=== PATIENT | female | born 1955 | race Caucasian/White ===

== ENCOUNTER 2016-04-30 10:53 | Day surgery (SDC) | payer OTHER ==
--- NOTE | 2016-04-20 18:08 | HISTORY & PHYSICAL EXAMINATION ---
DATE OF ADMISSION: 04/30/2016 CHIEF COMPLAINT: Right knee pain. HISTORY OF PRESENT ILLNESS: The patient is a 60-year-old female who complains of right knee pain. She presents with pain on the right side. They were acute traumatic on 02/26/2016. This occurred at work. 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 It is described as aching, sharp and throbbing. The patient then obtained an MRI which showed a medial meniscal tear. PAST MEDICAL HISTORY: Significant for hypertension, hypercholesterolemia, [id number] diabetes. PAST SURGICAL HISTORY: Three C-sections. SOCIAL HISTORY: She denies alcohol use. She denies tobacco use. She denies IV drug use. She lives in a 2-story house. FAMILY HISTORY: Noncontributory. MEDICATIONS: Glipizide 5 mg once a day, metformin 1000 mg 2 times a day, amlodipine 10 mg once a day, atenolol 25 mg once a day, oxybutynin ER 15 mg once a day, fish oil 3 times a day, aspirin 81 mg once a day. ALLERGIES: She has no known drug allergies. REVIEW OF SYSTEMS: She denies fevers, chills, headaches, weight loss, double vision or hearing loss, tremors, dizziness, numbness or tingling, tired, thirsty, hot and cold intolerance, abdominal pain, nausea, vomiting, diarrhea, chest pain, swelling into her legs or feet. Frequency going to the bathroom, pain or burning with urination, incontinence, wheezing, cough, shortness of breath, depression, thoughts of harming herself or harm others, nervousness or anxiousness. She is positive for joint pain, stiffness and swelling of the right knee. OBJECTIVE: GENERAL APPEARANCE: The patient is a 60-year-old female sitting in no acute distress, well dressed, well nourished. She is awake, alert and oriented x3. VITAL SIGNS: She is 5 foot 3 inches, 323 pounds. HEENT: Extraocular movements are intact. PERRLA. Mucosa was moist. No septal deviation. NECK: Supple with no lymphadenopathy, no JVD, no thyromegaly. HEART: Regular rate and rhythm with no murmurs or gallops. LUNGS: Clear to auscultation. No wheezes or rhonchi. ABDOMEN: Soft, nontender, nondistended. Normal bowel sounds. No hepatosplenomegaly. EXTREMITIES: Paying particular attention to the right knee. She is tender along the medial joint line. She is able to extend to 0 degrees, flex to 90 degrees actively. She has a positive Tamia's on the medial joint line. Negative Oracio, negative anterior drawer, posterior drawer. Negative valgus and varus stress tests. NEUROLOGIC: Cranial nerves II through XII are intact. Pulses were compared bilaterally and was equal. IMAGING: MRI of the right knee shows mild chondromalacia patella, mild contusion in the medial femoral condyle, slight truncation of the posterior horn of the medial as well as lateral meniscus and a moderate joint effusion. IMPRESSION: Right knee medial meniscal tear. PLAN: The patient is scheduled to have a partial medial meniscectomy of the right knee. We discussed various treatments and she wishes to proceed with an arthroscopy with partial medial meniscectomy. Risks and benefits to surgery would include but not limited to infection, DVT, pain, stiffness, need for revision surgeries, failure to relieve all symptoms, damage to blood vessels, nerves and anesthesia risks were all discussed with the patient. She wishes to proceed. All questions were answered to her satisfaction. JAYDEN
[2016-04-27 08:39] VITALS: BMI 57.0
--- NOTE | 2016-04-27 09:06 | PAT Medication Instructions ---
Service Date Apr 27, 2016. Current Home Medication List Amlodipine (Norvasc), 10 MG PO QAM Aspirin Enteric Coated (Ecotrin Or Generic *), 81 MG PO QAM Atenolol (Tenormin), 25 MG PO QAM Fish Oil (Dos Rios-3), 1 CAP PO TID Glipizide (Glipizide Er), 1 TAB PO QAM Ibuprofen (Advil), 400 MG PO PRN Metformin HCL (Glucophage *), 1,000 MG PO BID Oxybutynin Chloride (Ditropan Unknown Dose), 15 MG PO QAM Medication Instructions For Your Scheduled Surgery - Hold the following medications 48 hours prior to surgery: Metformin HCL (Glucophage *), 1,000 MG PO BID Fish Oil (Dos Rios-3), 1 CAP PO TID - Hold the following medications the morning of surgery: Glipizide (Glipizide Er), 1 TAB PO QAM Oxybutynin Chloride (Ditropan Unknown Dose), 15 MG PO QAM - Take the following medications the morning of surgery with a sip of water OTHERWISE NOTHING TO EAT OR DRINK AFTER MIDNIGHT: Amlodipine (Norvasc), 10 MG PO QAM Atenolol (Tenormin), 25 MG PO QAM Aspirin Enteric Coated (Ecotrin Or Generic *), 81 MG PO QAM If you have any questions please call us at [phone] or [phone] or [phone]
[2016-04-27 09:42] LABS: BASO % 0.5 %; BASO ABS # 0.03 K/uL (0-0.2); COMPLETE YES; EOS % 6.8 %; IG% 0.2 %; LYMPH % 32.7 %; LYMPH ABS # 2.12 K/uL (1.2-3.4); MEAN CELL VOLUME 96.6 fL (80-100); MEAN CORPUSCULAR HEMOGLOBIN 31.9 pg (25-34); MEAN PLATELET VOLUME 10.3 fL (7.4-10.4); MONO % 6.3 %; NEUT % 53.5 %; PLATELET COUNT 246 K/uL (130-400); RED BLOOD COUNT 3.83 M/uL (4.2-5.4); WHITE BLOOD COUNT 6.49 K/uL (4.8-10.8)
[2016-04-27 10:04] LABS: CALCIUM 8.6 mg/dl (8.5-10.1); CREATININE 0.89 mg/dl (0.60-1.20); POTASSIUM 4.6 mmol/L (3.5-5.1)
[2016-04-27 15:35] LABS: URINE APPEARANCE CLEAR (CLEAR); URINE BILIRUBIN NEG (NEG); URINE COLOR YELLOW; URINE NITRITE NEG (NEG); URINE PH 5.5 (4.5-7.5); URINE SPECIFIC GRAVITY 1.025 (1.000-1.030); UROBILINOGEN NEG (NEG)
[2016-04-27 15:39] LABS: MANUAL MICROSCOPIC REQUIRED? NO; REVIEW REQ? NO
[~2016-04-30] VITALS: Ht 162.6 cm; Wt 149.9 kg
[~2016-04-30 10:53] MED LIST: AMLO-114 PO; ASPEC81 PO; ATEN-173 PO; FENTANYL CITRATE INJ 50 MCG/1 ML 2 ML VIAL ONE; GLC500 PO; GLIP-197 PO; IBUP-1050 PO; LACTATED RINGER'S 1000ML 1,000 ML IV SCH; LIDOCAINE HCL 2% 2 ML VIAL (20MG/ML) ONE; MIDAZOLAM HCL 1 MG/ML 2ML VIAL ONE; OMEG10007 PO; PROPOFOL IV EMULSION 10 MG/ML 20 ML VIAL IV ONE; SUCCINYLCHOLINE CHLORIDE 20 MG/ML 10 ML VIAL IV ONE; [UNRECOGNIZED DRUG - OTHER] PO
[2016-04-30 11:20] VITALS: BP 128/85; PULSE 65; TEMP 36.8; O2SAT 94; Ht 162.6 cm; Wt 149.9 kg
[2016-04-30] MEDS ORDERED: CEFAZOLIN IV 3,000 MG/65 ML D5W IV ONE (11:43)
[2016-04-30] MEDS ORDERED: LIDOCAINE/EPINEPHRINE 1% 20 ML VIAL ONE (12:16)
[2016-04-30] MEDS ORDERED: BUPIVACAINE 0.5 % 5 MG/1 ML MPF 30ML VIAL ONE (12:16)
[2016-04-30] MEDS ORDERED: ROCURONIUM BROMIDE 10 MG/ML 5 ML VIAL ONE (12:54)
--- NOTE | 2016-04-30 16:19 | History & Physical Bridge Note ---
H&P Re-Evaluation Bridge Note: I have examined the patient, reviewed the History & Physical and in the interval since the performance of the History & Physical I have noted the following changes of clinical significance: No changes noted
[2016-04-30] MEDS ORDERED: HYDR-5688 PO (16:20)
--- NOTE | 2016-04-30 16:25 | Discharge Instructions ---
Discharge Instructions Visit Reason for Visit: Right Knee Medial Meniscus Tear Discharge Discharge Diagnosis / Problem: Right knee partial medial meniscetomy Discharge Goals Goal(s): Decrease discomfort, Improve function Activity Recommendations Activity Limitations: per Instructions/Follow-up section Anesthesia . Post Anesthesia Instructions: If you have had General Anesthesia or IV Sedation: * Do not drive today. * Resume driving when surgeon permits. * Do not make important decisions or sign legal documents today. * Call surgeon for: 1. Temperature elevations greater than 101 degrees F. 2. Uncontrollable pain. 3. Excessive bleeding. 4. Persistent nausea and vomiting. 5. Medication intolerance (nausea, vomiting or rash). * For nausea and vomiting use only clear liquids such as: tea, soda, bouillon until nausea subsides, then gradually increase diet as tolerated. * If you have any concerns or questions, call your surgeon's office. If physician is unavailable and it is an emergency, call 911 or go to the nearest emergency room. . Instructions / Follow-Up Instructions / Follow-Up ACTIVITY RECOMMENDATIONS: * You may walk on the leg with or without crutches as comfort permits. * Bending of the knee should start at once. * Do not shower for 48 hours following surgery. SPECIAL CARE INSTRUCTIONS: * You may cleanse the skin adjacent to the small wounds with soap and water at the time of the first dressing change. * The application of an ice bag to the front and sides of the knee will decrease swelling and discomfort for the first 48 hours. * The small incisions may be sore and develop bruising. This bruising does not require any special care. SPECIAL PRECAUTIONS: * If you experience unusual pain unrelieved by prescriptions, temperature elevation (100 degrees F. or above) or progressive swelling or bleeding, you should contact our office at for further evaluation. * You may have been prescribed pain medication. If you experience nausea and/or fine skin rash, discontinue this medication and contact our office at for an alternate medication. DRESSING: * Dressing should be comfortable and absorb any leakage of fluid and/or blood. * The dressing may become moist or bloodstained. * Dressing may be removed 48 hours after surgery and bandaids placed over the small surgical incisions. If can be removed sooner if it becomes very soiled or loose. * Bandaids may be used over next several days as needed and can be discontinued when there is not further drainage from the wounds. FOLLOW UP VISIT: If appointment is not already scheduled: Please call [facility] to make a follow-up appointment for your surgery at 12-14 days after surgery Diet Recommendations Recommended Home Diet: resume previous diet Procedures Procedures Performed: Right Knee Arthroscopy with Partial Medial Menisectomy Pending Studies Studies pending at discharge: no Medical Emergencies . Who to Call and When: Medical Emergencies: If at any time you feel your situation is an emergency, please call 911 immediately. . Non-Emergent Contact Non-Emergency issues call your: Surgeon Call Non-Emergent contact if: temperature is above 101, your pain is not controlled, wound has increased drainage, wound has increased redness, wound has increased pain . . "Provider Documentation" section prepared by Sonny Mccarthy.
[2016-04-30] MEDS ORDERED: ONDANSETRON INJ 2 MG/ML 2 ML VIAL IV PRN ×2 (16:30→17:30)
[2016-04-30] MEDS ORDERED: IBUPROFEN 600 MG TAB PO PRN (16:30)
[2016-04-30] MEDS ORDERED: HYDROCODONE/ACETAMOPHEN 5/325MG TAB PO PRN (16:30)
[2016-04-30] MEDS ORDERED: ONDANSETRON INJ 2 MG/ML 2 ML VIAL ONE (16:43)
[2016-04-30] MEDS ORDERED: LARYING-O-JET KIT (LTA) EXT ONE ×2 (17:10)
[2016-04-30] MEDS ORDERED: LACTATED RINGER'S 1000ML 1,000 ML IV PRN (17:17)
--- NOTE | 2016-04-30 17:21 | [facility] Post Operative Brief Note ---
Immediate Operative Summary Operative Date Apr 30, 2016. Pre-Operative Diagnosis Right medial meniscal tear Post-Operative Diagnosis Same as preoperative diagnosis + LMT, chondromalcia patella Procedure(s) Performed Right Knee Arthroscopy with Partial Medial Menisectomy Surgeon Dr iLu Rolloff Driver Surgeon(s) 0 Estimated Blood Loss min Findings above Specimens 0 Drains 0 Anesthesia geta Complication(s) None Disposition Recovery Room / PACU
[2016-04-30] MEDS ORDERED: NEOSTIGMINE METHYLSULFATE 5 MG/5 ML SYR ONE (17:27)
[2016-04-30] MEDS ORDERED: GLYCOPYRROLATE INJ 0.2 MG/ML VIAL ONE (17:27)
[2016-04-30] MEDS ORDERED: PROPOFOL IV EMULSION 10 MG/ML 20 ML VIAL IV ONE (17:27)
[2016-04-30] MEDS ORDERED: KETOROLAC TROMETHAMINE 30 MG/ML VIAL IV. PRN (17:30)
[2016-04-30] MEDS ORDERED: FENTANYL CITRATE INJ 50 MCG/1 ML 2 ML VIAL IV PRN (17:30)
[2016-04-30] MEDS ORDERED: FENTANYL CITRATE INJ 50 MCG/1 ML 2 ML VIAL ONE (17:36)
--- NOTE | 2016-04-30 17:54 | Anesthesiology Progress Note ---
Anesthesia Post Op Note Date & Time Apr 30, 2016 at 17:53 Vital Signs Pain Intensity: 4 Vital Signs Past 12 Hours Date Time Temp Pulse Resp B/P Pulse Ox O2 Delivery O2 Flow Rate FiO2 04/30/16 17:35 46 12 158/60 99 Mask 10 04/30/16 17:27 36.7 51 16 116/61 100 Mask 10 04/30/16 11:20 36.8 65 16 128/85 94 Room Air Notes Mental Status: alert / awake / arousable, participated in evaluation Pt Amnestic to Procedure: Yes Nausea / Vomiting: adequately controlled Pain: adequately controlled Airway Patency, RR, SpO2: stable & adequate BP & HR: stable & adequate Hydration State: stable & adequate Anesthetic Complications: no major complications apparent Pt doing well.
[2016-04-30 18:10] VITALS: BP 154/61; PULSE 52; TEMP 36.4; O2SAT 98
[2016-04-30 18:45] VITALS: BP 159/83; PULSE 57; TEMP 36.4; O2SAT 95
--- NOTE | 2016-05-01 01:03 | OPERATIVE REPORT ---
DATE OF OPERATION: 04/30/2016 PREOPERATIVE DIAGNOSIS: Right knee medial meniscal tear. POSTOPERATIVE DIAGNOSIS: Same plus lateral meniscal tear, chondromalacia patella. PROCEDURES: Right partial medial meniscectomy, partial lateral meniscectomy, chondroplasty of patella. SURGEON: Dr. Liu. SECURITY REPRESENTATIVE: None. ANESTHESIA: General endotracheal anesthesia. SPECIMENS: None. COMPLICATIONS: None. ESTIMATED BLOOD LOSS: Minimal. INDICATIONS: The patient is a 60-year-old female with progressive pain in the right knee. MRI demonstrated a tear of the medial meniscus. We discussed various treatment measures, she wished to proceed with arthroscopy. Risks, benefits, and alternatives of surgery including but not limited to infection, DVT, pain, stiffness, need for urgent surgery, failure to relieve all symptoms, damage to blood vessels, damage to nerves, risks of anesthesia discussed with patient and she wished to proceed. DESCRIPTION OF PROCEDURE: The patient was identified, laterality was confirmed and marked. She received a preoperative antibiotic. She was transferred to the operating room, placed in supine position and induced in general endotracheal anesthesia per the anesthesia staff. A well-padded tourniquet was placed on the leg. Limb was then prepped and draped with ChloraPrep. Limb was exsanguinated and tourniquet was inflated. Portal sites were anesthetized with 1% lidocaine with epinephrine. I made a standard anterolateral viewing portal, made a stab incision, bluntly entered the suprapatellar pouch and then under spinal needle localization, established an anteromedial portal. She had grade 2 undersurface change of the patella. Unstable chondral flaps were debrided back to a stable base utilizing a shaver. She had grade 3 changes diffusely over the cartilage of the medial femoral condyle. This was debrided utilizing a shaver. She had a tear of the posterior horn of the medial meniscus near the meniscal root. This was debrided back to a stable base utilizing combination of shaver as well as meniscal biter. ACL and PCL were intact. She had a small degenerative tearing of the body and anterior horn of the lateral meniscus. This was debrided back to a stable base utilizing a shaver. All instrumentation was removed the knee. Portal sites were closed with nylon. Sterile dressing was applied and tourniquet was released. All needle and sponge counts were correct at the end of the procedure. The patient was transferred to the PACU in stable condition without apparent complication. I attest to the content of the Intraoperative Record and any orders documented therein. Any exceptio ns are noted below.
== END 2016-04-30 19:01 | disposition home or self-care (01) ==
LOC: C.ACU 10:53
PROVIDERS: ATTEND Orthopaedic Surgery
DX: M23.221 Derangement of posterior horn of medial meniscus due to old tear or injury, right knee (principal); M23.241 Derangement of anterior horn of lateral meniscus due to old tear or injury, right knee; M22.41 Chondromalacia patellae, right knee; I10 Essential (primary) hypertension; E78.00 Pure hypercholesterolemia, unspecified; E11.9 Type 2 diabetes mellitus without complications; Z79.82 Long term (current) use of aspirin

== ENCOUNTER → 2016-10-13 | Outpatient (CLI) | payer OTHER ==
[~2016-10-13] MED LIST changes: -FENTANYL CITRATE INJ 50 MCG/1 ML 2 ML VIAL ONE; +HYDR-5688 PO; -LACTATED RINGER'S 1000ML 1,000 ML IV SCH; -LIDOCAINE HCL 2% 2 ML VIAL (20MG/ML) ONE; -MIDAZOLAM HCL 1 MG/ML 2ML VIAL ONE; -PROPOFOL IV EMULSION 10 MG/ML 20 ML VIAL IV ONE; -SUCCINYLCHOLINE CHLORIDE 20 MG/ML 10 ML VIAL IV ONE
[2016-10-13 15:59] LABS: URINE APPEARANCE CLOUDY (CLEAR); URINE BILIRUBIN NEG (NEG); URINE COLOR DK YELLOW; URINE EPITHELIAL CELL AUTO >30 /lpf (0-5); URINE NITRITE NEG (NEG); URINE SPECIFIC GRAVITY 1.034 (1.000-1.030); UROBILINOGEN NEG (NEG)
[2016-10-13 16:03] LABS: MANUAL MICROSCOPIC REQUIRED? NO; REVIEW REQ? YES
== END | disposition home or self-care (01) ==
LOC: C.LAB1850 14:34
PROVIDERS: ATTEND Nurse Practitioner Family
DX: R39.9 Unspecified symptoms and signs involving the genitourinary system (principal)

== ENCOUNTER → 2016-11-15 | Outpatient (CLI) | payer OTHER ==
[~2016-11-15] MED LIST changes: -HYDR-5688 PO
[2016-11-15 12:38] LABS: ALT/SGPT 26 U/L (12-78); AST/SGOT 15 U/L (15-37); BLOOD UREA NITROGEN 19 mg/dl (7-18); BUN/CREATININE RATIO 21.4 (10-20); CALCIUM 9.1 mg/dl (8.5-10.1); CARBON DIOXIDE 27 mmol/L (21-32); CHLORIDE 106 mmol/L (98-107); CHOLESTEROL 192 mg/dl (0-200); CREATININE 0.88 mg/dl (0.60-1.20); GLUCOSE 104 mg/dl (70-99); POTASSIUM 4.2 mmol/L (3.5-5.1); SODIUM 141 mmol/L (136-145)
[2016-11-15 12:40] LABS: ALKALINE PHOSPHATASE 86 U/L (45-117); CHOLESTEROL/HDL RATIO 4.7; ESTIMATED AVERAGE GLUCOSE 126 mg/dl; HA1C FLAG Normal (Normal); HDL CHOLESTEROL 41 mg/dl; LDL CHOLESTEROL CALCULATED 90 mg/dl; TRIGLYCERIDES 307 mg/dl (0-150); VERY LOW DENSITY LIPOPROT CALC 61 mg/dl
== END | disposition home or self-care (01) ==
LOC: C.LAB1850 09:56
PROVIDERS: ATTEND Nurse Practitioner Family
DX: E78.5 Hyperlipidemia, unspecified (principal); E88.81 Metabolic syndrome and other insulin resistance; E11.9 Type 2 diabetes mellitus without complications

== ENCOUNTER → 2017-03-23 | Outpatient (CLI) | payer OTHER ==
[~2017-03-23] MED LIST changes: -AMLO-114 PO; +AMLO10TA3 PO
[2017-03-23 15:19] LABS: INFLUENZA A PCR Neg for Influ A (NEG); INFLUENZA B PCR Neg for Influ B (NEG)
== END | disposition home or self-care (01) ==
LOC: C.LAB1850 13:37
PROVIDERS: ATTEND Internal Medicine
DX: J04.0 Acute laryngitis (principal)

== ENCOUNTER → 2017-11-09 | Outpatient (CLI) | payer OTHER ==
[2017-11-09 10:02] LABS: ALBUMIN 3.6 gm/dl (3.4-5.0); ALKALINE PHOSPHATASE 73 U/L (45-117); ALT/SGPT 29 U/L (12-78); AST/SGOT 17 U/L (15-37); BLOOD UREA NITROGEN 21 mg/dl (7-18); CALCIUM 9.3 mg/dl (8.5-10.1); CARBON DIOXIDE 27 mmol/L (21-32); CHOLESTEROL 154 mg/dl (0-200); CREATININE 1.01 mg/dl (0.60-1.20); GLUCOSE 109 mg/dl (70-99); LDL CHOLESTEROL CALCULATED 51 mg/dl; POTASSIUM 4.1 mmol/L (3.5-5.1); SODIUM 141 mmol/L (136-145); TOTAL PROTEIN 7.2 gm/dl (6.4-8.2)
[2017-11-09 10:08] LABS: HEMOGLOBIN A1C 6.2 % (4.5-5.6)
== END | disposition home or self-care (01) ==
LOC: C.LAB1850 07:52
PROVIDERS: ATTEND Internal Medicine
DX: E88.81 Metabolic syndrome and other insulin resistance (principal)

== ENCOUNTER 2022-01-29 11:59 | Inpatient (IN) ==
[2022-01-29 12:33] LABS: Basophils # (auto) 0.06 K/uL (0-0.2); Basophils % (auto) 0.9 %; Eosinophils # (auto) 0.42 K/uL (0-0.50); Eosinophils % (auto) 6.3 %; Hematocrit (blood only) 38.8 % (34.1-44.9); Hemoglobin 12.8 g/dl (12.0-16.0); Immature Granulocytes # (auto) 0.01 K/uL (0.00-0.02); Immature Granulocytes % (auto) 0.1 %; Lymphocytes # (auto) 2.11 K/uL (1.2-3.4); Lymphocytes % (auto) 31.6 %; Mean Corpuscular Hemoglobin 31.8 pg (25.0-34.0); Mean Corpuscular Volume 96.5 fL (80.0-100.0); Mean Platelet Volume 10.5 fL (9.4-12.3); Monocytes # (auto) 0.49 K/uL (0.24-0.82); Monocytes % (auto) 7.3 %; Neutrophils # (auto) 3.58 K/uL (1.4-6.5); Neutrophils % (auto) 53.8 %; Platelet Count 213 K/uL (130-400); RDW Coefficient of Variation 13.6 % (11.5-14.5); RDW Standard Deviation 48.7 fL (36.4-46.3); Red Blood Count 4.02 M/uL (3.93-5.22); White Blood Count 6.67 K/ul (4.8-10.8)
[2022-01-29 12:47] LABS: Partial Thromboplastin Time 26.8 Seconds (21.0-31.0); Prothrombin Time 10.8 Seconds (9.0-12.0)
--- NOTE | 2022-01-29 12:51 | XRay Report ---
TWO VIEW CHEST CLINICAL HISTORY: Dyspnea. FINDINGS: PA and lateral chest radiographs are compared to study dated 06/15/2017. The heart is marked ly enlarged. There is pulmonary vascular congestion. Bibasilar airspace opacities likely represent sc arring/atelectasis. There is no large pleural effusion or pneumothorax. The skeletal structures are o steopenic. The bony thorax appears intact. Degenerative change is noted throughout the thoracic spine . IMPRESSION: 1. Cardiomegaly with evidence of congestive failure. 2. Bibasilar opacities likely represent scarring/atelectasis. Correlate clinically for evidence of a superimposed infectious/inflammatory pneumonitis ACT 112: Negative or not required by law. Electronically signed by: Reuben Pappas M.D. 01/29/2022 12:49 PM
[2022-01-29 13:11] LABS: Albumin Globulin Ratio 1.5 (0.9-2); Albumin Level 4.1 gm/dl (3.4-5.0); BUN Creatinine Ratio 20.5 (10-20); Bilirubin,Total 0.7 mg/dl (0.2-1.0); Est GFR (African American) 86.4 ml/min; Est GFR (Non-African American) 74.5 ml/min; Globulin 2.8 gm/dl (2.5-4.0); Magnesium 1.8 mg/dl (1.7-2.4); Potassium 4.3 mmol/L (3.5-5.1); Total Protein 6.9 gm/dl (6.0-8.3)
--- NOTE | 2022-01-29 14:35 | Emergency Department Note ---
Impression & Plan Hypoxia, Hypertension, Lower lobe pneumonia, COVID-19, Elevated troponin I level ED Provider Note Provider: Abdiel Beard MD DATE OF SERVICE: 01/29/2022 CHIEF COMPLAINT: Shortness of breath HISTORY OF PRESENT ILLNESS: Patient is a 66-year-old female history of diabetes, hypertension, and obesity presenting here today reporting that over the past about 6 months she has noticed she has been a bit more short of breath particular with exertion. Denies any pain complaint previously or today in her chest or otherwise. Denies fainting or lightheadedness. Patient states she isolated heavily for COVID and just came out this spring from that and would get short of breath with walking. States she gets short of breath going up the stairs some too. Did have COVID which was minimal with only some cold symptoms for a couple of days at the beginning of last month. She was vaccinated for COVID. Denies significant recent cough or fevers. No significant abdominal complaints reported or significant leg swelling. Patient states that her breathing last year to see maybe little bit worse and they got a home pulse ox. This read in the 80s. She states she did this after resting for at least several minutes. She does state that particular when going up the stairs she has to stop and sit at the top for little while to recover. She states she called her doctor's office with the low oxygen reading at 83 earlier which she does report did improve over just a bit of time into the mid 90s at home and she was referred here. REVIEW OF SYSTEMS: A total of 10 review of systems was obtained and negative except as stated above in the HPI. PAST MEDICAL HISTORY: As noted above MEDICATIONS: Reviewed home medications including 1 mg aspirin SOCIAL HISTORY: Non-smoker, lives at home with and dog PHYSICAL EXAM: GENERAL: alert and oriented in no acute distress on stretcher Head: normocephalic and atraumatic EYES: No injection, discharge or icterus. NECK: Trachea midline. Supple. ENT: Mucous membranes pink and moist. Pharynx without erythema or exudate. LUNGS: Airway patent. No retractions. Breath sounds clear with Diminished bases HEART: Regular rate and rhythm. No chest wall tenderness ABDOMEN: Soft and non-tender, without guarding or rebound. SKIN: Acyanotic, warm, dry, without rashes EXTREMITIES: Without swelling, tenderness or deformity NEUROLOGICAL: No focal deficits. No aphasia. No facial droop or slurred speech. Ambulatory. EK bpm normal sinus rhythm. No PVC or PAC. Some inferior lateral T wave inversions noted. QTc 452. Compared to previous EKG from April 2016 inferior lateral T wave inversions appear new. Although nonspecific T wave inversions noted previously. CONTINUOUS CARDIAC MONITORING: was ordered and showed a heart rate of 80s-90s bpm in NSR Patient's laboratory studies and imaging reviewed. Differential includes Reactive airway disease, pneumonia, pneumothorax, COPD, CHF, infections, cardiac ischemia, pulmonary embolism, musculoskeletal, gastrointestinal, as well as other pathologies. IMPRESSION/MEDICAL DECISION MAKING: Patient with some chronicity of shortness of breath along the past 6 months. Worse last several days. COVID a month ago but no significant effect and symptom without states COVID was pretty minimal for her and she was vaccinated. Patient denies other sick contacts or significant leg swelling. Denies any chest neck or arm pain. Patient's symptoms mainly there with exertion. Maybe some component of deconditioning and some relation to obesity. Chest x-ray question some atelectasis but does not clearly seem consistent with pneumonia. EKG and troponin completed blood lower suspicion for ACS as she is not having significant chest discomfort. Given recent COVID and her shortness of breath with oxygen levels in the low 90s at rest did complete a CTA to exclude PE. Patient ambulates in the room and is able to talk during this and sats drop very transiently into the high 80s with them very quickly rebounded after this. Some cardiomegaly on the chest x-ray indicates again this may be more of a chronic issue. Have a lower suspicion for severe acute CHF. Blood pressure seems significant elevated discussed with her following this. CT without evidence of PE per report. The question some mild pulm edema & small bilateral pleural effusions. Question bilateral lower lobe pneumonia. Patient's oxygen requirement while here after CT increased fair amount now to 10-15 L on nonrebreather. Troponin mildly elevated likely more demand from some hypoxia. Given that she require admission. We will give some ceftriaxone at this time for antibiotic coverage and give a small dose of Lasix for any fluid overload. Continues to test COVID-positive but again had this just over a month ago and may continue to be positive from that. Hospitalist contacted and patient updated. DIAGNOSIS: hypoxia, lower lobe pneumonia, elevated troponin, hypertension, pleural effusions DISPOSITION: Hospitalist will evaluate Patient was agreeable with this plan. Critical Care I have personally spent 33 minutes of critical care time in the direct management of this patient. This includes bedside care, interpretation of diagnostic studies, and testing, discussion with consultants, patient, and family members, and other required patient management activities. These 33 minutes is in excess of all separately billable procedures. Past Med/Surg History Medical History (Updated 01/29/22 @ 17:28 by Omaira Morley PA-C) Diabetes mellitus, type 2 NIDDM GERD (gastroesophageal reflux disease) OCCASIONALLY Hyperlipidemia Hypertension Overactive bladder Surgical History History of arthroscopy RIGHT KNEE History of section X3 History of colonoscopy History of tonsillectomy S/P nasal surgery Family History Daughter Asthma Sister Breast cancer Father Heart disease Mother Hypertension Hypercholesteremia Brother Hypertension Other No pertinent family history Denies family history of Ovarian cancer Prostate cancer Myocardial infarction Colorectal cancer Social History (Updated 11/13/21 @ 09:51 by SHAWN Sloan) Smoking Status: Never smoker Second Hand Exposure: No ( A CHILD); Hx Alcohol Use: No Hx Substance Use: No Preferred Language: Icelandic Communication Ability: Effective Visual Impairment: No Limitations Hearing Ability: Normal Consulting Senior Practice Director Required: No Beliefs That Will Affect Care: None marital status: Current Living Situation: Spouse current occupational status: employed Feels Safe at Home: Yes Childhood Exposure to Second-Hand Smoke: Yes (parent smoked) caffeine: Yes Seatbelt Use: always Assistive Devices: Glasses Allergies Allergies Allergy/AdvReac Type Severity Reaction Status Date / Time MICHELLE Inhibitors Allergy Intermediate EYE Verified 01/29/22 16:40 SWELLING atorvastatin AdvReac Intermediate MUSCLE Verified 01/29/22 16:40 ACHES Home Meds Home Medications Medication Instructions Recorded Confirmed aspirin 81 mg tablet,delayed 81 mg PO QAM 02/15/18 01/29/22 release (Mirta Low Dose Aspirin) omega-3 fatty acids-fish oil 360 2 cap PO TID 11/21/18 01/29/22 mg-1,200 mg capsule (Fish Oil) blood-glucose meter 11/12/21 11/13/21 cholecalciferol (vitamin D3) 125 125 mcg PO DAILY 01/29/22 01/29/22 mcg (5,000 unit) tablet (Vitamin D3) ibuprofen 200 mg tablet 200 mg PO DIRECTED PRN Pain 01/29/22 01/29/22 mirabegron 50 mg tablet,extended 50 mg PO DAILY 01/29/22 01/29/22 release 24 hr (Myrbetriq) tolterodine 4 mg capsule,extended 4 mg PO DAILY 01/29/22 01/29/22 release 24 hr Previous Rx's Medication Instructions Recorded mecobalamin (vitamin B12) 1,000 1,000 mcg sublingual DAILY #90 tabs 07/30/19 mcg disintegrating tablet,sublingual losartan 25 mg tablet 25 mg PO QAM #90 tabs 06/29/21 liraglutide 0.6 mg/0.1 mL (18 mg/3 1.8 mg (0.3 mL) subcut DAILY #3 08/03/21 mL) subcutaneous pen injector Boxes ([employer] 3-Christiano) simvastatin 20 mg tablet 20 mg PO HS #90 tabs 08/03/21 amlodipine 10 mg tablet 10 mg PO QAM #90 tabs 09/14/21 pen needle, diabetic 32 gauge x #100 ea 11/12/21 532" (BD Ultra-Fine Nuris Pen Needle) metformin 1,000 mg tablet 1,000 mg PO BID #180 tabs 11/13/21 Results & Data (ED) Vital Signs Vital Signs - 24 hr 01/29/22 12:02 01/29/22 13:15 01/29/22 13:15 Temperature 36.1 C L Temperature Source Temporal Artery Scan Pulse Rate 96 H Pulse Rate [Right Finger] 86 Respiratory Rate 20 22 Respiratory Depth Normal Blood Pressure 163/100 H Blood Pressure [Right Arm] 172/107 H Blood Pressure Mean 121 Blood Pressure Mean [Right Arm] 128 Blood Pressure Position Sitting Pulse Oximetry 92 92 Oxygen Delivery Method Room Air Room Air Room Air Sepsis Recent Fever Within 48 Hours No Sepsis New/Unexplained Change in Mental Status No Sepsis Action Taken by Nursing No Action Required Pulse Oximetry Post Tiitration 92 01/29/22 13:15 01/29/22 16:33 Temperature Temperature Source Pulse Rate Pulse Rate [Right Finger] 81 Respiratory Rate Respiratory Depth Blood Pressure Blood Pressure [Right Arm] Blood Pressure Mean Blood Pressure Mean [Right Arm] Blood Pressure Position Pulse Oximetry 92 95 Oxygen Delivery Method Room Air Non-rebreather Sepsis Recent Fever Within 48 Hours Sepsis New/Unexplained Change in Mental Status Sepsis Action Taken by Nursing Pulse Oximetry Post Tiitration Laboratory Data Result diagrams: 01/29/22 12:13 01/29/22 12:13 Lab Results 01/29/22 01/29/22 01/29/22 Range/Units 12:13 12:13 12:13 WBC 6.67 (4.8-10.8) K/ul RBC 4.02 (3.93-5.22) M/uL Hgb 12.8 (12.0-16.0) g/dl Hct 38.8 (34.1-44.9) % MCV 96.5 (80.0-100.0) fL MCH 31.8 (25.0-34.0) pg MCHC 33.0 (32.0-36.0) g/dL RDW Std Deviation 48.7 H (36.4-46.3) fL RDW Coeff of Adams 13.6 (11.5-14.5) % Plt Count 213 (130-400) K/uL MPV 10.5 (9.4-12.3) fL Immature Gran % (Auto) 0.1 % Neut % (Auto) 53.8 % Lymph % (Auto) 31.6 % Morgan % (Auto) 7.3 % Eos % (Auto) 6.3 % Baso % (Auto) 0.9 % Neut # (Auto) 3.58 (1.4-6.5) K/uL Lymph # (Auto) 2.11 (1.2-3.4) K/uL Morgan # (Auto) 0.49 (0.24-0.82) K/uL Eos # (Auto) 0.42 (0-0.50) K/uL Baso # (Auto) 0.06 (0-0.2) K/uL Immature Gran # (Auto) 0.01 (0.00-0.02) K/uL PT 10.8 (9.0-12.0) Seconds INR 1.0 (0.9-1.1) APTT 26.8 (21.0-31.0) Seconds PTT Ratio 1.0 Sodium 144 (136-145) mmol/L Potassium 4.3 (3.5-5.1) mmol/L Chloride 110 H (98-107) mmol/L Carbon Dioxide 27 (21-32) mmol/L Anion Gap 7 (3-11) BUN 17 (6-23) mg/dl Creatinine 0.83 (0.6-1.2) mg/dl Est Cr Clr Drug Dosing 95.0 ml/min Est GFR ( Amer) 86.4 ml/min Est GFR (Non-Af Amer) 74.5 ml/min BUN/Creatinine Ratio 20.5 H (10-20) Glucose 111 H (70-99(Fasting)) mg/dl Calcium 9.0 (8.5-10.1) mg/dl Magnesium 1.8 (1.7-2.4) mg/dl Total Bilirubin 0.7 (0.2-1.0) mg/dl AST 25 (13-39) U/L ALT 34 (7-52) U/L Alkaline Phosphatase 61 (34-104) U/L Troponin I High Sens (0-14) pg/ml Total Protein 6.9 (6.0-8.3) gm/dl Albumin 4.1 (3.4-5.0) gm/dl Globulin 2.8 (2.5-4.0) gm/dl Albumin/Globulin Ratio 1.5 (0.9-2) Procalcitonin (0-0.5) ng/ml SARS-CoV-2 (PCR) (Negative) Influenza Type A (PCR) (Neg) Influenza Type B (PCR) (Neg) RSV (RT-PCR) (Neg) 01/29/22 01/29/22 01/29/22 Range/Units 12:13 12:13 14:07 WBC (4.8-10.8) K/ul RBC (3.93-5.22) M/uL Hgb (12.0-16.0) g/dl Hct (34.1-44.9) % MCV (80.0-100.0) fL MCH (25.0-34.0) pg MCHC (32.0-36.0) g/dL RDW Std Deviation (36.4-46.3) fL RDW Coeff of Adams (11.5-14.5) % Plt Count (130-400) K/uL MPV (9.4-12.3) fL Immature Gran % (Auto) % Neut % (Auto) % Lymph % (Auto) % Morgan % (Auto) % Eos % (Auto) % Baso % (Auto) % Neut # (Auto) (1.4-6.5) K/uL Lymph # (Auto) (1.2-3.4) K/uL Morgan # (Auto) (0.24-0.82) K/uL Eos # (Auto) (0-0.50) K/uL Baso # (Auto) (0-0.2) K/uL Immature Gran # (Auto) (0.00-0.02) K/uL PT (9.0-12.0) Seconds INR (0.9-1.1) APTT (21.0-31.0) Seconds PTT Ratio Sodium (136-145) mmol/L Potassium (3.5-5.1) mmol/L Chloride (98-107) mmol/L Carbon Dioxide (21-32) mmol/L Anion Gap (3-11) BUN (6-23) mg/dl Creatinine (0.6-1.2) mg/dl Est Cr Clr Drug Dosing ml/min Est GFR ( Amer) ml/min Est GFR (Non-Af Amer) ml/min BUN/Creatinine Ratio (10-20) Glucose (70-99(Fasting)) mg/dl Calcium (8.5-10.1) mg/dl Magnesium (1.7-2.4) mg/dl Total Bilirubin (0.2-1.0) mg/dl AST (13-39) U/L ALT (7-52) U/L Alkaline Phosphatase (34-104) U/L Troponin I High Sens 91.7 H* (0-14) pg/ml Total Protein (6.0-8.3) gm/dl Albumin (3.4-5.0) gm/dl Globulin (2.5-4.0) gm/dl Albumin/Globulin Ratio (0.9-2) Procalcitonin < 0.05 (0-0.5) ng/ml SARS-CoV-2 (PCR) POSITIVE A* (Negative) Influenza Type A (PCR) Negative (Neg) Influenza Type B (PCR) Negative (Neg) RSV (RT-PCR) Negative (Neg) Administered Medications Discontinued Medications Furosemide (Furosemide Inj 20 Mg/2 Ml Vial) 20 mg IV ONE ONE Stop: 01/29/22 16:32 Last Admin: 01/29/22 16:40 Dose: 20 mg Documented By: IVAN Ceftriaxone Sodium (Rocephin) 2,000 mg in 70 mls @ 140 mls/hr IV NOW STA Stop: 01/29/22 17:01 Last Infusion: 01/29/22 17:16 Dose: 0 mls/hr Documented By: Admin: 01/29/22 16:41 Dose: 140 mls/hr Documented By: IVAN Ioversol (Optiray 320 500ml) 110 ml IV ONCE ONE Stop: 01/29/22 16:09 Last Admin: 01/29/22 16:11 Dose: 110 ml Documented By: DELBERT Imaging Data Radiologist's Impression: Chest X-Ray 01/29/22 12:07 TWO VIEW CHEST CLINICAL HISTORY: Dyspnea. FINDINGS: PA and lateral chest radiographs are compared to study dated 8. The heart is markedly enlarged. There is pulmonary vascular congestion. Bibasilar airspace opacities likely represent scarring/atelectasis. There is no large pleural effusion or pneumothorax. The skeletal structures are osteopenic. The bony thorax appears intact. Degenerative change is noted throughout the thoracic spine. IMPRESSION: 1. Cardiomegaly with evidence of congestive failure. 2. Bibasilar opacities likely represent scarring/atelectasis. Correlate clinically for evidence of a superimposed infectious/inflammatory pneumonitis ACT 112: Negative or not required by law. Electronically signed by: Reuben Pappas M.D. 01/29/2022 12:49 PM Chest CTA 01/29/22 14:27 CHEST CTA for PULMONARY ARTERIES CT DOSE: 1056.94 mGy.cm HISTORY: PE, shortness of breath, recent covid TECHNIQUE: Multiaxial CT images of the chest were performed following the intravenous administration of contrast to evaluate the pulmonary arteries. Maximal intensity projection images were also obtained. A dose lowering technique was utilized adhering to the principles of ALARA. COMPARISON STUDY: Chest 01/29/2022. FINDINGS: Retrograde opacification of contrast into the hepatic veins. Otherwise, the visualized liver and spleen are unremarkable. Normal thyroid gland. Normal caliber esophagus. The heart is moderately enlarged. No peric ardial effusion. There are small bilateral pleural effusions. Normal caliber thoracic aorta. The thoracic aorta is not well opacified. However, there is no definite evidence for an aortic dissection. There is an aberrant right subclavian artery. There are few mildly enlarged mediastinal lymph nodes measuring up to 12 mm in short axis diameter. No significant hilar lymphadenopathy. No suspicious lytic or blastic osseous lesions. Nondiagnostic evaluation of the bilateral lower lobe subsegmental pulmonary arteries due to the motion artifact. Otherwise, the remaining pulmonary arteries show no filling defects to suggest a pulmonary embolus. No pneumothorax. The central airways are patent. Mild respiratory motion artifact is noted. There is near diffuse interlobular septal thickening consistent with mild pulmonary edema. There are also patchy airspace opacities within the bilateral lower lobes posteriorly. This is greater than expected for atelectasis and therefore favors a pneumonia. IMPRESSION: 1. No evidence for pulmonary embolus with limitations as described above. 2. Cardiomegaly with mild pulmonary edema and small bilateral pleural effusions. 3. Patchy airspace opacities within the bilateral lower lobes posteriorly. This favors a pneumonia. 4. A few borderline-enlarged mediastinal lymph nodes which may be reactive. ACT 112: Negative or not required by law. Electronically signed by: Panfilo Anderson M.D. 01/29/2022 4:29 PM Discharge Plan Visit Data Chief Complaint: Shortness of Breath/Dyspnea Stated Complaint: SHORTNESS OF BREATH ED Provider: Abdiel Beard Discharge Problem: Hypoxia, Hypertension, Lower lobe pneumonia, COVID-19, Elevated troponin I level Patient Disposition: Admitted As Inpatient Discharge Instructions Interventions: ED Discharge Assessment Last Done: 01/29/22 19:54 : Hypertension Qualifiers: Hypertension type: unspecified Qualified Code(s): I10 - Essential (primary) hypertension Lower lobe pneumonia Qualifiers: Pneumonia type: due to unspecified organism Laterality: bilateral Qualified C ode(s): J18.9 - Pneumonia, unspecified organism
[2022-01-29 15:27] LABS: Influenza A virus by PCR Negative (Neg); Influenza B virus by PCR Negative (Neg); RSV by PCR Negative (Neg)
--- NOTE | 2022-01-29 15:37 | Electrocardiogram Report ---
Test Reason : Blood Pressure : / mmHG Vent. Rate : 094 BPM Atrial Rate : 094 BPM P-R Int : 154 ms QRS Dur : 104 ms QT Int : 362 ms P-R-T Axes : 059 011 159 degrees QTc Int : 452 ms Normal sinus rhythm Possible Left atrial enlargement T wave abnormality, consider inferolateral ischemia Abnormal ECG When compared with ECG of 27-APR-2016 09:16, QRS duration has increased T wave inversion now evident in Lateral leads Confirmed by Hugo Sepulveda ([id number]) on 01/29/2022 3:37:20 PM Referred By: Valdez Silveira Confirmed By:Hugo Sepulveda
[2022-01-29] MEDS ORDERED: OPTIRAY 320 500ml IV ONE (16:08)
[2022-01-29 16:24] LABS: SARS CoV2 RNA(COVID-19)Cepheid POSITIVE (Negative)
--- NOTE | 2022-01-29 16:30 | CT Scan Report ---
CHEST CTA for PULMONARY ARTERIES CT DOSE: 1056.94 mGy.cm HISTORY: PE, shortness of breath, recent covid TECHNIQUE: Multiaxial CT images of the chest were performed following the intravenous administration of contrast to evaluate the pulmonary arteries. Maximal intensity projection images were also obtaine d. A dose lowering technique was utilized adhering to the principles of ALARA. COMPARISON STUDY: Chest 01/29/2022. FINDINGS: Retrograde opacification of contrast into the hepatic veins. Otherwise, the visualized live r and spleen are unremarkable. Normal thyroid gland. Normal caliber esophagus. The heart is moderatel y enlarged. No pericardial effusion. There are small bilateral pleural effusions. Normal caliber thor acic aorta. The thoracic aorta is not well opacified. However, there is no definite evidence for an a ortic dissection. There is an aberrant right subclavian artery. There are few mildly enlarged mediast inal lymph nodes measuring up to 12 mm in short axis diameter. No significant hilar lymphadenopathy. No suspicious lytic or blastic osseous lesions. Nondiagnostic evaluation of the bilateral lower lobe subsegmental pulmonary arteries due to the motion artifact. Otherwise, the remaining pulmonary arteri es show no filling defects to suggest a pulmonary embolus. No pneumothorax. The central airways are p atent. Mild respiratory motion artifact is noted. There is near diffuse interlobular septal thickenin g consistent with mild pulmonary edema. There are also patchy airspace opacities within the bilateral lower lobes posteriorly. This is greater than expected for atelectasis and therefore favors a pneumo nely. IMPRESSION: 1. No evidence for pulmonary embolus with limitations as described above. 2. Cardiomegaly with mild pulmonary edema and small bilateral pleural effusions. 3. Patchy airspace opacities within the bilateral lower lobes posteriorly. This favors a pneumonia. 4. A few borderline-enlarged mediastinal lymph nodes which may be reactive. ACT 112: Negative or not required by law. Electronically signed by: Panfilo Anderson M.D. 01/29/2022 4:29 PM
[2022-01-29] MEDS ORDERED: FUROSEMIDE INJ 20 MG/2 ML VIAL IV ONE (16:31)
[2022-01-29] MEDS ORDERED: cefTRIAXone SODIUM 2,000 MG/70 ML BAG IV STA (16:32)
--- NOTE | 2022-01-29 17:07 | History & Physical Report ---
Date of Service January 29, 2022 Assessment & Plan (1) Shortness of breath: Plan: - Sounds like it is an acute worsening of chronic shortness of breath over the past several months, likely multifactorial given recent COVID-19 infection, volume overload with suspected underlying CHF, obesity hypoventilation syndrome. - Management as above. Patient currently resting comfortably. - COVID + in ED however patient was postive one month ago. does not require isolation precautions. (2) Elevated troponin I level: Plan: - Elevated at 90, no prior history of CAD, EKG with T wave inversion lateral leads, left atrial enlargement. - Patient denies any chest pain, palpitations, heaviness. - Suspect this is elevated due to hypoxia, demand mismatch. - We will trend overnight, obtain echo. - New EKG, troponin with any complaints of chest pain. (3) Lower lobe pneumonia: Plan: - As reported by chest CT, however patient without WBC, left shift, elevated Pro-Ernesto. - Given her complaints of shortness of breath, we will treat with Rocephin for now, (4) CHF (congestive heart failure): Plan: - Worsening shortness of breath over the past several days with evidence of congestive heart failure, pulmonary edema, bilateral pleural effusion seen on CXR and CTA chest. - Patient is diuretic branden, therefore will start on 20 mg IV twice daily. First dose given in ED. - Echo ordered as above. (5) Diabetes mellitus: Plan: - On liraglutide and metformin at home, hold these while inpatient. - Sliding scale insulin with basal/bolus. - A1c in AM. (6) Hypertension: Plan: - Continue losartan, amlodipine. (7) Hyperlipidemia: Plan: - Continue simvastatin. (8) Obesity: Plan: - Weight likely contributing to respiratory status. (9) Mixed stress and urge urinary incontinence: Plan: - Continue Detrol, Mybetriq. Plan - Admit to med telemetry. - SCDs, Lovenox for VTE PPx. - Full Code. History of Present Illness Chief Complaint: shortness of breath Primary Care Provider: Valdez Rankin MD Brenda Carballo is a 66 y/o female with a past medical history of DM2, hypertension, hyperlipidemia, GERD presenting today for shortness of breath. Patient is actually been feeling short of breath for the past 6 months, however the past several days noticed and been worse than usual with minimal activity. She had COVID-19 infection 1 month ago and recovered well from that without hospitalization. Is noticing that walking up stairs is causing her to feel quite winded and lying flat is difficult due to worsening short of breath. She has developed a dry cough over the past week, but no fever chills, chest pain/pressure, palpitations, abdominal pain, swelling, nausea, vomiting, diarrh ea, constipation. Upon presentation she is mildly hypertensive, satting 92% on room air, however desatted down to 87% upon ambulation, and further required a 10 L nonrebreather mask. She is without leukocytosis or left shift, however chest CT with evidence of patchy airspace opacities within the bilateral lower lobes posteriorly favoring pneumonia, as well as mild pulmonary edema and small bilateral lateral pleural effusions. He is also tested COVID-positive however this is likely not new as she was positive last month for COVID-19 infection. Labs also significant for troponin of 91.7, Allergies Allergy/AdvReac Type Severity Reaction Status Date / Time MICHELLE Inhibitors Allergy Intermediate EYE Verified 01/29/22 16:40 SWELLING atorvastatin AdvReac Intermediate MUSCLE Verified 01/29/22 16:40 ACHES Home Medications Medication Instructions Recorded Confirmed Type aspirin 81 mg tablet,delayed 81 mg PO QAM 02/15/18 01/29/22 History release (Mirta Low Dose Aspirin) omega-3 fatty acids-fish oil 360 2 cap PO TID 11/21/18 01/29/22 History mg-1,200 mg capsule (Fish Oil) mecobalamin (vitamin B12) 1,000 1,000 mcg sublingual DAILY #90 tabs 07/30/19 01/29/22 Rx mcg disintegrating tablet,sublingual losartan 25 mg tablet 25 mg PO QAM #90 tabs 06/29/21 01/29/22 Rx liraglutide 0.6 mg/0.1 mL (18 mg/3 1.8 mg (0.3 mL) subcut DAILY #3 08/03/21 01/29/22 Rx mL) subcutaneous pen injector Boxes (Victoza 3-Christiano) simvastatin 20 mg tablet 20 mg PO HS #90 tabs 08/03/21 01/29/22 Rx amlodipine 10 mg tablet 10 mg PO QAM #90 tabs 09/14/21 01/29/22 Rx blood-glucose meter 11/12/21 11/13/21 History pen needle, diabetic 32 gauge x #100 ea 11/12/21 11/13/21 Rx 32" (BD Ultra-Fine Nuris Pen Needle) metformin 1,000 mg tablet 1,000 mg PO BID #180 tabs 11/13/21 01/29/22 Rx cholecalciferol (vitamin D3) 125 125 mcg PO DAILY 01/29/22 01/29/22 History mcg (5,000 unit) tablet (Vitamin D3) ibuprofen 200 mg tablet 200 mg PO DIRECTED PRN Pain 01/29/22 01/29/22 History mirabegron 50 mg tablet,extended 50 mg PO DAILY 01/29/22 01/29/22 History release 24 hr (Myrbetriq) tolterodine 4 mg capsule,extended 4 mg PO DAILY 01/29/22 01/29/22 History release 24 hr Past Med/Surg History Medical History (Updated 01/29/22 @ 17:28 by Omaira Morley PA-C) Diabetes mellitus, type 2 NIDDM GERD (gastroesophageal reflux disease) OCCASIONALLY Hyperlipidemia Hypertension Overactive bladder Surgical History History of arthroscopy RIGHT KNEE History of section X3 History of colonoscopy History of tonsillectomy S/P nasal surgery Family History Daughter Asthma Sister Breast cancer Father Heart disease Mother Hypertension Hypercholesteremia Brother Hypertension Other No pertinent family history Denies family history of Ovarian cancer Prostate cancer Myocardial infarction Colorectal cancer Social History (Updated 11/13/21 @ 09:51 by SHAWN Sloan) Smoking Status: Never smoker Second Hand Exposure: No ( A CHILD); Hx Alcohol Use: No Hx Substance Use: No Preferred Language: Armenian Communication Ability: Effective Visual Impairment: No Limitations Hearing Ability: Normal Special Agent Required: No Beliefs That Will Affect Care: None marital status: Current Living Situation: Spouse current occupational status: employed Feels Safe at Home: Yes Childhood Exposure to Second-Hand Smoke: Yes (parent smoked) caffeine: Yes Seatbelt Use: always Assistive Devices: Glasses Review of Systems Review of Systems: Constitutional: No fever/chills, weakness, fatigue, myalgias, anorexia, night sweats Eyes: No diplopia, no worsening or blurred vision ENT: normal hearing, no trouble swallowing Respiratory: MONTANO, orthopnea, dry cough x1 week Cardiovascular: No chest pain, tightness or palpitations Abdomen: No pain, nausea, vomiting, diarrhea or constipation : Denies dysuria, hematuria, increased urgency/frequency, urinary retention Musculoskeletal: No joint pain, calf pain, swelling Neurologic: No weakness, numbness/tingling, or balance problems Psychiatric: No anxiety or depression Skin: No rash or itch Physical Exam Physical Exam: General: awake, alert, no apparent distress Head: Normocephalic, atraumatic ENT: PERRL, EOMI, no pharyngeal exudate, mucous membranes moist Chest: Rales at bilateral lung bases, otherwise CTA BT Cardiac: Regular rate and rhythm, no murmur, no JVD, normal peripheral pulses, good capillary refill Abdominal: NABS x 4 quadrants, soft, nontender to palpation, no rebound, guarding or tenderness Extremities: Normal inspection, no peripheral edema or erythema, calfs nontender to palpation Psych: Normal mood and affect Neuro: AAO x 3, strength intact bilaterally and rated 5/5, no motor deficits, speech is clear, no peripheral sensory deficits Skin: no rash or erythema Results & Data Results & Data ([facility]) Vital Signs (Past 12 Hours) Vital Signs Temp Pulse Pulse Resp BP BP Pulse Ox 01/29/22 16:33 81 95 01/29/22 13:15 92 01/29/22 13:15 86 22 172/107 H 92 01/29/22 13:15 01/29/22 12:02 36.1 C L 96 H 20 163/100 H 92 O2 Del Method 01/29/22 16:33 Non-rebreather 01/29/22 13:15 Room Air 01/29/22 13:15 Room Air 01/29/22 13:15 Room Air 01/29/22 12:02 Room Air Laboratory Results Abnormal lab results 01/29/22 01/29/22 01/29/22 Range/Units 12:13 12:13 12:13 RDW Std Deviation 48.7 H (36.4-46.3) fL Chloride 110 H (98-107) mmol/L BUN/Creatinine Ratio 20.5 H (10-20) Glucose 111 H (70-99(Fasting)) mg/dl Troponin I High Sens 91.7 H* (0-14) pg/ml SARS-CoV-2 (PCR) (Negative) 01/29/22 Range/Units 14:07 RDW Std Deviation (36.4-46.3) fL Chloride (98-107) mmol/L BUN/Creatinine Ratio (10-20) Glucose (70-99(Fasting)) mg/dl Troponin I High Sens (0-14) pg/ml SARS-CoV-2 (PCR) POSITIVE A* (Negative) Diagnostic Findings Chest X-Ray 01/29/22 12:07 TWO VIEW CHEST CLINICAL HISTORY: Dyspnea. FINDINGS: PA and lateral chest radiographs are compared to study dated 05/20. The heart is markedly enlarged. There is pulmonary vascular congestion. Bibasilar airspace opacities likely represent scarring/atelectasis. There is no large pleural effusion or pneumothorax. The skeletal structures are osteopenic. The bony thorax appears intact. Degenerative change is noted throughout the thoracic spine. IMPRESSION: 1. Cardiomegaly with evidence of congestive failure. 2. Bibasilar opacities likely represent scarring/atelectasis. Correlate clinically for evidence of a superimposed infectious/inflammatory pneumonitis ACT 112: Negative or not required by law. Electronically signed by: Reuben Pappas M.D. 01/29/2022 12:49 PM Chest CTA 01/29/22 14:27 CHEST CTA for PULMONARY ARTERIES CT DOSE: 1056.94 mGy.cm HISTORY: PE, shortness of breath, recent covid TECHNIQUE: Multiaxial CT images of the chest were performed following the intravenous administration of contrast to evaluate the pulmonary arteries. Maximal intensity projection images were also obtained. A dose lowering technique was utilized adhering to the principles of ALARA. COMPARISON STUDY: Chest 01/29/2022. FINDINGS: Retrograde opacification of contrast into the hepatic veins. Otherwise, the visualized liver and spleen are unremarkable. Normal thyroid gland. Normal caliber esophagus. The heart is moderately enlarged. No pericardial effusion. There are small bilateral pleural effusions. Normal caliber thoracic aorta. The thoracic aorta is not well opacified. However, there is no definite evidence for an aortic dissection. There is an aberrant right subclavian artery. There are few mildly enlarged mediastinal lymph nodes measuring up to 12 mm in short axis diameter. No significant hilar lymphadenopathy. No suspicious lytic or blastic osseous lesions. Nondiagnostic evaluation of the bilateral lower lobe subsegmental pulmonary arteries due to the motion artifact. Otherwise, the remaining pulmonary arteries show no filling defects to suggest a pulmonary embolus. No pneumothorax. The central airways are patent. Mild respiratory motion artifact is noted. There is near diffuse interlobular septal thickening consistent with mild pulmonary edema. There are also patchy airspace opacities within the bilateral lower lobes posteriorly. This is greater than expected for atelectasis and therefore favors a pneumonia. IMPRESSION: 1. No evidence for pulmonary embolus with limitations as described above. 2. Cardiomegaly with mild pulmonary edema and small bilateral pleural effusions. 3. Patchy airspace opacities within the bilateral lower lobes posteriorly. This favors a pneumonia. 4. A few borderline-enlarged mediastinal lymph nodes which may be reactive. ACT 112: Negative or not required by law. Electronically signed by: Panfilo Anderson M.D. 01/29/2022 4:29 PM Code Status & VTE Plan Code Status Full Code. Supervising Physician Co-Signing Physician Notes Patient seen and examined, chart reviewed, case discussed with Omaira Morley PA-C and I agree with the assessment and plan as above except as otherwise noted Labs and images reviewed 6 months of shortness of breath which feels acutely worse in the last few days. Patient recently diagnosed with COVID. Satting greater than 90% on room air, did desat with ambulation initially. Patient with pulmonary edema and bilateral pneumonia on exam troponin elevated on admission without ST segment changes, suspected for demand ischemia. She is seen at bedside with her . She reports for several weeks she has had progressively worsening breathing and orthopnea. Significantly worsened in the last week and with a cough. She notes that she did recently have deli meats and red lobster and some high salt load "I could definitely taste the salt in the food". Denies fever/chills/sweats. S uspect patient is with an element of new heart failure, echo pending to qualify EF. CT does show potential superimposed pneumonia. We will continue Rocephin for, treat with Lasix twice daily. She has had no chest pain at any point, will trend troponins suspect elevated due to demand and echo as noted. Pleasant, cooperative, no acute distress at bedside. Lungs are with slight rales in the bases. Heart rate is regular. PG Care Time/CCT Total # of Minutes Spent Total Time Spent with Patient: Total time spent is greater than 50% in coordination of care (as documented) at patient's floor/unit and/or counseling patient: Coding Level of Care Code 11520 Initial Inpt Care Lvl 3 Diagnoses Shortness of breath R06.02 Elevated troponin I level R77.8 Lower lobe pneumonia J18.9 Laterality: bilateral Pneumonia type: due to unspecified organism CHF (congestive heart failure) I50.9 Diabetes mellitus E11.9 Diabetes mellitus complication status: without complication Diabetes mellitus mcfp insulin use: without mcfp use Diabetes mellitus type: type 2 Hypertension I10 Hypertension type: unspecified Hyperlipidemia E78.5 Obesity E66.01; Z68.43 Body mass index: BMI 50.0-59.9 Obesity classification: adult class 3 (BMI >= 40) Obesity type: due to excess calories Serious obesity comorbidity presence: with serious comorbidity Mixed stress and urge urinary incontinence N39.46 (1) Diabetes mellitus Diabetes mellitus complication status: without complication Diabetes mellitus lobsterman insulin use: without lobsterman use Diabetes mellitus type: type 2 Qualified Code(s): E11.9 - Type 2 diabetes mellitus without complications (2) Lower lobe pneumonia Laterality: bilateral Pneumonia type: due to unspecified organism Qualified Code(s): J18.9 - Pneumonia, unspecified organism (3) Hypertension Hypertension type: unspecified Qualified Code(s): I10 - Essential (primary) hypertension (4) Obesity Body mass index: BMI 50.0-59.9 Obesity classification: adult class 3 (BMI >= 40) Obesity type: due to excess calories Serious obesity comorbidity presence: with serious comorbidity Qualified Code(s): E66.01 - Morbid (severe) obesity due to excess calories; Z68.43 - Body mass index [BMI] 50.0-59.9, adult
[2022-01-29] MEDS ORDERED: ACETAMINOPHEN 325 MG TAB PO PRN (20:03)
[2022-01-29] MEDS ORDERED: ONDANSETRON INJ 2 MG/ML 2 ML VIAL IV PRN (20:03)
[2022-01-29] MEDS ORDERED: ALUMINUM/MAGNESIUM SUSP 30 ML UDC PO PRN (20:03)
[2022-01-29] MEDS ORDERED: CARBOHYDRATES FOR HYPOGLYCEMIA PO PRN (20:03)
[2022-01-29] MEDS ORDERED: DEXTROSE 50% 50 ML SYRINGE IV PRN (20:03)
[2022-01-29] MEDS ORDERED: IBUPROFEN 200 MG TAB PO PRN (20:03)
[2022-01-29] MEDS ORDERED: POLYETHYLENE (MIRALAX) 17 GM PACK PO PRN (20:03)
[2022-01-29] MEDS ORDERED: GLUCAGON FOR INJ 1 MG VIAL SQ PRN (20:03)
[2022-01-29] MEDS ORDERED: GLUCOSE 40% GEL 15 GM TUBE PO PRN (20:03)
[2022-01-29] MEDS ORDERED: GLUCOSE 10 TAB/TUBE PO PRN (20:03)
[2022-01-29] MEDS: ALBUT/IPRATROP 3MG/0.5MG NEB 3 ML VIAL NEB SCH ×2 (21:55→21:59)
[2022-01-30] MEDS: LANTUS PER UNIT CHARGE SQ SCH ×3 (01:23→21:33)
[2022-01-30] MEDS: ENOXAPARIN INJ 40 MG/0.4 ML SYR SQ SCH ×2 (01:23→21:37)
[2022-01-30] MEDS: INSULIN ASPART PER UNIT SC SCH ×5 (01:24→21:33)
[2022-01-30] MEDS: SIMVASTATIN 20 MG TAB PO SCH ×2 (01:25→21:34)
[2022-01-30 02:33] LABS: Basophils # (auto) 0.03 K/uL (0-0.2); Basophils % (auto) 0.4 %; Eosinophils # (auto) 0.37 K/uL (0-0.50); Eosinophils % (auto) 5.4 %; Hemoglobin 12.2 g/dl (12.0-16.0); Immature Granulocytes # (auto) 0.01 K/uL (0.00-0.02); Immature Granulocytes % (auto) 0.1 %; Lymphocytes # (auto) 1.94 K/uL (1.2-3.4); Lymphocytes % (auto) 28.2 %; Mean Corpuscular Volume 97.1 fL (80.0-100.0); Mean Platelet Volume 10.4 fL (9.4-12.3); Monocytes # (auto) 0.49 K/uL (0.24-0.82); Monocytes % (auto) 7.1 %; Neutrophils # (auto) 4.05 K/uL (1.4-6.5); Neutrophils % (auto) 58.8 %; Platelet Count 190 K/uL (130-400); RDW Coefficient of Variation 13.6 % (11.5-14.5); RDW Standard Deviation 48.5 fL (36.4-46.3); Red Blood Count 3.81 M/uL (3.93-5.22); White Blood Count 6.89 K/ul (4.8-10.8)
[2022-01-30 02:50] LABS: BUN Creatinine Ratio 17.4 (10-20); Calcium 8.3 mg/dl (8.5-10.1); Creatinine Clr Calc Pharmacy 85.7 ml/min; Est GFR (African American) 76.3 ml/min; Est GFR (Non-African American) 65.8 ml/min; Magnesium 1.7 mg/dl (1.7-2.4); Potassium 3.6 mmol/L (3.5-5.1)
[2022-01-30] MEDS: ALBUT/IPRATROP 3MG/0.5MG NEB 3 ML VIAL NEB SCH ×3 (04:01→11:34)
[2022-01-30] MEDS ORDERED: FLUARIX QUADRIVALENT 0.5 ML SYR IM ONE (05:59)
[2022-01-30 07:27] LABS: Estimated Average Glucose 126 mg/dl
[2022-01-30] MEDS ORDERED: AZITHROMYCIN 250 MG TAB PO ONE (07:32)
[2022-01-30] MEDS: TOLTERODINE TARTRATE LA 4 MG CAPCR PO SCH (08:46)
[2022-01-30] MEDS: CYANOCOBALAMIN (B-12) 500 MCG TABLET PO SCH (08:46)
[2022-01-30] MEDS: MIRABEGRON ER 25 MG TAB PO SCH (08:47)
[2022-01-30] MEDS: CHOLECALCIFEROL 5,000 UNITS 125 MCG TAB PO SCH (08:47)
[2022-01-30] MEDS: FUROSEMIDE INJ 20 MG/2 ML VIAL IV SCH ×2 (08:47→17:12)
[2022-01-30] MEDS: ASPIRIN 81 MG ECTAB PO SCH (08:47)
[2022-01-30] MEDS ORDERED: LOSARTAN POTASSIUM 25 MG TAB PO SCH (09:00)
[2022-01-30] MEDS ORDERED: amLODIPine BESYLATE 5 MG TAB PO SCH (09:00)
--- NOTE | 2022-01-30 10:21 | XCELERA ---
[id number]
--- NOTE | 2022-01-30 11:22 | Cardiology Consultation ---
Date of Consultation January 30, 2022 Assessment & Plan (1) New onset of congestive heart failure: (2) HFrEF (heart failure with reduced ejection fraction): (3) Cardiomyopathy: (4) Elevated troponin I level: (5) Diabetes mellitus: (6) Hypertension: (7) Morbid obesity: Plan 66-year-old woman with no prior cardiac history presents with subacute CHF symptoms and is found to have a severe cardiomyopathy on echocardiogram (EF 15 to 20% with dilated left ventricle and global hypokinesis) as well as severe mitral regurgitation. The fact that she is fairly well compensated and the degree of left ventricular dilatation suggests the pathology has been present for some time before her current admission. Doubt COVID plays a significant role, as her symptoms began before and did not markedly increased at the time of her mild to moderately symptomatic COVID infection which did not require hospitalization. She does have diabetes mellitus, but only for the past 3 to 4 years and with only a minimally elevated hemoglobin A1c (6.0%), so the likelihood of underlying obstructive coronary artery disease as an etiology is not particularly high, but should be excluded with cardiac catheterization (which will be arranged for Tuesday). Mild/flat troponin curve elevation is nonspecific, likely due to supply/demand rather than any acute process. Recommend guideline based therapy for heart failure with reduced ejection fraction, including the followin. Continue furosemide 20 mg IV twice daily, she is having a good diuretic response to this. On discharge, she should be placed on a weight-based regimen. 2. Patient instructed in the importance of a low-salt/low-sodium diet. 3. Initiate low-dose Entresto with upward titration as outpatient. 4. Agree with discontinuation of amlodipine. 5. Initiate carvedilol 3.125 mg twice daily, can begin titration as inpatient and continue as outpatient. 6. Would add spironolactone 25 mg daily for potassium sparing and neuroendocrine benefits. 7. Will consider SGLT2 inhibitor (Jardiance) after she has achieved volume equilibrium. 8. Follow-up in heart failure clinic as well as with me upon discharge. Will check on patient tomorrow as well and offer further recommendations based upon her clinical course and exam findings. History of Present Illness Reason for Consultation: New onset heart failure Requesting Physician: Jayce Arnold MD Attending Physician: Jayce Arnold MD History of Present Illness 66-year-old woman with no known cardiac history admitted 01/29/2022 with progressive dyspnea on exertion and found on echocardiogram today to have severely reduced left ventricular systolic function (EF 15-20%) with severely dilated left ventricle and global hypokinesis. She stopped working at [employer] about 2 years ago with the onset of the pandemic and has been fairly isolated and sedentary since then. This past summer she noted that she became dyspneic walking the dog, but she blamed it on deconditioning. 1 month ago she attended a family gathering and contracted COVID, her symptoms were fairly minor and she did not require hospitalization. She did not note a marked increase in her dyspnea on exertion at that time. The week prior to admission she developed a nonproductive cough and some degree of orthopnea as well as dyspnea on minimal exertion. She notes intermittent leg edema, worse after high sodium meals (such as pizza) but has not had more than minor leg edema. She has not noted chest pain or anginal type symptoms or any infectious symptoms. On admission she was noted to have oxygen desaturation with ambulation, chest x- ray and CT showing marked cardiomegaly and pulmonary edema with possible superimposed pneumonia. Her COVID test remains positive and her troponin was elevated at 91.7. She was given furosemide 20 mg IV and has been diuresing well. At the time of my evaluation, she was comfortable at rest and noted no dyspnea, lightheadedness, or chest discomfort. She had no significant leg edema. Allergies Allergy/AdvReac Type Severity Reaction Status Date / Time MICHELLE Inhibitors Allergy Intermediate EYE Verified 01/29/22 16:40 SWELLING atorvastatin AdvReac Intermediate MUSCLE Verified 01/29/22 16:40 ACHES Home Medications Medication Instructions Recorded Confirmed Type aspirin 81 mg tablet,delayed 81 mg PO QAM 02/15/18 01/29/22 History release (Mirta Low Dose Aspirin) omega-3 fatty acids-fish oil 360 2 cap PO TID 11/21/18 01/29/22 History mg-1,200 mg capsule (Fish Oil) mecobalamin (vitamin B12) 1,000 1,000 mcg sublingual DAILY #90 tabs 07/30/19 01/29/22 Rx mcg disintegrating tablet,sublingual losartan 25 mg tablet 25 mg PO QAM #90 tabs 06/29/21 01/29/22 Rx liraglutide 0.6 mg/0.1 mL (18 mg/3 1.8 mg (0.3 mL) subcut DAILY #3 08/03/21 01/29/22 Rx mL) subcutaneous pen injector Boxes (Victoza 3-Christiano) simvastatin 20 mg tablet 20 mg PO HS #90 tabs 08/03/21 01/29/22 Rx amlodipine 10 mg tablet 10 mg PO QAM #90 tabs 09/14/21 01/29/22 Rx blood-glucose meter 11/12/21 11/13/21 History pen needle, diabetic 32 gauge x #100 ea 11/12/21 11/13/21 Rx 5/32" (BD Ultra-Fine Nuris Pen Needle) metformin 1,000 mg tablet 1,000 mg PO BID #180 tabs 11/13/21 01/29/22 Rx cholecalciferol (vitamin D3) 125 125 mcg PO DAILY 01/29/22 01/29/22 History mcg (5,000 unit) tablet (Vitamin D3) ibuprofen 200 mg tablet 200 mg PO DIRECTED PRN Pain 01/29/22 01/29/22 History mirabegron 50 mg tablet,extended 50 mg PO DAILY 01/29/22 01/29/22 History release 24 hr (Myrbetriq) tolterodine 4 mg capsule,extended 4 mg PO DAILY 01/29/22 01/29/22 History release 24 hr Patient History Medical History (Updated 01/30/22 @ 11:36 by Capo Hollins MD) Diabetes mellitus, type 2 NIDDM GERD (gastroesophageal reflux disease) OCCASIONALLY Hyperlipidemia Hypertension Overactive bladder Surgical History History of arthroscopy RIGHT KNEE History of section X3 History of colonoscopy History of tonsillectomy S/P nasal surgery Family History Daughter Asthma Sister Breast cancer Father Heart disease Mother Hypertension Hypercholesteremia Brother Hypertension Other No pertinent family history Denies family history of Ovarian cancer Prostate cancer Myocardial infarction Colorectal cancer Social History Smoking Status: Never smoker Second Hand Exposure: No ( A CHILD); Hx Alcohol Use: No Hx Substance Use: No Preferred Language: Yakut Communication Ability: Effective Visual Impairment: No Limitations Hearing Ability: Normal 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 BP normotensive at 116/73 mmHg. Pulse 76 bpm and regular. Respirations 20 but unlabored. Skin: no ecchymoses or generalized lesions. HEENT: unremarkable. Neck: Difficult neck exam due to habitus, however jugular venous pulse elevated at least one third of the way to the angle of the jaw, no carotid bruits. Lungs: Mildly decreased breath sounds with few basilar crackles (right greater than left), no wheezing or rhonchi. No accessory muscle use. Cardiac: regular rhythm, faint heart tones secondary to body habitus, grossly normal S1 and S2, questionable soft systolic murmur in the axilla but no obvious pathologic murmurs. Abdomen: benign. Extremities: Trace pretibial edema, pulses intact, good capillary refill. Neurologic: normal affect and conversation, nonfocal. Results & Data ([facility]) Vital Signs (Past 12 Hours) Vital Signs Temp Pulse Pulse Resp BP Pulse Ox O2 Del Method 01/30/22 07:30 Nasal Cannula 01/30/22 07:44 77 01/30/22 07:26 97.9 F 83 20 116/73 92 High Flow Nasal Cannula 01/30/22 03:00 98.6 F 80 20 136/64 94 Nasal Cannula O2 Flow Rate 01/30/22 07:30 6 01/30/22 07:44 01/30/22 07:26 5 01/30/22 03:00 6 Laboratory Results Normal CBC. Normal electrolytes, BUN 16, creatinine 0.9. Troponin series 91, 99, 114, 99 (elevated but flat pattern) Hemoglobin A1c 6.0% COVID test positive (initially + 1-month ago). Diagnostic Findings ECG showed sinus rhythm with left atrial enlargement and anterolateral T wave inversions. Compared with 04/27/2016, T wave inversion is new. Echocardiogram obtained today showed severely dilated left ventricle (greater than 7 cm) with EF 15 to 20%, severe global hypokinesis with grade 2 diastolic dysfunction, normal RV size and systolic function, severe mitral regurgitation with moderate pulmonary hypertension. Chest x-ray showed cardiomegaly with evidence of CHF and possible pneumonia. CT similar with no evidence of pulmonary embolism. 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
[2022-01-30] MEDS: carvediloL 3.125 MG TAB PO SCH ×2 (11:58→21:34)
[2022-01-30] MEDS: SPIRONOLACTONE 12.5 MG TAB PO SCH (11:58)
--- NOTE | 2022-01-30 12:05 | Hospitalist Progress Note ---
Date of Service January 30, 2022 Assessment & Plan (1) HFrEF (heart failure with reduced ejection fraction): Plan: Continue Lasix 20 mg IV twice daily -aim for 1 to 1.5 L net negative balance per day. Current output not being recorded therefore not accurate for today. Start spironolactone 25 mg p.o. daily Strict I&Os, daily weights (2) Cardiomyopathy: Plan: Switch losartan for Entresto starting tomorrow. Start carvedilol 3.125 mg p.o. twice daily Appears to be new onset although you may have been going on for some time without realizing. Given her diabetes and severe cardiomyopathy agree with cardiology and recommend cardiac catheterization this admission -planning on Tuesday. No current diagnosed coronary artery disease therefore continue on her usual simvastatin. Prior LDL 71. If coronary artery disease is confirmed on cardiac cath consider increasing this to high-intensity statin. Continue aspirin 81 mg p.o. daily for possible coronary artery disease. (3) New onset of congestive heart failure: Plan: As above (4) Hypoxia: Plan: Suspect secondary to pulmonary edema due to heart failure. Aim O2 sats greater than 94%. (5) Elevated troponin I level: Plan: - Suspect demand ischemia in the setting of severe cardiomyopathy and heart failure. Planning on cardiac catheterization on Tuesday (6) Lower lobe pneumonia: Plan: Possible diagnosis. Suspect more likely atelectasis. (7) Diabetes mellitus: Plan: - On liraglutide and metformin at home, hold these while inpatient. - Given current glucose levels will reduce Lantus to 5 units twice daily. Novolog: --Goal BSG Range: Low 110 mg/dL, High 140 mg/dL --Correction Factor: 45 mg/dL/unit --Carbohydrate ratio = 15 g/unit --BSGs ACHS if eating, q6h if npo HbA1c 6.0. Given heart failure consider SGLT2 inhibitor as an outpatient. (8) Hypertension: Plan: Discontinue losartan and amlodipine in favor of more specific cardiomyopathy medications of Entresto and carvedilol as above. Diuretics with Lasix and spironolactone as above. (9) Hyperlipidemia: Plan: - Continue simvastatin. (10) Mixed stress and urge urinary incontinence: Plan: - Continue Detrol, Mybetriq. (11) Morbid obesity: Plan: Possibly some degree of obesity hypoventilation. Consider obstructive sleep apnea sleep study as an outpatient. Plan VTE Prophylaxis - SCDs, Lovenox for VTE PPx. Diet -type 2 diabetes, heart healthy, low-sodium, fluid restrict to 1500 mL Disposition -continued admission to [facility] telemetry Admission and Anticipated Discharge Date Admission Date: January 29, 2022 Subjective Mild improvement in shortness of breath since admission. No significant change with duo nebs. Leg swelling at baseline. No episode of chest pain within the last couple of months. She does report this summer also having some shortness of breath on exertion but was made much worse with COVID 1 month ago. Review of Systems Review of Systems: All systems reviewed & are unremarkable except as noted in Subjective Physical Exam Constitutional: WD/WN, vitals as above Respiratory: normal respiratory effort Auscultation: + crackles (Bibasal); breath sounds present, no diminished lung sounds, no rales, no rhonchi and no wheezes Cardiovascular: Rate/Rhythm: regular rate and regular rhythm Heart Sounds: no murmur Extremities: + pedal edema (Trace pretibial) Gastrointestinal (Abdomen): normal bowel sounds, soft, nontender, no hepatosplenomegaly Psychiatric: A+Ox3, euthymic affect Results & Data Results & Data ([facility]) Vital Signs (Past 12 Hours) Vital Signs Temp Pulse Pulse Resp BP Pulse Ox O2 Del Method 01/30/22 11:28 36.9 C 80 20 125/85 93 High Flow Nasal Cannula 01/30/22 07:30 Nasal Cannula 01/30/22 07:44 77 01/30/22 07:26 36.6 C 83 20 116/73 92 High Flow Nasal Cannula 01/30/22 03:00 37 C 80 20 136/64 94 Nasal Cannula O2 Flow Rate 01/30/22 11:28 5 01/30/22 07:30 6 01/30/22 07:44 01/30/22 07:26 5 01/30/22 03:00 6 PG Care Time/CCT Total # of Minutes Spent Total Time Spent with Patient: Total time spent is greater than 50% in coordination of care (as documented) at patient's floor/unit and/or counseling patient: Coding Level of Care Code 39073 Subseq Hosp Care Lvl 3 Diagnoses HFrEF (heart failure with reduced ejection fraction) I50.20 Cardiomyopathy I42.9 New onset of congestive heart failure I50.9 Hypoxia R09.02 Elevated troponin I level R77.8 Lower lobe pneumonia J18.9 Laterality: bilateral Pneumonia type: due to unspecified organism Diabetes mellitus E11.9 Diabetes mellitus complication status: without complication Diabetes mellitus medical terminologist insulin use: without senior living use Diabetes mellitus type: type 2 Hypertension I10 Hypertension type: unspecified Hyperlipidemia E78.5 Mixed stress and urge urinary incontinence N39.46 Morbid obesity E66.01 (1) Diabetes mellitus Diabetes mellitus complication status: without complication Diabetes mellitus senior living insulin use: without senior living use Diabetes mellitus type: type 2 Qualified Code(s): E11.9 - Type 2 diabetes mellitus without complications (2) Lower lobe pneumonia Laterality: bilateral Pneumonia type: due to unspecified organism Qualified Code(s): J18.9 - Pneumonia, unspecified organism (3) Hypertension Hypertension type: unspecified Qualified Code(s): I10 - Essential (primary) hypertension
[2022-01-30] MEDS: cefTRIAXone SODIUM 2,000 MG in DEXTROSE 5% 50 ML IV SCH (17:14)
[2022-01-31 08:10] LABS: BUN Creatinine Ratio 19.4 (10-20); Creatinine Clr Calc Pharmacy 83.3 ml/min; Est GFR (African American) 75.3 ml/min; Est GFR (Non-African American) 64.9 ml/min; Potassium 4.2 mmol/L (3.5-5.1)
[2022-01-31] MEDS: INSULIN ASPART PER UNIT SC SCH ×4 (08:12→20:37)
[2022-01-31] MEDS: AZITHROMYCIN 250 MG TAB PO SCH (08:13)
[2022-01-31] MEDS: SPIRONOLACTONE 12.5 MG TAB PO SCH (08:13)
[2022-01-31] MEDS: FUROSEMIDE INJ 20 MG/2 ML VIAL IV SCH ×2 (08:13→17:25)
[2022-01-31] MEDS: TOLTERODINE TARTRATE LA 4 MG CAPCR PO SCH (08:13)
[2022-01-31] MEDS: MIRABEGRON ER 25 MG TAB PO SCH (08:13)
[2022-01-31] MEDS: VALSARTAN/SACUBITRIL 26/24MG TAB PO SCH ×2 (08:13→20:50)
[2022-01-31] MEDS: carvediloL 3.125 MG TAB PO SCH ×2 (08:13→20:50)
[2022-01-31] MEDS: CYANOCOBALAMIN (B-12) 500 MCG TABLET PO SCH (08:14)
[2022-01-31] MEDS: CHOLECALCIFEROL 5,000 UNITS 125 MCG TAB PO SCH (08:14)
[2022-01-31] MEDS: ASPIRIN 81 MG ECTAB PO SCH (08:14)
[2022-01-31] MEDS: LANTUS PER UNIT CHARGE SQ SCH ×2 (08:16→20:38)
--- NOTE | 2022-01-31 09:13 | Cardiology Progress Note ---
Date of Service January 31, 2022 Assessment & Plan (1) New onset of congestive heart failure: (2) HFrEF (heart failure with reduced ejection fraction): (3) Cardiomyopathy: (4) Elevated troponin I level: (5) Diabetes mellitus: (6) Hypertension: (7) Morbid obesity: Plan She is doing well clinically with apparently good diuresis (poorly documented) and no symptoms at rest. She still appears mildly hypervolemic, continue IV diuretic, if more careful I/O's do not document significant diuresis could increase furosemide to 40 mg IV twice daily given her stable/favorable renal function and a desire for more aggressive diuresis while she is inpatient. Would discharge on a weight-based diuretic regimen. She is tolerating addition of various vasoactive medications (Entresto, carvedilol, spironolactone) with a favorable hemodynamic response and no side effects. No further medication changes necessary today as she has favorable hemodynamics Recommend proceeding to right and left heart cardiac catheterization tomorrow to assess central hemodynamics and exclude obstructive coronary artery disease given her risk factors (hypertension, diabetes). I will be out tomorrow, will ask the [facility] supervisor evaporator performing the catheterization to offer any further recommendations tomorrow. If she has no obstructive coronary disease requiring intervention and is doing well clinically, she could potentially be discharged home later tomorrow with follow-up in heart failure clinic in 1 to 2 weeks, with further optimization of her vasoactive regimen and possible addition of SGLT2 inhibitor (Jardiance) at that time. Admission and Anticipated Discharge Date Admission Date: January 29, 2022 Subjective Patient is currently comfortable. No dyspnea at rest. No chest pain at any time. No lightheadedness. She notes significant urine output, but degree of diuresis is uncertain given documentation (weight down 8 pounds but I/O + 1880). Hemodynamics are favorable. Physical Exam Physical Exam: Appears comfortable. BP low normal. Pulse 78 bpm and regular. Respirations 20 but unlabored. Skin: no ecchymoses or generalized lesions. HEENT: unremarkable. Neck: Difficult neck exam due to habitus, however jugular venous pulse elevated at least one third of the way to the angle of the jaw, no carotid bruits. Lungs: Mildly decreased breath sounds with rare basilar crackles, no wheezing or rhonchi. No accessory muscle use. Cardiac: regular rhythm, faint heart tones secondary to body habitus, grossly normal S1 and S2, questionable soft systolic murmur in the axilla but no obvious pathologic murmurs. Abdomen: benign. Extremities: No pretibial edema. Neurologic: normal affect and conversation, nonfocal. Results & Data ([facility]) Vital Signs (Past 12 Hours) Vital Signs Temp Pulse Pulse Resp BP Pulse Ox O2 Del Method 01/31/22 07:27 97.9 F 78 20 101/69 96 Nasal Cannula 01/31/22 03:15 98.1 F 75 18 103/65 98 Nasal Cannula 01/31/22 01:01 75 01/30/22 22:05 98.1 F 70 20 108/61 95 Nasal Cannula 01/30/22 23:10 Nasal Cannula O2 Flow Rate 01/31/22 07:27 5 01/31/22 03:15 5 01/31/22 01:01 01/30/22 22:05 5 01/30/22 23:10 5 Laboratory Results Normal electrolytes, BUN 18, creatinine 0.93. 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
--- NOTE | 2022-01-31 11:45 | Hospitalist Progress Note ---
Date of Service January 31, 2022 Assessment & Plan (1) HFrEF (heart failure with reduced ejection fraction): Plan: Continue Lasix 20 mg IV twice daily - aim for 1 to 1.5 L net negative balance per day. Start spironolactone 25 mg p.o. daily Strict I&Os, daily weights Fluid restrict 1500ml (2) Cardiomyopathy: Plan: Tolerating Entresto and carvedilol Continue Entresto 26/24 mg p.o. twice daily Continue carvedilol 3.125 mg p.o. twice daily Planning on cardiac catheterization tomorrow Continue simvastatin LDL 71. If coronary artery disease is confirmed on cardiac cath consider increasing this to high-intensity statin. Continue aspirin 81 mg p.o. daily for possible coronary artery disease. (3) New onset of congestive heart failure: Plan: As above (4) Hypoxia: Plan: Suspect secondary to pulmonary edema due to heart failure. Aim O2 sats greater than 94%. (5) Elevated troponin I level: Plan: - Suspect demand ischemia in the setting of severe cardiomyopathy and heart failure. Planning on cardiac catheterization on Tuesday (6) Lower lobe pneumonia: Plan: Possible diagnosis. Suspect more likely atelectasis. Continue ceftriaxone and azithromycin (7) Diabetes mellitus: Plan: - On liraglutide and metformin at home, hold these while inpatient. - Given current glucose levels will reduce Lantus to 5 units twice daily. Novolog: --Goal BSG Range: Low 110 mg/dL, High 140 mg/dL --Correction Factor: 45 mg/dL/unit --Carbohydrate ratio = 15 g/unit --BSGs ACHS if eating, q6h if npo HbA1c 6.0. Given heart failure consider SGLT2 inhibitor as an outpatient. (8) Hypertension: Plan: Discontinue losartan and amlodipine in favor of more specific cardiomyopathy medications of Entresto and carvedilol as above. Diuretics with Lasix and spironolactone as above. (9) Hyperlipidemia: Plan: - Continue simvastatin. (10) Mixed stress and urge urinary incontinence: Plan: - Continue Detrol, Mybetriq. (11) Morbid obesity: Plan: Possibly some degree of obesity hypoventilation. Consider obstructive sleep apnea sleep study as an outpatient. Plan VTE Prophylaxis - SCDs, Lovenox for VTE PPx. Diet -type 2 diabetes, heart healthy, low-sodium, fluid restrict to 1500 mL Disposition -continued admission to [facility] telemetry Admission and Anticipated Discharge Date Admission Date: January 29, 2022 Subjective No chest pain. Shortness of breath improving. I&Os not accurate as were not being measured yesterday morning. Intake > 1500ml despite fluid restriction. Review of Systems Review of Systems: All systems reviewed & are unremarkable except as noted in Subjective Physical Exam Constitutional: WD/WN, vitals as above Respiratory: normal respiratory effort Auscultation: + crackles (Bibasal); breath sounds present, no diminished lung sounds, no rales, no rhonchi and no wheezes Cardiovascular: Rate/Rhythm: regular rate and regular rhythm Heart Sounds: no murmur Extremities: + pedal edema (Trace pretibial) Gastrointestinal (Abdomen): normal bowel sounds, soft, nontender, no hepatosplenomegaly Psychiatric: A+Ox3, euthymic affect Results & Data Results & Data ([facility]) Vital Signs (Past 12 Hours) Vital Signs Temp Pulse Pulse Resp BP Pulse Ox O2 Del Method 01/31/22 10:53 36.6 C 68 18 103/53 L 97 Nasal Cannula 01/31/22 08:15 Nasal Cannula 01/31/22 07:27 36.6 C 78 20 101/69 96 Nasal Cannula 01/31/22 03:15 36.7 C 75 18 103/65 98 Nasal Cannula 01/31/22 01:01 75 O2 Flow Rate 01/31/22 10:53 5 01/31/22 08:15 4 01/31/22 07:27 5 01/31/22 03:15 5 01/31/22 01:01 PG Care Time/CCT Total # of Minutes Spent Total Time Spent with Patient: Total time spent is greater than 50% in coordination of care (as documented) at patient's floor/unit and/or counseling patient: Coding Level of Care Code 41211 Subseq Hosp Care Lvl 2 Diagnoses HFrEF (heart failure with reduced ejection fraction) I50.20 Cardiomyopathy I42.9 New onset of congestive heart failure I50.9 Hypoxia R09.02 Elevated troponin I level R77.8 Lower lobe pneumonia J18.9 Laterality: bilateral Pneumonia type: due to unspecified organism Diabetes mellitus E11.9 Diabetes mellitus complication status: without complication Diabetes mellitus alf insulin use: without intermediate accountant use Diabetes mellitus type: type 2 Hypertension I10 Hypertension type: unspecified Hyperlipidemia E78.5 Mixed stress and urge urinary incontinence N39.46 Morbid obesity E66.01 (1) Diabetes mellitus Diabetes mellitus complication status: without complication Diabetes mellitus alf insulin use: without intermediate accountant use Diabetes mellitus type: type 2 Qualified Code(s): E11.9 - Type 2 diabetes mellitus without complications (2) Lower lobe pneumonia Laterality: bilateral Pneumonia type: due to unspecified organism Qualified Code(s): J18.9 - Pneumonia, unspecified organism (3) Hypertension Hypertension type: unspecified Qualified Code(s): I10 - Essential (primary) hypertension
[2022-01-31] MEDS: cefTRIAXone SODIUM 2,000 MG in DEXTROSE 5% 50 ML IV SCH (17:25)
[2022-01-31] MEDS: SIMVASTATIN 20 MG TAB PO SCH (20:50)
[2022-01-31] MEDS: ENOXAPARIN INJ 40 MG/0.4 ML SYR SQ SCH (20:50)
[2022-02-01] MEDS: VALSARTAN/SACUBITRIL 26/24MG TAB PO SCH ×2 (07:34→20:15)
[2022-02-01] MEDS: TOLTERODINE TARTRATE LA 4 MG CAPCR PO SCH (07:35)
[2022-02-01] MEDS: ASPIRIN 81 MG ECTAB PO SCH (07:35)
[2022-02-01] MEDS: MIRABEGRON ER 25 MG TAB PO SCH (07:35)
[2022-02-01] MEDS: carvediloL 3.125 MG TAB PO SCH (07:35)
[2022-02-01] MEDS: CYANOCOBALAMIN (B-12) 500 MCG TABLET PO SCH (07:35)
[2022-02-01] MEDS: CHOLECALCIFEROL 5,000 UNITS 125 MCG TAB PO SCH (07:35)
[2022-02-01] MEDS: SPIRONOLACTONE 12.5 MG TAB PO SCH (07:35)
[2022-02-01] MEDS: AZITHROMYCIN 250 MG TAB PO SCH (07:35)
[2022-02-01] MEDS: FUROSEMIDE INJ 20 MG/2 ML VIAL IV SCH ×2 (07:36→17:00)
[2022-02-01] MEDS: INSULIN ASPART PER UNIT SC SCH ×4 (08:13→20:30)
--- NOTE | 2022-02-01 08:24 | Pre Anesthesia Assessment ---
Date of Service February 01, 2022 Pre Sedation Assessment Vital Signs Temp Pulse Pulse Resp BP BP Pulse Ox 02/01/22 07:44 96 02/01/22 07:27 36.5 C 60 18 105/61 95 02/01/22 02:15 36.5 C 72 16 117/65 97 01/31/22 22:00 36.6 C 72 18 114/67 95 01/31/22 22:06 74 01/31/22 21:00 01/31/22 19:15 36.6 C 73 18 105/76 97 01/31/22 16:00 75 01/31/22 15:01 36.9 C 67 18 105/59 L 96 01/31/22 10:53 36.6 C 68 18 103/53 L 97 O2 Del Method O2 Flow Rate 02/01/22 07:44 Room Air 02/01/22 07:27 Nasal Cannula 5 02/01/22 02:15 Nasal Cannula 5 01/31/22 22:00 Room Air 01/31/22 22:06 01/31/22 21:00 Nasal Cannula 01/31/22 19:15 Nasal Cannula 5 01/31/22 16:00 01/31/22 15:01 Nasal Cannula 5 01/31/22 10:53 Nasal Cannula 5 Cardiovascular RRR, no murmur, no edema + JVD Respiratory normal respiratory effort, lungs clear to auscultation Pre-Sedation Airway Assessment Smoking Status: Never smoker Mallampati 3 ASA 3 Notes The planned sedation has been discussed with the patient. Informed Consent was obtained. I have identified the patient, determined the appropriateness of sedation and have assessed the patient immediately prior to the procedure. All medicine(s) and interventions are by my order.
[2022-02-01] MEDS: LANTUS PER UNIT CHARGE SQ SCH ×2 (08:32→20:20)
[2022-02-01] MEDS ORDERED: MIDAZOLAM HCL 1 MG/ML 2ML VIAL ONE (08:33)
[2022-02-01] MEDS ORDERED: fentaNYL citrate 100 MCG/2 ML VIAL ONE (08:33)
[2022-02-01] MEDS ORDERED: niCARdipine HCL INJ 2.5 MG/ML 10 ML AMP ONE (08:33)
[2022-02-01] MEDS ORDERED: HEPARIN (PORCINE) 1000 UNIT/ML 10 ML (CATH LAB USE ONLY) ONE (08:33)
[2022-02-01] MEDS ORDERED: NITROGLYCERIN/D5W 100MCG/ML 20ML SYR ONE (08:34)
[2022-02-01] MEDS ORDERED: LIDOCAINE 1% LOCAL 20 ML VIAL ONE (08:38)
[2022-02-01 09:02] LABS: Anion Gap 6 (3-11); Blood Urea Nitrogen 20 mg/dl (6-23); Calcium 9.4 mg/dl (8.5-10.1); Carbon Dioxide 32 mmol/L (21-32); Chloride 102 mmol/L (98-107); Creatinine Clr Calc Pharmacy 76.8 ml/min; Est GFR (Non-African American) 59.5 ml/min; Glucose 107 mg/dl (70-99(Fasting)); Sodium 140 mmol/L (136-145)
[2022-02-01 10:11] LABS: iSTAT Arterial Blood Gas HCO3 30 meg/L (19-24); iSTAT Arterial Blood Gas pCO2 50 mmHg (35-46); iSTAT Arterial Blood Gas pH 7.38 (7.35-7.45); iSTAT Arterial Blood Gas pO2 < 32 mmHg (80-95); iSTAT Carbon Dioxide 31 mmol/L (24-31)
[2022-02-01 10:11] LABS: iSTAT Arterial Blood Gas HCO3 28 meg/L (19-24); iSTAT Arterial Blood Gas pCO2 45 mmHg (35-46); iSTAT Arterial Blood Gas pH 7.41 (7.35-7.45); iSTAT Arterial Blood Gas pO2 59 mmHg (80-95); iSTAT Carbon Dioxide 29 mmol/L (24-31)
--- NOTE | 2022-02-01 10:31 | Post Anesthesia Assessment ---
Date of Service February 01, 2022 Post Sedation Assessment Vital Signs Temp Pulse Pulse Resp BP BP Pulse Ox 02/01/22 10:25 69 16 128/78 97 02/01/22 10:15 65 14 124/89 94 02/01/22 10:09 67 16 124/82 98 02/01/22 09:47 02/01/22 08:00 67 02/01/22 07:44 96 02/01/22 07:27 36.5 C 60 18 105/61 95 02/01/22 02:15 36.5 C 72 16 117/65 97 01/31/22 22:00 36.6 C 72 18 114/67 95 01/31/22 22:06 74 01/31/22 21:00 01/31/22 19:15 36.6 C 73 18 105/76 97 01/31/22 16:00 75 01/31/22 15:01 36.9 C 67 18 105/59 L 96 01/31/22 10:53 36.6 C 68 18 103/53 L 97 O2 Del Method O2 Flow Rate 02/01/22 10:25 Room Air 02/01/22 10:15 Room Air 02/01/22 10:09 Room Air 02/01/22 09:47 Room Air 02/01/22 08:00 02/01/22 07:44 Room Air 02/01/22 07:27 Nasal Cannula 5 02/01/22 02:15 Nasal Cannula 5 01/31/22 22:00 Room Air 01/31/22 22:06 01/31/22 21:00 Nasal Cannula 01/31/22 19:15 Nasal Cannula 5 01/31/22 16:00 01/31/22 15:01 Nasal Cannula 5 01/31/22 10:53 Nasal Cannula 5 Recovery Score Activity: Moves 4 extremities Respiration: Deep Breath/Cough Circulation: +/-20% PreAnes Value Consciousness: Fully Awake Oxygen Saturation: > 92% On Room Air Post Anesthesia Score: 10 Discharge Sedation Level of Care: Phase I Post Sedation Plan On clinical assessment, the patient appears to have tolerated the sedation without complications. Patient is recovering as anticipated. Patient will continue to be monitored by nursing and may be discharged when sedation discharge criteria are met per below protocol. Upon Completions of procedure up to 15 minutes continue every 5 minute vital signs and the P.A.R. score; then discharge to a Phase I or Fast Track to Phase II per the following guidelines: * Discharge Patient to appropriate Phase II area if PAR is 8 or greater or return to pre- procedure baseline. The post - procedure orders will be as directed. * If PAR score is less than 8 or not return to pre-procedure baseline then patient will follow Phase I monitoring till PAR is reached for Phase II. The Phase I may be done in procedure room or may call to secure a Phase I area. * If naloxone or flumazenil are used for reversal, hold in Phase I for continued monitoring from when last reversal dose was given for a minimum of 60 minutes or longer pending the nurse and/or physician discretion of patient condition before discharge to Phase II. Please call the Sedation Physician to re-evaluate and complete post-note for discharge to Phase II area. Do NOT discharge from procedure sedation or Phase 1 until post- sedation evaluation note is complete by procedure /sedation MD Sedation Discharge Instructions to be given to the patient at discharge to home. [facility] Procedure Codes (Charges) Indication for Procedure Indication for procedure: CHF, NSTEMI Sedation/Anesthesia Procedure 1: Sedation/Anesthesia: 87200 Mod Sedation by the same physician;Init15 Min Child Age 5 & Up Total Sedation Time (minutes): 15 Procedure 2: Sedation/Anesthesia: 72605 Mod Sedation by the same physician; Ea [id number] Minutes (38 additional minutes) Total Sedation Time (minutes): 53
--- NOTE | 2022-02-01 10:55 | Cardiac Catheterization ---
[facility] Data: Financial Reporting Advisor Cardiac Status Clinical evaluation leading to the procedure CAD Presenation: Non STEMI Anginal Classification: No Symptoms Heart Failure: NYHA Class: CCS IV Cardiogenic Shock within 24 Hours: No Cardiac Arrest within 24 Hours: No Imaging Studies Past 6 Months: Yes Coronary Anatomy Dominant: Right Left Main (% Stenosis): Normal LAD (% Stenosis): Mid (Mild) and Distal (30%) D1 (% Stenosis): Normal D2 (% Stenosis): Normal Circumflex (% Stenosis): Normal OM1 (% Stenosis): Normal OM2 (% Stenosis): Normal RCA (% Stenosis): Normal R PDA (% Stenosis): Normal Diagnostic Physicians Name: Bobby Ward MD, PhD Closure Device Percutaneous Entry Location: Radial and femoral Closure Device: Angio-Seal and Radial Band Recommendations: Medical Therapy and/or Counseling Cardiac Cath Procedure Full Procedure Date February 01, 2022 Pre-Procedure Diagnosis Pre-Procedure Diagnosis: Non STEMI, CHF and Cardiomyopathy AUC Score AUC Score: 07 Post-Procedure Diagnosis Post-Procedure Diagnosis: Normal Coronary Arteries Procedure(s) Performed Procedure(s) Performed: Coronary Angiography, Left Heart Cath, Right Heart Cath and Ultrasound Guided Vascular Access [employer] Bobby Ward MD, PhD Estimated Blood Loss Estimated Blood Loss: 10 ml Medication(s) Medication(s): Fentanyl, Lidocaine 1%, Nicardipine, Nitroglycerin and Versed Summary of Findings Brief description: Patient was brought to the cardiac catheterization suite where she was shaved and prepped in a sterile fashion. Sedated using IV Versed and fentanyl. She had an indwelling large bore IV in the right antecubital fossa vein. Soft tissues of the right wrist were anesthetized using 2 mL of 1% Xylocaine. The right radial artery was accessed using a modified Seldinger technique and a 6 Malagasy radial artery glide sheath was placed. Patient was provided antispasmodics including nicardipine and nitroglycerin. Soft tissues of the right antecubital fossa were also anesthetized using 1 mL of 1% Xylocaine. The large bore IV was exchanged over a 0.014 wire and a 6 Malagasy glide sheath was placed. Attempts to aspirate through the sheath were unsuccessful. Even with repositioning and reinsertion we were unable to maintain access in the lumen. Therefore, this site was abandoned as an access point for the right heart cath. This sheath remained in place until the end of the procedure. We attempted to perform coronary angiography via the right radial artery access. However, we could not deliver the catheter to the ascending aorta despite use of additional wires, etc. 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 Therefore, we decided to abandon attempts from the radial artery access. We turned our attention to femoral access. Soft tissues of the right groin were anesthetized using 10 mL of 1% Xylocaine. Using the ultrasound for guidance (image saved), the right femoral vein was accessed and a 6 Malagasy venous sheath was placed. Still using the ultrasound for guidance, the right femoral artery was accessed and a 5 Malagasy femoral artery sheath was placed. Left coronary angiography was performed in orthogonal views with a 5 Malagasy JL 4 diagnostic catheter. Right coronary angiography was performed in orthogonal views with a 5 Malagasy JR4 diagnostic catheter. Left heart cath was performed using a 5 Malagasy angled pigtail catheter. Diagnostic catheters were removed. Right heart cath was performed using a 6 Malagasy Briscoe-Fortino catheter advanced under fluoroscopic guidance and with a Briscoe wire in place. Systemic arterial oxygen saturation was measured via the femoral artery sheath. Pulmonary capillary wedge pressure was measured with the balloon on the Briscoe-Fortino catheter inflated. The balloon was then deflated and pulmonary arterial pressure and oxygen saturation were obtained. The Briscoe-Fortino catheter was then pulled back into the right ventricle where right ventricular hemodynamics were measured. Finally, the catheter was pulled back into the right atrium where right atrial pressure and oxygen saturation were measured. The cardiac output was determined by the method of Beatrice. Briscoe-Fortino catheter was removed from the patient. Limited femoral artery angiography was performed to evaluate for closure. Findings were favorable, therefore, the femoral artery sheath was exchanged for a 6 Malagasy Angio-Seal closure device. This was deployed in the recommended fashion. We obtained immediate hemostasis and the patient remained hemodynamically stable. The femoral venous sheath was then removed and hemostasis was obtained using manual compression. The radial artery sheath was then removed and hemostasis was obtained using the TR band. The venous sheath in the right antecubital fossa was removed and hemostasis was obtained using manual compression. Patient remained hemodynamically stable and was returned to the recovery area. This ended the case. Findings: Right heart cath: PCWP: 21 mmHg PAP: 29/21 mmHg, mean 23 mmHg RV: 28 over 11 mmHg, RVEDP 12 mmHg RA: 13 mmHg Systemic arterial oxygen saturation: 90% Pulmonary arterial oxygen saturation: 51% Right atrial oxygen saturation: 45% Cardiac output (Beatrice): 5.28 L/min Cardiac index (Beatrice): 2.3 L/min/m Coronary angiography: LMT: Large caliber vessel bifurcating into LAD and left circumflex. No more than mild luminal irregularities. LAD: Large caliber and transapical. Gives several septals and 2 diagonals. The first diagonal is medium to large in caliber. The second diagonal is large and branching. Proximal LAD without significant disease. Mid vessel has mild luminal irregularities in the early distal vessel has focal less than 30% stenosis. The remainder of the LAD and its branches have no angiographically evident disease. LCx: Large caliber vessel traveling in the AV groove. It has 2 large obtuse marginal branches and terminates distally in the AV groove. There is no more than mild luminal irregularities in the circumflex and its branches. RCA: Large caliber and dominant vessel. Becomes a large caliber PDA distally. No more than mild luminal irregularities in the RCA and its branches. Summary: Right heart cath consistent with persistent mild volume overload Essentially normal coronary arteries Continue optimized medical therapy to achieve euvolemia. Guideline directed medical therapy for nonischemic cardiomyopathy. Hemodynamics Rest Ao:: 91/70 mmHg, mean 79 mmHg Final Ao: 97/76 mmHg, mean 86 mmHg LV: 99/17 mmHg, LVEDP 17 mmHg Recommendations Recommendations: Medical Therapy and/or Counseling Radiation Exposure (mGy) 1901 mGy, 8.2 minutes fluoroscopy time Contrast (mls) 60 mL Anesthesia 1 mg IV Versed, 25 mcg IV fentanyl Procedural Complication(s) None Disposition Recovery Room\PACU I attest to the content of the Intraoperative Record and any orders documented therein. Any exceptions are noted below. [facility] Card Cath Procedure Codes Cardiac Catheterization Procedure 1: Cardiovascular Cath Procedures: 11242 Coronaries & LHC (+/-LV) & RHC Therapeutic Services & Ancillary Procedure 1: Cardiovascular Tx and Anc Procedures: 87624 Ultrasonic Guidance Vascular Access Moderate Sedation Procedure 1: Sedation/Anesthesia: 63546 Mod Sedation by the same physician;Init15 Min Child Age 5 & Up (15 minutes (total 53 minutes for case)) Procedure 2: Sedation/Anesthesia: 82630 Mod Sedation by the same physician; Ea [id number] Minutes (38 minutes (total 53 minutes for case)) PG Care Time/CCT Total # of Minutes Spent Total Time Spent with Patient: Total time spent is greater than 50% in coordination of care (as documented) at patient's floor/unit and/or counseling patient:
--- NOTE | 2022-02-01 11:06 | Cardiology Progress Note ---
Date of Service February 01, 2022 Assessment & Plan (1) Cardiomyopathy: Plan: Cardiac catheterization demonstrates minimal coronary disease. Therefore, her cardiomyopathy is nonischemic. Unclear etiology with potential triggers including COVID-19, obesity, thyroid dysfunction, valvular heart disease, or additional viral etiologies. Outpatient work-up to exclude other etiologies is recommended. Present on Admission?: Yes (2) HFrEF (heart failure with reduced ejection fraction): Plan: Patient is approaching euvolemia. Would continue diuresis with Lasix 20 mg IV twice daily at least until tomorrow. Then, changed to oral regimen. Continue to closely follow her weight and ins and outs. I would limit IV medications involving significant volume if possible. Currently tolerating chronic regimen including carvedilol 3.125 mg p.o. twice daily, Entresto 26/24 mg p.o. twice daily, and Aldactone 12.5 mg p.o. daily. We should also consider an SGLT2 inhibitor prior to discharge. Finally, she has frequent PVCs and severely reduced EF. She should be considered for LifeVest as a prophylactic measure for sudden cardiac to be continued for 3 months. Reassess EF in 3 months after maximum medical therapy. Present on Admission?: Yes (3) Non-ST elevation HI (NSTEMI): Plan: This is a type II non-ST elevation HI. Coronary angiography demonstrates no evidence of significant coronary disease or ACS. (4) Mitral valve insufficiency, acquired: Plan: Severe and not ischemia related. Once we have been able to adequately diurese/unload her heart and place her on optimized medical therapy then reassessment of mitral valve regurgitation severity should be undertaken. If she remains severely regurgitant despite these measures she may be appropriate for mitral valve repair. This also significantly contributes to residual pulmonary edema and pleural effusions. (5) Pulmonary hypertension: Plan: Most likely a secondary phenomenon. Probable obstructive sleep apnea, cardiomyopathy, valvular heart disease, with associated pulmonary hypertension. Mild to moderate based upon echo findings. However, right heart cath does not suggest systolic elevation. Admission and Anticipated Discharge Date Admission Date: January 29, 2022 Subjective Patient states that she is feeling much better. No longer short of breath and able to laying nearly flat. She denies any chest pain. She underwent cardiac catheterization including coronary angiography, left heart cath, and right heart cath. She has a TR band in place at the right radial access site. Unfortunately, she also required femoral artery and femoral venous access to complete the study. Angio-Seal closure of the femoral artery access site with manual compression on the venous access. She will be on 2 hours bedrest for the groin access. TR band per protocol. She has no other complaints at this time. Catheterization showed essentially normal coronaries. Some evidence of persistent (mild) volume overload predominantly on the right. Reviewing her ins and outs for the past 24 hours she is -1.44 L negative net. However, for the admission she is actually positive. However her weight is down 12 pounds. Review of Systems Review of Systems: Negative except as per HPI Physical Exam Constitutional: WD/WN, vitals as above (Morbidly obese (BMI greater than 50)) Eyes: PERRL, conjunctivae normal, anicteric sclerae ENMT: external ear and nose normal, oropharynx normal Neck: JVD 7 cm water Respiratory: normal respiratory effort, lungs clear to auscultation (Bibasilar crackles plus or minus dullness. Good air movement.) Cardiovascular: Regular rate and rhythm. S4 gallop. Grade 2 out of 6 systolic murmur. 1+ lower extremity edema Neurologic: Cognition is intact. Speech is fluent. No focal deficits. Psychiatric: A+Ox3, euthymic affect Results & Data ([facility]) Vital Signs (Past 12 Hours) Vital Signs Temp Pulse Pulse Resp BP BP Pulse Ox 02/01/22 10:40 36.4 C L 66 16 107/70 96 02/01/22 10:25 69 16 128/78 97 02/01/22 10:15 65 14 124/89 94 02/01/22 10:09 67 16 124/82 98 02/01/22 09:47 02/01/22 08:00 67 02/01/22 07:44 96 02/01/22 07:27 36.5 C 60 18 105/61 95 02/01/22 02:15 36.5 C 72 16 117/65 97 O2 Del Method O2 Flow Rate 02/01/22 10:40 Room Air 02/01/22 10:25 Room Air 02/01/22 10:15 Room Air 02/01/22 10:09 Room Air 02/01/22 09:47 Room Air 02/01/22 08:00 02/01/22 07:44 Room Air 02/01/22 07:27 Nasal Cannula 5 02/01/22 02:15 Nasal Cannula 5 PG Care Time/CCT Total # of Minutes Spent Total Time Spent with Patient: Total time spent is greater than 50% in coordination of care (as documented) at patient's floor/unit and/or counseling patient: Coding Level of Care Code 35651 Subseq Hosp Care Lvl 3 Diagnoses Cardiomyopathy I42.9 HFrEF (heart failure with reduced ejection fraction) I50.20 Non-ST elevation HI (NSTEMI) I21.4 Mitral valve insufficiency, acquired I34.0 Pulmonary hypertension I27.20
[2022-02-01 15:45] LABS: iSTAT Arterial Blood Gas HCO3 25 meg/L (19-24); iSTAT Arterial Blood Gas pCO2 44 mmHg (35-46); iSTAT Arterial Blood Gas pH 7.36 (7.35-7.45); iSTAT Arterial Blood Gas pO2 < 32 mmHg (80-95); iSTAT Carbon Dioxide 26 mmol/L (24-31)
[2022-02-01] MEDS: cefTRIAXone SODIUM 2,000 MG in DEXTROSE 5% 50 ML IV SCH (17:00)
--- NOTE | 2022-02-01 19:22 | Hospitalist Progress Note ---
Date of Service February 01, 2022 Assessment & Plan (1) HFrEF (heart failure with reduced ejection fraction): Plan: Continue Lasix 20 mg IV twice daily Continue spironolactone 25 mg p.o. daily Aim for 1 to 1.5 L net negative balance per day. -ve 1440ml in last 24 hours. Strict I&Os, daily weights Fluid restrict 1500ml (2) Cardiomyopathy: Plan: Confirmed non-ischemic on cardiac cath Tolerating Entresto and carvedilol Continue Entresto 26/24 mg p.o. twice daily Continue carvedilol 3.125 mg p.o. twice daily -> up titrate to 6.25mg PO (3) New onset of congestive heart failure: Plan: As above (4) Hypoxia: Plan: Suspect secondary to pulmonary edema due to heart failure. Aim O2 sats greater than 94%. (5) Elevated troponin I level: Plan: Type 2 NSTEMI - demand ischemia (6) Lower lobe pneumonia: Plan: Possible diagnosis. Suspect more likely atelectasis. Continue ceftriaxone and azithromycin (7) Diabetes mellitus: Plan: - On liraglutide and metformin at home, hold these while inpatient. - Given current glucose levels will reduce Lantus to 5 units twice daily. Novolog: --Goal BSG Range: Low 110 mg/dL, High 140 mg/dL --Correction Factor: 45 mg/dL/unit --Carbohydrate ratio = 15 g/unit --BSGs ACHS if eating, q6h if npo HbA1c 6.0. Given heart failure consider SGLT2 inhibitor as an outpatient. (8) Hypertension: Plan: Discontinue losartan and amlodipine in favor of more specific cardiomyopathy medications of Entresto and carvedilol as above. Diuretics with Lasix and spironolactone as above. (9) Hyperlipidemia: Plan: - Continue simvastatin (10) Mixed stress and urge urinary incontinence: Plan: - Continue Detrol, Mybetriq (11) Morbid obesity: Plan: Possibly some degree of obesity hypoventilation. Consider obstructive sleep apnea sleep study as an outpatient. Plan VTE Prophylaxis - SCDs, Lovenox for VTE PPx (will hold following cardiac cath) Diet - type 2 diabetes, heart healthy, low-sodium, fluid restrict to 1500 mL Disposition - continued admission on PCU Admission and Anticipated Discharge Date Admission Date: January 29, 2022 Anticipated date of discharge: 02/02/22 Subjective No significant coronary artery stenosis on cardiac cath. Patient reports significant improvement in her shortness of breath. No chest pain. Better than baseline. Review of Systems Review of Systems: All systems reviewed & are unremarkable except as noted in Subjective Physical Exam Constitutional: WD/WN, vitals as above Respiratory: normal respiratory effort Cardiovascular: Rate/Rhythm: regular rate and regular rhythm Vessels: + JVD Extremities: + pedal edema (1+ b/l pre-tibial pitting) Skin: no rashes, warm and dry Psychiatric: A+Ox3, euthymic affect Results & Data Results & Data ([facility]) Vital Signs (Past 12 Hours) Vital Signs Temp Pulse Pulse Resp BP Pulse Ox O2 Del Method 02/01/22 16:55 36.6 C 73 18 143/74 H 95 Room Air 02/01/22 15:40 36.9 C 02/01/22 14:40 80 16 121/66 97 Room Air 02/01/22 13:40 37.1 C 68 120/71 02/01/22 12:40 75 16 130/71 02/01/22 11:40 65 18 128/70 96 Room Air 02/01/22 11:10 36.8 C 65 16 137/72 97 Room Air 02/01/22 10:40 36.4 C L 66 16 107/70 96 Room Air 02/01/22 10:25 69 16 128/78 97 Room Air 02/01/22 10:15 65 14 124/89 94 Room Air 02/01/22 10:09 67 16 124/82 98 Room Air 02/01/22 09:47 Room Air 02/01/22 08:00 67 02/01/22 07:44 96 Room Air 02/01/22 07:27 36.5 C 60 18 105/61 95 Nasal Cannula O2 Flow Rate 02/01/22 16:55 02/01/22 15:40 02/01/22 14:40 02/01/22 13:40 02/01/22 12:40 02/01/22 11:40 02/01/22 11:10 02/01/22 10:40 02/01/22 10:25 02/01/22 10:15 02/01/22 10:09 02/01/22 09:47 02/01/22 08:00 02/01/22 07:44 02/01/22 07:27 5 PG Care Time/CCT Total # of Minutes Spent Total Time Spent with Patient: Total time spent is greater than 50% in coordination of care (as documented) at patient's floor/unit and/or counseling patient: Coding Level of Care Code 74684 Subseq Hosp Care Lvl 2 Diagnoses HFrEF (heart failure with reduced ejection fraction) I50.20 Cardiomyopathy I42.9 New onset of congestive heart failure I50.9 Hypoxia R09.02 Elevated troponin I level R77.8 Lower lobe pneumonia J18.9 Laterality: bilateral Pneumonia type: due to unspecified organism Diabetes mellitus E11.9 Diabetes mellitus type: type 2 Diabetes mellitus skilled nursing insulin use: without 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 Diabetes mellitus complication status: without complication Hypertension I10 Hypertension type: unspecified Hyperlipidemia E78.5 Mixed stress and urge urinary incontinence N39.46 Morbid obesity E66.01 (1) Lower lobe pneumonia Laterality: bilateral Pneumonia type: due to unspecified organism Qualified Code(s): J18.9 - Pneumonia, unspecified organism (2) Diabetes mellitus Diabetes mellitus type: type 2 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
[2022-02-01] MEDS: SIMVASTATIN 20 MG TAB PO SCH (20:14)
[2022-02-01] MEDS: carvediloL 6.25 MG TAB PO SCH (20:29)
[2022-02-02 07:27] LABS: BUN Creatinine Ratio 22.2 (10-20); Calcium 9.1 mg/dl (8.5-10.1); Creatinine Clr Calc Pharmacy 71.4 ml/min; Est GFR (African American) 62.8 ml/min; Est GFR (Non-African American) 54.2 ml/min; Magnesium 2.2 mg/dl (1.7-2.4)
[2022-02-02] MEDS: INSULIN ASPART PER UNIT SC SCH ×4 (08:14→19:55)
[2022-02-02] MEDS: LANTUS PER UNIT CHARGE SQ SCH ×2 (08:15→20:01)
[2022-02-02] MEDS: carvediloL 6.25 MG TAB PO SCH ×2 (08:22→20:14)
[2022-02-02] MEDS: SPIRONOLACTONE 12.5 MG TAB PO SCH (08:24)
[2022-02-02] MEDS: MIRABEGRON ER 25 MG TAB PO SCH (08:24)
[2022-02-02] MEDS: ASPIRIN 81 MG ECTAB PO SCH (08:24)
[2022-02-02] MEDS: CYANOCOBALAMIN (B-12) 500 MCG TABLET PO SCH (08:24)
[2022-02-02] MEDS: CHOLECALCIFEROL 5,000 UNITS 125 MCG TAB PO SCH (08:24)
[2022-02-02] MEDS: FUROSEMIDE INJ 20 MG/2 ML VIAL IV SCH ×2 (08:24→17:11)
[2022-02-02] MEDS: TOLTERODINE TARTRATE LA 4 MG CAPCR PO SCH (08:24)
[2022-02-02] MEDS: AZITHROMYCIN 250 MG TAB PO SCH (08:24)
[2022-02-02] MEDS: VALSARTAN/SACUBITRIL 26/24MG TAB PO SCH ×2 (08:24→20:14)
--- NOTE | 2022-02-02 09:46 | Discharge Summary ---
Date of Service February 02, 2022 Admission HPI Per Admitting Provider Brenda Carballo is a 66 y/o female with a past medical history of DM2, hypertension, hyperlipidemia, GERD presenting today for shortness of breath. Patient is actually been feeling short of breath for the past 6 months, however the past several days noticed and been worse than usual with minimal activity. She had COVID-19 infection 1 month ago and recovered well from that without hospitalization. Is noticing that walking up stairs is causing her to feel quite winded and lying flat is difficult due to worsening short of breath. She has developed a dry cough over the past week, but no fever chills, chest pain/pressure, palpitations, abdominal pain, swelling, nausea, vomiting, diarrhea, constipation. Upon presentation she is mildly hypertensive, satting 92% on room air, however desatted down to 87% upon ambulation, and further required a 10 L nonrebreather mask. She is without leukocytosis or left shift, however chest CT with evidence of patchy airspace opacities within the bilateral lower lobes posteriorly favoring pneumonia, as well as mild pulmonary edema and small bilateral lateral pleural effusions. He is also tested COVID-positive however this is likely not new as she was positive last month for COVID-19 infection. Labs also significant for troponin of 91.7, Principal Diagnosis Acute congestive heart failure Non-ischemic cardiomyopathy Possible bacterial pneumonia SARS-COV-2 PCR positive - suspected due to prior infection Discharge Data Allergies Allergy/AdvReac Type Severity Reaction Status Date / Time MICHELLE Inhibitors Allergy Intermediate EYE Verified 01/29/22 16:40 SWELLING atorvastatin AdvReac Intermediate MUSCLE Verified 01/29/22 16:40 ACHES Consultations 01/29/22 16:38 ED Decision to Admit Stat 01/30/22 10:46 Consult Cardiology Routine Procedures Performed Operation Date: 02/01/22 09:30 Actual Procedures p Cineradiography w/Routine Exam - Bobby Ward MD, PhD s Cath, Right and Left Heart - Bobby Ward MD, PhD s Placement Art Occlusive Device - Bobby Ward MD, PhD s Ultrasound Vascular Access - Bobby Ward MD, PhD Ordered Studies 01/29/22 14:27 CT angio chest PE protocol Stat 02/01/22 07:00 CL Cath Imgs for PACS use only Routine Hospital Course (1) HFrEF (heart failure with reduced ejection fraction): You were admitted to [facility] from January 29 to 2021 due to shortness of breath. You were diagnosed with acute congestive heart failure. You were treated with diuretics (Lasix and spironolactone) and you are no longer requiring oxygen on discharge. Please continue Lasix and spironolactone as prescribed until follow-up with the heart failure clinic. Please call the heart failure clinic (Leanne Perez, number above) if you are getting more short of breath before your appointment. Please discuss starting an SGLT 2 inhibitor for your diabetes with your primary care provider as this medications can help reduce the risk of hospitalization from heart failure. See below for heart failure clinic discharge instructions. You are in heart failure due to your heart not pumping efficiently. Left ventricular ejection fraction on echocardiogram was 15-20%. You were started on carvedilol and Entresto for this. Cardiac catheterization ruled out coronary artery disease as a cause of this. Thyroid function was normal. Please follow up with cardiology (Dr Hollins) above for ongoing investigations and management of this. You were also diagnosed with possible pneumonia. Please finish a full course of antibiotics for this as prescribed with Augmentin for 3 days and azithromycin for 1 further day on discharge. (2) Cardiomyopathy: (3) New onset of congestive heart failure: (4) Hypoxia: (5) Elevated troponin I level: (6) Lower lobe pneumonia: (7) Diabetes mellitus: (8) Hypertension: (9) Hyperlipidemia: (10) Mixed stress and urge urinary incontinence: (11) Morbid obesity: Discharge Plan Discharge Items Patient Disposition: Home - Self-Care Reason For Visit: ACUTE/CHRONIC RESPIRATORY FAILURE WITH PULM EDEMA Discharge Diagnosis: Acute congestive heart failure Non-ischemic cardiomyopathy Possible bacterial pneumonia SARS-COV-2 PCR positive - suspected due to prior infection Activity: Per Instructions section Non-emergency contact: Engraver Wood Call non-emergency contact if: you have any medication questions and your symptoms worsen Follow-up/Referrals: Capo Hollins MD [Physician] - (2-4 week follow up non-ischemic cardiomyopathy) Valdez Rankin MD [Primary Care Provider] - Gloria Perez PAJayleenC [Physician Sleep Lab Technologist] - 02/09/22 10:30 am (Congestive Heart Failure Program Appointment Information Early follow up is essential to managing your heart failure. An appointment has been scheduled for you with the [facility] Heart Failure Program within 7 days of discharge. Anticipate this visit to be 30-60 minutes long. Please expect a records coordinator phone call from one of our nurses approximately 48 hours from discharge. They will also be placing an order for lab work to be completed 1-2 days prior to your heart failure follow up appointment. Please be sure to have this done so we can go over the results when you come in. Office Location The cardiology office building is located in front of the hospital at [address] Bring the following with you to your follow-up doctor appointments: Please bring your daily weight log any discharge paperwork all of your medication bottles with you to this visit. ) Diet: Heart Healthy and Low Sodium (2gm) Addtl Attending Provider Instructions: You were admitted to [facility] from January 29 to 2021 due to shortness of breath. You were diagnosed with acute congestive heart failure. You were treated with diuretics (Lasix and spironolactone) and you are no longer requiring oxygen on discharge. Please continue Lasix and spironolactone as prescribed until follow-up with the heart failure clinic. Pl ease call the heart failure clinic (Leanne Perez, number above) if you are getting more short of breath before your appointment. Please discuss starting an SGLT 2 inhibitor for your diabetes with your primary care provider as this medications can help reduce the risk of hospitalization from heart failure. See below for heart failure clinic discharge instructions. You are in heart failure due to your heart not pumping efficiently. Left ventricular ejection fraction on echocardiogram was 15-20%. You were started on carvedilol and Entresto for this. Cardiac catheterization ruled out coronary artery disease as a cause of this. Thyroid function was normal. Please follow up with cardiology (Dr Hollins) above for ongoing investigations and management of this. You were also diagnosed with possible pneumonia. Please finish a full course of antibiotics for this as prescribed with Augmentin for 3 days and azithromycin for 1 further day on discharge. Addtl Customer Support Coordinator Provider Instructions: Heart failure clinic discharge instructions: Call your Primary Care doctor if any of the following symptoms or problems start or get worse: * Shortness of breath or difficulty breathing * Wake up at night short of breath * Chest pain * Cough * Swelling of your hands, feet, or legs * More fatigued or tired with your normal activity * Palpitations - sudden fast heart beats WEIGHT * Weigh yourself every morning after using the bathroom. * Use the same scale. * Wear the same amount of clothing. * Write your weight down on a chart. * Call your Primary Care doctor if you gain more than 2-3 pounds in 1-2 days. MEDICATIONS * Use this discharge instruction sheet for medication instructions. * Take your medications at the time your doctor ordered. * Do not skip a dose of your medicines. * If you miss a dose of medicine, take it as soon as possible, but DO NOT DOUBLE A DOSE. * Read your medicine information when you get home. * Know all of the side effects of your medicine. If in doubt, ask your pharmacist * Call your Primary Care doctor's office if you have any side effects. * Be sure all of your doctors know what medicine and herbs you take (including cold, flu, and herbal medicine). Take the following with you to your follow-up doctor appointments: * Weight Chart * Medication List * List of questions Do not drink excessive alcohol, beer or wine. Pending Studies at Discharge: No Stand-Alone Forms: My [facility], Smoking Cessation Medications and DC Order Prescriptions: New carvedilol 6.25 mg Tablet 6.25 mg PO BID Qty: 60 0RF Entresto 24-26 mg Tablet 1 tab PO BID Qty: 60 0RF spironolactone 25 mg Tablet 12.5 mg PO QAM Qty: 30 0RF furosemide [Lasix] 40 mg tablet 40 mg PO DAILY Qty: 30 0RF azithromycin 250 mg tablet 250 mg PO DAILY 1 Days Qty: 1 0RF amoxicillin-pot clavulanate 875-125 mg tablet 1 tab PO BID 3 Days Qty: 6 0RF Continued mecobalamin (vitamin B12) 1,000 mcg tablet,disintegrating 1,000 mcg SL DAILY Qty: 90 3RF Rx Instructions: place tablet under tongue and allow to dissolve for at least30 secs before swallowing Victoza 3-Christiano 0.6 mg/0.1 mL (18 mg/3 mL) pen injector 1.8 mg SQ DAILY Qty: 3 3RF simvastatin 20 mg tablet 20 mg PO HS Qty: 90 3RF omega-3 fatty acids-fish oil [Fish Oil] 360-1,200 mg capsule 2 cap PO TID (DME) blood-glucose meter See Rx Instructions .Route Rx Instructions: Livongo brand- test blood sugar once daily (DME) pen needle, diabetic [BD Ultra-Fine Nuris Pen Needle] 32 gauge x 5/32" needle See Rx Instructions .ROUTE .MEDSUPPLY Qty: 100 3RF Rx Instructions: use 1 daily with Victoza metformin 1,000 mg tablet 1,000 mg PO BID Qty: 180 1RF aspirin [Mirta Low Dose Aspirin] 81 mg Tablet,Delayed Release (Dr/Ec) 81 mg PO QAM cholecalciferol (vitamin D3) [Vitamin D3] 125 mcg (5,000 unit) Tablet 125 mcg PO DAILY tolterodine 4 mg capsule,extended release 24hr 4 mg PO DAILY Rx Instructions: TAKE 1 CAPSULE BY MOUTH DAILY Myrbetriq 50 mg tablet extended release 24 hr 50 mg PO DAILY Rx Instructions: TAKE 1 TABLET BY MOUTH EVERY DAY Discontinued losartan 25 mg tablet 25 mg PO QAM Qty: 90 3RF amlodipine 10 mg tablet 10 mg PO QAM Qty: 90 1RF ibuprofen 200 mg Tablet 200 mg PO DIRECTED PRN (Reason: Pain) Discharge Orders: Discharge Order (Routine); Ordered 02/02/22 Ordered By: Jayce Johnson/Other Patient Handouts: High Blood Sugar (Hyperglycemia), Hypoglycemia (Low Blood Sugar), Managing Type 2 Diabetes Admission Data Admit Date/Time: 01/29/22 17:23 Attending Provider: Jayce Arnold Admit Provider: José Luis Hughes Primary Care Provider: Valdez Rankin V. Other Providers: José Luis Hughes ; Capo Hollins Coding Diagnoses HFrEF (heart failure with reduced ejection fraction) I50.20 Cardiomyopathy I42.9 New onset of congestive heart failure I50.9 Hypoxia R09.02 Elevated troponin I level R77.8 Lower lobe pneumonia J18.9 Laterality: bilateral Pneumonia type: due to unspecified organism Diabetes mellitus E11.9 Diabetes mellitus type: type 2 Diabetes mellitus fdc insulin use: without fdc use Diabetes mellitus complication status: without complication Hypertension I10 Hypertension type: unspecified Hyperlipidemia E78.5 Mixed stress and urge urinary incontinence N39.46 Morbid obesity E66.01
--- NOTE | 2022-02-02 10:27 | Cardiology Progress Note ---
Date of Service February 02, 2022 Assessment & Plan (1) Cardiomyopathy: (2) Normal coronary arteries: (3) HFrEF (heart failure with reduced ejection fraction): (4) Diabetes mellitus: (5) Morbid obesity: Plan She is doing well clinically with apparently good diuresis (poorly documented) and no symptoms. Appears euvolemic or minimally hypervolemic. Given reduced efficacy of oral furosemide would increase diuretic dose on discharge to furosemide 40 mg daily. If she has any abrupt weight gain, she should increase this to 60 mg daily, for any significant weight loss she would skip the diuretic for a day. Continue carvedilol, Entresto, spironolactone, hemodynamics are favorable. Further dose titration as outpatient. Could add Jardiance 10 mg daily now or at the time of her follow-up in heart failure clinic. Given severely reduced LV systolic function and sporadic ventricular ectopy, recommend LifeVest for the next 3 to 4 months. Reassess LV function at that time, if it remains less than 35% consider ICD. Cardiology follow-up in heart failure clinic next week and with me in 3 to 4 weeks. Admission and Anticipated Discharge Date Admission Date: January 29, 2022 Subjective No complaints, she feels well. No chest discomfort, dyspnea, or palpitations. I/O -510. Weight down 10 pounds from admission. Telemetry shows sinus rhythm with sporadic PVCs but no couplets or runs. Physical Exam Physical Exam: Appears comfortable. BP low normal. Pulse 69 bpm and regular. Respirations 18 and unlabored. Skin: no ecchymoses or generalized lesions. HEENT: unremarkable. Neck: Difficult neck exam due to habitus, however jugular venous pulse just above the clavicle, no carotid bruits. Lungs: Mildly decreased breath sounds, clear. Cardiac: regular rhythm, faint heart tones secondary to body habitus, grossly normal S1 and S2, questionable soft systolic murmur in the axilla but no obvious pathologic murmurs. Abdomen: benign. Extremities: No pretibial edema. Neurologic: normal affect and conversation, nonfocal. Results & Data ([facility]) Vital Signs (Past 12 Hours) Vital Signs Temp Pulse Pulse Resp BP Pulse Ox O2 Del Method 02/02/22 08:08 97.7 F 69 18 102/66 95 Room Air 02/02/22 07:00 71 02/02/22 02:21 97.9 F 67 18 120/70 90 02/01/22 23:00 73 02/01/22 22:22 97.9 F 70 18 104/67 92 Room Air Laboratory Results Normal electrolytes, BUN 24, creatinine 1.08. 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
[2022-02-02] MEDS: cefTRIAXone SODIUM 2,000 MG in DEXTROSE 5% 50 ML IV SCH (17:11)
[2022-02-02] MEDS: SIMVASTATIN 20 MG TAB PO SCH (20:14)
[2022-02-02 20:28] LABS: Appearance Urine Clear (Clear); Bilirubin Urine Negative (Negative); Blood Urine Negative (Negative); Color Urine Yellow; Glucose Urine UA Negative (Negative); Ketones Urine Trace (Negative); Leukocyte Esterase Urine Negative (Negative); Nitrite Urine Negative (Negative); Protein Urine Negative (Negative); Specific Gravity Urine 1.022 (1.000-1.030); Urobilinogen Urine Negative (Negative)
--- NOTE | 2022-02-02 20:37 | Hospitalist Progress Note ---
Date of Service February 02, 2022 Assessment & Plan (1) HFrEF (heart failure with reduced ejection fraction): Plan: Continue Lasix 20 mg IV twice daily Continue spironolactone 25 mg p.o. daily Aim for 1 to 1.5 L net negative balance per day. -ve 510ml in last 24 hours. Strict I&Os, daily weights Fluid restrict 1500ml (2) Cardiomyopathy: Plan: Confirmed non-ischemic on cardiac cath Tolerating Entresto and carvedilol Continue Entresto 26/24 mg p.o. twice daily Continue carvedilol 3.125 mg p.o. twice daily -> up titrated to 6.25mg PO (3) New onset of congestive heart failure: Plan: As above (4) Hypoxia: Plan: Suspect secondary to pulmonary edema due to heart failure. Aim O2 sats greater than 94%. (5) Elevated troponin I level: Plan: Type 2 NSTEMI - demand ischemia (6) Lower lobe pneumonia: Plan: Possible diagnosis. Suspect more likely atelectasis. Continue ceftriaxone and azithromycin (7) Diabetes mellitus: Plan: - On liraglutide and metformin at home, hold these while inpatient. - Given current glucose levels will reduce Lantus to 5 units twice daily. Novolog: --Goal BSG Range: Low 110 mg/dL, High 140 mg/dL --Correction Factor: 45 mg/dL/unit --Carbohydrate ratio = 15 g/unit --BSGs ACHS if eating, q6h if npo HbA1c 6.0. Given heart failure consider SGLT2 inhibitor as an outpatient. (8) Hypertension: Plan: Discontinue losartan and amlodipine in favor of more specific cardiomyopathy medications of Entresto and carvedilol as above. Diuretics with Lasix and spironolactone as above. (9) Hyperlipidemia: Plan: - Continue simvastatin (10) Mixed stress and urge urinary incontinence: Plan: - Continue Detrol, Mybetriq (11) Morbid obesity: Plan: Possibly some degree of obesity hypoventilation. Consider obstructive sleep apnea sleep study as an outpatient. Plan VTE Prophylaxis - SCDs, Lovenox for VTE PPx (will hold following cardiac cath) Diet - type 2 diabetes, heart healthy, low-sodium, fluid restrict to 1500 mL Disposition - continued admission on PCU Admission and Anticipated Discharge Date Admission Date: January 29, 2022 Subjective No chest pain, shortness of breath. Appears to be at her baseline. Medically stable for discharge awaiting her life vest at this time. Review of Systems Review of Systems: All systems reviewed & are unremarkable except as noted in Subjective Physical Exam Constitutional: WD/WN, vitals as above Respiratory: normal respiratory effort Auscultation: + crackles (Bibasal); breath sounds present, no diminished lung sounds, no rales, no rhonchi and no wheezes Cardiovascular: Rate/Rhythm: regular rate and regular rhythm Heart Sounds: no murmur Vessels: + JVD Extremities: + pedal edema (trace b/l pre-tibial pitting) Gastrointestinal (Abdomen): normal bowel sounds, soft, nontender, no hepatosplenomegaly Skin: no rashes, warm and dry Psychiatric: A+Ox3, euthymic affect Results & Data Results & Data ([facility]) Vital Signs (Past 12 Hours) Vital Signs Temp Pulse Resp BP Pulse Ox O2 Del Method 02/02/22 20:12 36.2 C L 68 124/91 94 Room Air 02/02/22 15:46 36.6 C 67 20 117/61 96 Room Air 02/02/22 12:20 36.7 C 68 18 101/65 92 Room Air PG Care Time/CCT Total # of Minutes Spent Total Time Spent with Patient: Total time spent is greater than 50% in coordination of care (as documented) at patient's floor/unit and/or counseling patient: Coding Level of Care Code 73085 Subseq Hosp Care Lvl 1 Diagnoses HFrEF (heart failure with reduced ejection fraction) I50.20 Cardiomyopathy I42.9 New onset of congestive heart failure I50.9 Hypoxia R09.02 Elevated troponin I level R77.8 Lower lobe pneumonia J18.9 Laterality: bilateral Pneumonia type: due to unspecified organism Diabetes mellitus E11.9 Diabetes mellitus type: type 2 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 insulin use: without extermination inspector use Diabetes mellitus complication status: without complication Hypertension I10 Hypertension type: unspecified Hyperlipidemia E78.5 Mixed stress and urge urinary incontinence N39.46 Morbid obesity E66.01 (1) Lower lobe pneumonia Laterality: bilateral Pneumonia type: due to unspecified organism Qualified Code(s): J18.9 - Pneumonia, unspecified organism (2) Diabetes mellitus Diabetes mellitus type: type 2 Diabetes mellitus correction insulin use: without correction use Diabetes mellitus complication status: without complication Qualified Code(s): E11.9 - Type 2 diabetes mellitus without com plications (3) Hypertension Hypertension type: unspecified Qualified Code(s): I10 - Essential (primary) hypertension
[2022-02-02 20:48] LABS: Creatinine Urine Random 166.1 mg/dl; Protein Creatinine Ratio Urine 0.1 (0-0.2); Total Protein Urine Random 12.6 mg/dl (0-11.9)
[2022-02-03 07:13] LABS: BUN Creatinine Ratio 24.5 (10-20); Calcium 8.8 mg/dl (8.5-10.1); Creatinine Clr Calc Pharmacy 73.9 ml/min; Est GFR (African American) 64.3 ml/min; Est GFR (Non-African American) 55.4 ml/min; Potassium 4.4 mmol/L (3.5-5.1)
[2022-02-03] MEDS: INSULIN ASPART PER UNIT SC SCH ×2 (08:05→11:44)
[2022-02-03] MEDS: carvediloL 6.25 MG TAB PO SCH (08:08)
[2022-02-03] MEDS: FUROSEMIDE INJ 20 MG/2 ML VIAL IV SCH (08:08)
[2022-02-03] MEDS: SPIRONOLACTONE 12.5 MG TAB PO SCH (08:09)
[2022-02-03] MEDS: MIRABEGRON ER 25 MG TAB PO SCH (08:09)
[2022-02-03] MEDS: TOLTERODINE TARTRATE LA 4 MG CAPCR PO SCH (08:09)
[2022-02-03] MEDS: AZITHROMYCIN 250 MG TAB PO SCH (08:09)
[2022-02-03] MEDS: CHOLECALCIFEROL 5,000 UNITS 125 MCG TAB PO SCH (08:09)
[2022-02-03] MEDS: ASPIRIN 81 MG ECTAB PO SCH (08:10)
[2022-02-03] MEDS: CYANOCOBALAMIN (B-12) 500 MCG TABLET PO SCH (08:10)
[2022-02-03] MEDS: VALSARTAN/SACUBITRIL 26/24MG TAB PO SCH (08:10)
[2022-02-03] MEDS: LANTUS PER UNIT CHARGE SQ SCH (08:16)
--- NOTE | 2022-02-03 10:34 | XRay Report ---
SINGLE VIEW CHEST CLINICAL HISTORY: Congestive heart failure. FINDINGS: An AP, portable, upright chest radiograph is compared to chest x-ray and chest CT dated 01/2022. The heart is markedly enlarged. The pulmonary vasculature is noncontrast. Chronic interstiti al thickening is similar to previous. There is mild bibasilar atelectasis. The lungs and pleural spac es are otherwise clear. No pneumothorax is seen. The skeletal structures are osteopenic. The bony tho rax is grossly intact. IMPRESSION: Cardiomegaly without radiographic evidence of congestive failure. ACT 112: Negative or not required by law. Electronically signed by: Reuben Pappas M.D. 02/03/2022 10:32 AM
--- NOTE | 2022-02-03 10:35 | Discharge Summary ---
Date of Service February 03, 2022 Principal Diagnosis Acute systolic congestive heart failure Discharge Exam General-alert and oriented x3, no fevers, no chills. Obese HEENT-head atraumatic and normocephalic, pupils equal and reactive to light, extraocular muscles intact Neck-no lymphadenopathy or thyromegaly, trachea midline Chest-clear to auscultation percussion. No rales wheezing or rhonchi Cardiac-regular rate and rhythm, normal S1 and S2, no murmurs Abdomen-normal bowel sounds, nontender, no hepatosplenomegaly Extremities-no cyanosis, clubbing, or edema Neuro-cranial nerves II through XII intact, motor and sensory function within normal limits, strength symmetrical , no focal deficits Psych-normal affect, normal mood Discharge Data Allergies Allergy/AdvReac Type Severity Reaction Status Date / Time MICHELLE Inhibitors Allergy Intermediate EYE Verified 01/29/22 16:40 SWELLING atorvastatin AdvReac Intermediate MUSCLE Verified 01/29/22 16:40 ACHES Consultations 01/29/22 16:38 ED Decision to Admit Stat 01/30/22 10:46 Consult Cardiology Routine Procedures Performed Operation Date: 02/01/22 09:30 Actual Procedures p Cineradiography w/Routine Exam - Bobby Ward MD, PhD s Cath, Right and Left Heart - Bobby Ward MD, PhD s Placement Art Occlusive Device - Bobby Ward MD, PhD s Ultrasound Vascular Access - Bobby Ward MD, PhD Ordered Studies 01/29/22 14:27 CT angio chest PE protocol Stat 02/01/22 07:00 CL Cath Imgs for PACS use only Routine Hospital Course (1) HFrEF (heart failure with reduced ejection fraction): No critical coronary artery disease seen on heart catheterization this admission. She is now on room air and stable. She is being fitted for the LifeVest at this time. She will go home today on oral Lasix (2) Cardiomyopathy: Nonischemic cardiomyopathy documented by left heart catheterization which was negative for critical coronary artery disease (3) New onset of congestive heart failure: Treated as above (4) Hypoxia: Present on admission. Now resolved (5) Elevated troponin I level: No evidence of acute VT (6) Lower lobe pneumonia: Ruled out (7) Diabetes mellitus: She will resume her previous diabetic management (8) Hypertension: Controlled with current medications (9) Hyperlipidemia: Controlled with current medications (10) Mixed stress and urge urinary incontinence: Controlled with current medications (11) Morbid obesity: Weight loss highly recommended Plan Home today on various cardiac medications as recommended by cardiology along with Lasix Total Time Total Time Spent Total Time Spent (In Minutes): 35 minutes Discharge Plan Discharge Items Patient Disposition: Home - Self-Care Reason For Visit: ACUTE/CHRONIC RESPIRATORY FAILURE WITH PULM EDEMA Discharge Diagnosis: Acute congestive heart failure Non-ischemic cardiomyopathy Possible bacterial pneumonia SARS-COV-2 PCR positive - suspected due to prior infection Activity: Per Instructions section Non-emergency contact: 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 An appointment has been scheduled for you with the [facility] Heart Failure Program within 7 days of discharge. Anticipate this visit to be 30-60 minutes long. Please expect a hvac commercial salesperson phone call from one of our nurses approximately 48 hours from discharge. They will also be placing an order for lab work to be completed 1-2 days prior to your heart failure follow up appointment. Please be sure to have this done so we can go over the results when you come in. Office Location The cardiology office building is located in front of the hospital at [address] [facility]. Bring the following with you to your follow-up doctor appointments: Please bring your daily weight log any discharge paperwork all of your medication bottles with you to this visit. ) Diet: Carb Consistent or DM2, Heart Healthy and Low Sodium (2gm) Addtl Attending Provider Instructions: You were admitted to [facility] from January 29 to 2021 due to shortness of breath. You were diagnosed with acute congestive heart failure. You were treated with diuretics (Lasix and spironolactone) and you are no longer requiring oxygen on discharge. Please continue Lasix and spironolactone as prescribed until follow-up with the heart failure clinic. Please call the heart failure clinic (Leanne Perez, number above) if you are getting more short of breath before your appointment. Please discuss starting an SGLT 2 inhibitor for your diabetes with your primary care provider as this medications can help reduce the risk of hospitalization from heart failure. See below for heart failure clinic discharge instructions. You are in heart failure due to your heart not pumping efficiently. Left ventricular ejection fraction on echocardiogram was 15-20%. You were started on carvedilol and Entresto for this. Cardiac catheterization ruled out coronary artery disease as a cause of this. Thyroid function was normal. Please follow up with cardiology (Dr Hollins) above for ongoing investigations and management of this. You were also diagnosed with possible pneumonia. Please finish a full course of antibiotics for this as prescribed with Augmentin for 3 days and azithromycin for 1 further day on discharge. Addtl Rnfa Provider Instructions: Heart failure clinic discharge instructions: Call your Primary Care doctor if any of the following symptoms or problems start or get worse: * Shortness of breath or difficulty breathing * Wake up at night short of breath * Chest pain * Cough * Swelling of your hands, feet, or legs * More fatigued or tired with your normal activity * Palpitations - sudden fast heart beats WEIGHT * Weigh yourself every morning after using the bathroom. * Use the same scale. * Wear the same amount of clothing. * Write your weight down on a chart. * Call your Primary Care doctor if you gain more than 2-3 pounds in 1-2 days. MEDICATIONS * Use this discharge instruction sheet for medication instructions. * Take your medications at the time your doctor ordered. * Do not skip a dose of your medicines. * If you miss a dose of medicine, take it as soon as possible, but DO NOT DOUBLE A DOSE. * Read your medicine information when you get home. * Know all of the side effects of your medicine. If in doubt, ask your pharmacist * Call your Primary Care doctor's office if you have any side effects. * Be sure all of your doctors know what medicine and herbs you take (including cold, flu, and herbal medicine). Take the following with you to your follow-up doctor appointments: * Weight Chart * Medication List * List of questions Do not drink excessive alcohol, beer or wine. Pending Studies at Discharge: No Stand-Alone Forms: [employer], Smoking Cessation Medications and DC Order Prescriptions: New carvedilol 6.25 mg Tablet 6.25 mg PO BID Qty: 60 0RF Entresto 24-26 mg Tablet 1 tab PO BID Qty: 60 0RF spironolactone 25 mg Tablet 12.5 mg PO QAM Qty: 30 0RF furosemide [Lasix] 40 mg tablet 40 mg PO DAILY Qty: 30 0RF azithromycin 250 mg tablet 250 mg PO DAILY 1 Days Qty: 1 0RF amoxicillin-pot clavulanate 875-125 mg tablet 1 tab PO BID 3 Days Qty: 6 0RF Continued mecobalamin (vitamin B12) 1,000 mcg tablet,disintegrating 1,000 mcg SL DAILY Qty: 90 3RF Rx Instructions: place tablet under tongue and allow to dissolve for at least30 secs before swallowing Victoza 3-Christiano 0.6 mg/0.1 mL (18 mg/3 mL) pen injector 1.8 mg SQ DAILY Qty: 3 3RF simvastatin 20 mg tablet 20 mg PO HS Qty: 90 3RF omega-3 fatty acids-fish oil [Fish Oil] 360-1,200 mg capsule 2 cap PO TID (DME) blood-glucose meter See Rx Instructions .Route Rx Instructions: Livongo brand- test blood sugar once daily (DME) pen needle, diabetic [BD Ultra-Fine Nuris Pen Needle] 32 gauge x 5/32" needle See Rx Instructions .ROUTE .MEDSUPPLY Qty: 100 3RF Rx Instructions: use 1 daily with Victoza metformin 1,000 mg tablet 1,000 mg PO BID Qty: 180 1RF aspirin [Mirta Low Dose Aspirin] 81 mg Tablet,Delayed Release (Dr/Ec) 81 mg PO QAM cholecalciferol (vitamin D3) [Vitamin D3] 125 mcg (5,000 unit) Tablet 125 mcg PO DAILY tolterodine 4 mg capsule,extended release 24hr 4 mg PO DAILY Rx Instructions: TAKE 1 CAPSULE BY MOUTH DAILY Myrbetriq 50 mg tablet extended release 24 hr 50 mg PO DAILY Rx Instructions: TAKE 1 TABLET BY MOUTH EVERY DAY Discontinued losartan 25 mg tablet 25 mg PO QAM Qty: 90 3RF amlodipine 10 mg tablet 10 mg PO QAM Qty: 90 1RF ibuprofen 200 mg Tablet 200 mg PO DIRECTED PRN (Reason: Pain) Discharge Orders: Discharge Order (Routine); Ordered 02/03/22 Ordered By: Sonny Johnson/Other Patient Handouts: High Blood Sugar (Hyperglycemia), Hypoglycemia (Low Blood Sugar), Managing Type 2 Diabetes Admission Data Admit Date/Time: 01/29/22 17:23 Attending Provider: Sonny Garcia Admit Provider: José Luis Hughes Primary Care Provider: Valdez Rankin V. 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
== END 2022-02-03 12:16 | disposition home or self-care (01) | DRG 280 ==
LOC: ED 11:59 → 2N 17:23 → SUATTDRO 17:23 → 2N 19:54 → 2S 02-01 10:38

== ENCOUNTER 2022-07-15 10:11 | Observation (INO) ==
[~2022-07-15 10:11] MED LIST changes: -AMLO10TA3 PO; -ASPEC81 PO; -ATEN-173 PO; +BUPIVACAINE 0.25% PF 30 ML VIAL ONE; -GLC500 PO; -GLIP-197 PO; -IBUP-1050 PO; +LIDOCAINE 1% LOCAL 20 ML VIAL ONE; -OMEG10007 PO; +VANCOMYCIN HCL 1000MG/20ML VIAL ONE; +WATER, STERILE FOR INJ 10 ML VIAL ONE; -[UNRECOGNIZED DRUG - OTHER] PO
[2022-07-15] MEDS ORDERED: MIDAZOLAM HCL 5 MG/ML 1 ML VIAL ONE (10:14)
[2022-07-15] MEDS ORDERED: ceFAZolin 330 MG/ML 1 GM VIAL ONE ×2 (10:15→10:58)
[2022-07-15] MEDS ORDERED: fentaNYL citrate PF 100 MCG/2 ML VIAL ONE (10:15)
--- NOTE | 2022-07-15 10:37 | History & Physical Bridge Note ---
Date of Service July 15, 2022 History & Physical Bridge Note I have examined the patient, reviewed the History & Physical and in the interval since the performance of the History & Physical I have noted the following changes of clinical significance: no changes noted
--- NOTE | 2022-07-15 10:37 | Pre Anesthesia Assessment ---
Date of Service July 15, 2022 Pre Sedation Assessment Vital Signs Temp Pulse Resp BP Pulse Ox O2 Del Method 07/15/22 10:26 36.7 C 74 18 130/75 94 Room Air Cardiovascular + regular rate and + regular rhythm Respiratory + respiratory effort normal Pre-Sedation Airway Assessment Smoking Status: Never smoker Hx Sleep Apnea: No Hx Difficult Intubation: No Short, Thick Neck: No Thyromental Distance: > or= 3.5 Finger Breadths Oral Cavity: + WNL Mallampati Class: II ASA: ASA3 NPO Status Date of Last Intake of Fluids: 07/14/22 Time of Last Intake of Fluids: 22:00 Date of Last Intake of Solid Food: 07/14/22 Time of Last Intake of Solid Foods: 22:00 Procedure Planning Contraindications for Sedation: none Current Medications Reviewed: Yes Notes The planned sedation has been discussed with the patient. Informed Consent was obtained. I have identified the patient, determined the appropriateness of sedation and have assessed the patient immediately prior to the procedure. All medicine(s) and interventions are by my order.
--- NOTE | 2022-07-15 10:52 | History & Physical Report ---
Date of Service July 15, 2022 Assessment & Plan (1) Cardiomyopathy: Plan: 1. The patient is a 67-year-old woman with a history of persistently low ejection fraction. Last echocardiogram demonstrated ejection fraction of 15 to 20%. She has [place] [employer] class II symptoms. She is on optimal medical therapy. She has not had a myocardial infarction in the past 40 days. She has not had revascularization in the past 90 days. She has an anticipated longevity greater than 1 year. As such she was felt to be a good candidate for a single-chamber ICD as primary prevention against sudden cardiac . Plan Single-chamber ICD History of Present Illness Chief Complaint: Cardiomyopathy Primary Care Provider: Valdez Rankin MD Mrs. Garcia is a 66-year-old female with a history of a Severe Cardiomyopathy (Dilated LV, LVEF was 15% to 20% when initially diagnosed), Chronic Systolic CHF, Resolved Severe Mitral Regurgitation, Normal Coronary Arteries on Cath, Dysmetabolic Syndrome X, Type 2 Diabetes Mellitus, Hypertens ion, Dyslipidemia, and Morbid Obesity who presents today for implant of an ICD. She has been wearing an external defibrillator Allergies Allergy/AdvReac Type Severity Reaction Status Date / Time MICHELLE Inhibitors Allergy Intermediate EYE Verified 05/31/22 14:11 SWELLING atorvastatin AdvReac Intermediate MUSCLE Verified 05/31/22 14:11 ACHES Home Medications Medication Instructions Recorded Confirmed Type aspirin 81 mg tablet,delayed 81 mg PO QAM 02/15/18 07/15/22 History release (Mirta Low Dose Aspirin) omega-3 fatty acids-fish oil 360 2 cap PO TID 11/21/18 07/15/22 History mg-1,200 mg capsule (Fish Oil) mecobalamin (vitamin B12) 1,000 1,000 mcg sublingual DAILY #90 tabs 07/30/19 07/15/22 Rx mcg disintegrating tablet,sublingual simvastatin 20 mg tablet 20 mg PO HS #90 tabs 08/03/21 07/15/22 Rx blood-glucose meter 11/12/21 05/31/22 History pen needle, diabetic 32 gauge x #100 ea 11/12/21 05/31/22 Rx 5/32" (BD Ultra-Fine Nuris Pen Needle) cholecalciferol (vitamin D3) 125 125 mcg PO DAILY 01/29/22 07/15/22 History mcg (5,000 unit) tablet (Vitamin D3) empagliflozin 10 mg tablet 10 mg PO DAILY #30 tabs 02/16/22 07/15/22 Rx (Jardiance) spironolactone 25 mg tablet 12.5 mg PO QAM #45 tabs 03/05/22 07/15/22 Rx liraglutide 0.6 mg/0.1 mL (18 mg/3 1.8 mg (0.3 mL) subcut DAILY #3 03/08/22 07/15/22 Rx mL) subcutaneous pen injector Boxes (card.iotoza 3-Christiano) carvedilol 25 mg tablet 25 mg PO BID #180 tabs 04/15/22 05/31/22 Rx metformin 1,000 mg tablet 1,000 mg PO BID #180 tabs 04/20/22 07/15/22 Rx furosemide 40 mg tablet (Lasix) 40 mg PO DAILY PRN weight gain #30 04/30/22 07/15/22 Rx tabs mirabegron 50 mg tablet,extended 50 mg PO DAILY #90 tabs 05/31/22 07/15/22 Rx release 24 hr (Myrbetriq) tolterodine 4 mg capsule,extended 4 mg PO DAILY #90 caps 05/31/22 07/15/22 Rx release 24 hr sacubitril 49 mg-valsartan 51 mg 1 tab PO BID #180 tabs 06/17/22 07/15/22 Rx tablet (Entresto) Past Med/Surg History Medical History (Updated 05/31/22 @ 14:44 by Brent Lopez PA-C) COVID-19 Diabetes mellitus, type 2 NIDDM Elevated troponin I level GERD (gastroesophageal reflux disease) OCCASIONALLY Hyperlipidemia Hypertension Hypoxia Hypoxia Mitral regurgitation Mitral valve insufficiency, acquired New onset of congestive heart failure Non-ST elevation SD (NSTEMI) Overactive bladder Surgical History History of arthroscopy RIGHT KNEE History of section X3 History of colonoscopy History of tonsillectomy S/P nasal surgery Family History Daughter Asthma Sister Breast cancer Father Heart disease Mother Hypertension Hypercholesteremia Brother Hypertension Other No pertinent family history Denies family history of Ovarian cancer Prostate cancer Myocardial infarction Colorectal cancer Social History Smoking Status: Never smoker Second Hand Exposure: No ( A CHILD); Hx Alcohol Use: No Hx Substance Use: No Preferred Language: Djiboutian Communication Ability: Effective Visual Impairment: No Limitations Hearing Ability: Normal 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 Oriented. Answered all questions appropriately Normal respiratory effort Regular rhythm No edema Results & Data Results & Data Vital Signs (Past 12 Hours) Vital Signs Temp Pulse Resp BP Pulse Ox O2 Del Method 07/15/22 10:26 36.7 C 74 18 130/75 94 Room Air
--- NOTE | 2022-07-15 11:43 | Post Anesthesia Assessment ---
Date of Service July 15, 2022 Post Sedation Assessment Vital Signs Temp Pulse Resp BP Pulse Ox O2 Del Method 07/15/22 10:26 36.7 C 74 18 130/75 94 Room Air Recovery Score Activity: Moves 4 extremities Respiration: Deep Breath/Cough Circulation: +/-20% PreAnes Value Consciousness: Arouseable (by name) Oxygen Saturation: > 92% On Room Air Discharge Sedation Level of Care: Fast Track Phase II Post Sedation Plan On clinical assessment, the patient appears to have tolerated the sedation without complications. Patient is recovering as anticipated. Patient will continue to be monitored by nursing and may be discharged when sedation discharge criteria are met per below protocol. Upon Completions of procedure up to 15 minutes continue every 5 minute vital signs and the P.A.R. score; then discharge to a Phase I or Fast Track to Phase II per the following guidelines: * Discharge Patient to appropriate Phase II area if PAR is 8 or greater or return to pre- procedure baseline. The post - procedure orders will be as directed. * If PAR score is less than 8 or not return to pre-procedure baseline then patient will follow Phase I monitoring till PAR is reached for Phase II. The Phase I may be done in procedure room or may call to secure a Phase I area. * If naloxone or flumazenil are used for reversal, hold in Phase I for continued monitoring from when last reversal dose was given for a minimum of 6 0 minutes or longer pending the nurse and/or physician discretion of patient condition before discharge to Phase II. Please call the Sedation Physician to re-evaluate and complete post-note for discharge to Phase II area. Do NOT discharge from procedure sedation or Phase 1 until post- sedation evaluation note is complete by procedure /sedation MD Sedation Discharge Instructions to be given to the patient at discharge to home.
--- NOTE | 2022-07-15 11:44 | Electrophysiology Report ---
Date of Service July 15, 2022 Electrophysiology Procedure Electrophysiology Procedure Report Procedure performed: Implantation of single-chamber ICD Staff director consumer: Josh Lord MD Indication: The patient is a 67-year-old woman with a history of a nonischemic cardiomyopathy. She has a persistently low ejection fraction less than 30%. She is on guideline directed medical therapy. She has [place] Heart Association class II symptoms. She has not had a revascularization in last 90 days or suffered a myocardial infarction in the past 40 days. She has an anticipated longevity greater than 1 year. Based on this information he was felt to be a good candidate for an ICD as primary prevention against sudden cardiac . Procedure in detail: The patient was informed of the risks benefits and alternatives to the intended procedure and she wished to proceed. She was taken to the electrophysiology suite in a fasting state. A preoperative antibiotic had been administered. The patient was monitored electrocardiographically throughout today's procedure and conscious sedation was administered per protocol. The left upper pectoral area is prepped and draped in usual sterile fashion. This area was anesthetized using subcutaneous administration of a xylocaine solution. An incision was made at this site and carried down to the prepectoralis fascia using sharp dissection. Electrocautery was also employed for dissection as well as for hemostasis. A device pocket was fashioned tissues above the pectoralis muscle. Subsequent to this maneuver the left axillary vein was accessed using modified Seldinger technique. Sheath was placed over guidewire at this site and used to facilitate passage of the ICD lead to the right ventricular apex under fluoroscopic guidance. Adequate sensing and threshold parameters were obtained prior to active fixation of the lead to the endocardial surface. The proximal portion of lead was then sutured to the prepectoralis fascia using nonabsorbable suture. The device pocket was irrigated with an antibiotic solution. The lead was then attached to the device. The device and lead were then placed in the pocket and the pocket was closed in 3 layers of absorbable suture. Steri-Strips and sterile dressing were applied. The device was tested noninvasively prior to conclusion the procedure. The patient tolerated procedure well there no immediate complications. Equipment used: New pulse generator: Director Of Leadership Development [employer]. Model number: [id number] serial number [id number] Right ventricular lead: Director Of Leadership Development [employer]. Model number: 6935M serial number [id number] Measured data: Right ventricular lead: R waves measured 5.6 mV. Pacing threshold 0.9 V at 0.5 ms with a pacing impedance of 538 ohms Impression: Successful implantation of single-chamber ICD [facility] Electrophysiology codes ICD Procedure 1: ICD: 37556 Insert single or dual ICD system PG Moderate Sedation Codes Moderate Sedation Codes Procedure 1: Sedation/Anesthesia: 83047 Mod Sedation by the same physician;Init15 Min Child Age 5 & Up Procedure 2: Sedation/Anesthesia: 74032 Mod Sedation by the same physician; Ea [id number] Minutes
[2022-07-15] MEDS ORDERED: oxyCODONE HCL IR 5 MG TAB (IMMEDIATE RELEASE) PO PRN (11:46)
[2022-07-15] MEDS: metFORMIN HCL 500 MG TAB PO SCH (17:18)
[2022-07-15] MEDS ORDERED: ceFAZolin 1000MG 1,000 MG/7.5 ML SYR IV ONE (19:00)
[2022-07-15] MEDS: carvediloL 25 MG TAB PO SCH (20:32)
[2022-07-15] MEDS: VALSARTAN/SACUBITRIL 51/49 MG TAB PO SCH (20:33)
[2022-07-15] MEDS: OMEGA-3 (PURIFIED FISH OIL) 1 GM CAP PO SCH (20:34)
[2022-07-15] MEDS ORDERED: SIMVASTATIN 20 MG TAB PO SCH (21:00)
[2022-07-16] MEDS: metFORMIN HCL 500 MG TAB PO SCH (07:49)
[2022-07-16] MEDS: OMEGA-3 (PURIFIED FISH OIL) 1 GM CAP PO SCH (07:50)
[2022-07-16] MEDS: carvediloL 25 MG TAB PO SCH (07:50)
[2022-07-16] MEDS: VALSARTAN/SACUBITRIL 51/49 MG TAB PO SCH (07:50)
[2022-07-16] MEDS ORDERED: TOLTERODINE TARTRATE LA 4 MG CAPCR PO SCH (09:00)
[2022-07-16] MEDS ORDERED: ASPIRIN 81 MG ECTAB PO SCH (09:00)
[2022-07-16] MEDS ORDERED: EMPAGLIFLOZIN 10 MG TAB PO SCH (09:00)
[2022-07-16] MEDS ORDERED: MIRABEGRON ER 25 MG TAB PO SCH (09:00)
[2022-07-16] MEDS ORDERED: SPIRONOLACTONE 12.5 MG TAB PO SCH (09:00)
--- NOTE | 2022-07-16 10:15 | XRay Report ---
TWO VIEW CHEST CLINICAL HISTORY: Pacemaker implantation. FINDINGS: PA and lateral chest radiographs are compared to study dated 02/03/2022 and correlated with chest CT dated 01/29/2022. A single lead cardiac AICD has been implanted and partially obscures the left mid chest. The lead projects over the right ventricle. The heart is enlarged. The pulmonary vasc ulature is noncongested. Chronic interstitial thickening is similar to previous. There is bibasilar s carring/atelectasis. The lungs and pleural spaces are otherwise clear. There is no pneumothorax. The skeletal structures are osteopenic. The bony thorax appears intact. Degenerative change is seen throu ghout the spine. IMPRESSION: 1. A single lead cardiac AICD has been implanted as above. No pneumothorax is identified post procedu re. 2. Cardiomegaly without radiographic evidence of congestive failure. 3. No airspace consolidation or pleural effusion is identified. ACT 112: Negative or not required by law. Electronically signed by: Reuben Pappas M.D. 07/16/2022 10:14 AM
--- NOTE | 2022-07-16 10:45 | Discharge Summary ---
Date of Service July 16, 2022 Admission HPI Per Admitting Provider Mrs. Garcia is a 66-year-old female with a history of a Severe Cardiomyopathy (Dilated LV, LVEF was 15% to 20% when initially diagnosed), Chronic Systolic CHF, Resolved Severe Mitral Regurgitation, Normal Coronary Arteries on Cath, Dysmetabolic Syndrome X, Type 2 Diabetes Mellitus, Hypertension, Dyslipidemia, and Morbid Obesity who presents today for implant of an ICD. She has been wearing an external defibrillator Principal Diagnosis nonischemic cardiomyopathy Discharge Exam at the time of discharge the device implant site was free of hematoma. No drainage. No significant erythema. Discharge Data Allergies Allergy/AdvReac Type Severity Reaction Status Date / Time MICHELLE Inhibitors Allergy Intermediate EYE Verified 05/31/22 14:11 SWELLING atorvastatin AdvReac Intermediate MUSCLE Verified 05/31/22 14:11 ACHES Procedures Performed Operation Date: 07/15/22 11:00 Actual Procedures p ICD Implant - Josh Lord MD Ordered Studies 07/15/22 06:45 EP Lab Images for PACS ONCE 07/15/22 10:58 CL Cath Imgs for PACS use only Routine Hospital Course (1) Cardiomyopathy: 1. The patient is a 67-year-old woman with a history of persistently low ejection fraction. Last echocardiogram demonstrated ejection fraction of 15 to 20%. She has [place] Heart Association class II symptoms. She is on optimal medical therapy. She has not had a myocardial infarction in the past 40 days. She has not had revascularization in the past 90 days. She has an anticipated longevity greater than 1 year. As such she was felt to be a good candidate for a single-chamber ICD as primary prevention against sudden cardiac . On the day of admission the patient underwent implantation of a single-chamber Medtronic ICD. No evident complication. Following day the implant site was well healed. Chest x-ray demonstrated stable lead position without pneumothorax. Device interrogation revealed normal device function. Plan Single-chamber ICD Total Time Total Time Spent Total Time Spent (In Minutes): 20 Discharge Plan Discharge Items Patient Disposition: Home - Self-Care Reason For Visit: NEW ICD IMPLANT Discharge Diagnosis: cardiomyopathy Condition on Discharge: Good Activity: Per Instructions section Activity Comment: left arm above shoulder behind neck for 6 week Lifting: No more than 10 pounds Lifting Comment: may use right arm unrestricted Bathing: Keep incision dry Bathing Comment: keep wound dry and Steri-Strips intact until follow-up Driving/Machine Use: Resume 1 day after discharge Non-emergency contact: Flight Coordinator Call non-emergency contact if: your symptoms worsen, your pain is concerning for you, you have a fever, your wound has increased redness and your wound has increased drainage Follow-up/Referrals: Valdez Rankin MD [Primary Care Provider] - 07/23/22 3:00 pm Diet: Carb Consistent or DM2 and Heart Healthy Addtl Attending Provider Instructions: none Pending Studies at Discharge: No Stand-Alone Forms: My [facility] [employer], Smoking Cessation Medications and DC Order Prescriptions: Continued mecobalamin (vitamin B12) 1,000 mcg tablet,disintegrating 1,000 mcg SL DAILY Qty: 90 3RF Rx Instructions: place tablet under tongue and allow to dissolve for at least30 secs before swallowing simvastatin 20 mg tablet 20 mg PO HS Qty: 90 3RF spironolactone 25 mg tablet 12.5 mg PO QAM Qty: 45 3RF Victoza 3-Christiano 0.6 mg/0.1 mL (18 mg/3 mL) pen injector 1.8 mg SQ DAILY Qty: 3 3RF metformin 1,000 mg tablet 1,000 mg PO BID Qty: 180 1RF Entresto 49-51 mg tablet 1 tab PO BID Qty: 180 3RF omega-3 fatty acids-fish oil [Fish Oil] 360-1,200 mg capsule 2 cap PO TID carvedilol 25 mg tablet 25 mg PO BID Qty: 180 3RF (DME) blood-glucose meter See Rx Instructions .Route Rx Instructions: Livongo brand- test blood sugar once daily (DME) pen needle, diabetic [BD Ultra-Fine Nuris Pen Needle] 32 gauge x 5/32" needle See Rx Instructions .ROUTE .MEDSUPPLY Qty: 100 3RF Rx Instructions: use 1 daily with Victoza Jardiance 10 mg tablet 10 mg PO DAILY Qty: 30 5RF Hold Instructions: elevated creatinine furosemide [Lasix] 40 mg tablet 40 mg PO DAILY PRN (Reason: weight gain) Qty: 30 3RF Myrbetriq 50 mg tablet extended release 24 hr 50 mg PO DAILY Qty: 90 2RF Hold Instructions: trying Gentesa Rx Instructions: TAKE 1 TABLET BY MOUTH EVERY DAY tolterodine 4 mg capsule,extended release 24hr 4 mg PO DAILY Qty: 90 2RF Rx Instructions: TAKE 1 CAPSULE BY MOUTH DAILY aspirin [Mirta Low Dose Aspirin] 81 mg Tablet,Delayed Release (Dr/Ec) 81 mg PO QAM cholecalciferol (vitamin D3) [Vitamin D3] 125 mcg (5,000 unit) Tablet 125 mcg PO DAILY Discharge Orders: Discharge Order (Routine); Ordered 07/16/22 Ordered By: Josh Lord Admission Data Admit Date/Time: 07/15/22 11:24 Attending Provider: Josh Lord Admit Provider: Josh Lord Primary Care Provider: Valdez Rankin V. Other Interventions: Discharge Summary Assessment (RN) Last Done: 07/16/22 11:22 Coding Level of Care Code 51198 IN/OBS DISCH 30 MIN/LESS Diagnoses Cardiomyopathy I42.9
== END 2022-07-16 12:08 | disposition home or self-care (01) ==
LOC: EP 10:11 → 2S 10:11
PROC: EPB.ICD (2022-07-15 11:00)

== ENCOUNTER 2024-10-16 05:31 | Observation (INO) ==
--- NOTE | 2024-09-12 12:42 | PAT Medication Instructions ---
Medication Instructions Date of Service September 12, 2024 Home Medications Medication Instructions Recorded pen needle, diabetic 32 gauge x #100 ea 01/24/23" (BD Ultra-Fine Nuris Pen Needle) furosemide 40 mg tablet (Lasix) 40 mg PO DAILY PRN weight gain #90 05/09/23 tabs metformin 1,000 mg tablet 500 mg (1/2 x 1,000 mg) PO BID #90 10/28/23 tabs simvastatin 20 mg tablet 20 mg PO HS #90 tabs 11/22/23 tolterodine 4 mg capsule,extended 4 mg PO QAM #90 caps 02/28/24 release 24 hr sacubitril 97 mg-valsartan 103 mg 0.5 tab PO BID #180 tabs 07/20/24 tablet (Entresto) empagliflozin 10 mg tablet 10 mg PO QAM #90 tabs 08/03/24 (Jardiance) tirzepatide 15 mg/0.5 mL 15 mg (0.5 mL) subcut Q7D 30 days 08/21/24 subcutaneous pen injector #2 mL carvedilol 12.5 mg tablet 12.5 mg PO BID #180 tabs 08/28/24 vibegron 75 mg tablet (Gemtesa) 75 mg PO DAILY #90 tabs 08/31/24 furosemide 40 mg tablet (Lasix) 40 mg PO DAILY PRN aspirin 81 mg tablet,delayed release (Mirta Low Dose Aspirin) 81 mg PO Q2D urea 20 % topical cream 1 applic topical DAILY PRN mecobalamin (vitamin B12) 1,000 mcg disintegrating tablet,sublingual 1,000 mcg sublingual QAM metformin 1,000 mg tablet 500 mg (1/2 x 1,000 mg) PO BID simvastatin 20 mg tablet 20 mg PO HS tolterodine 4 mg capsule,extended release 24 hr 4 mg PO QAM cetirizine 10 mg tablet 10 mg PO DAILY PRN cholecalciferol (vitamin D3) 50 mcg (2,000 unit) capsule 150 mcg PO DAILY diclofenac sodium 1 % gel topical kit 2 g topical QID PRN sacubitril 97 mg-valsartan 103 mg tablet (Entresto) 0.5 tab PO BID empagliflozin 10 mg tablet (Jardiance) 10 mg PO QAM tirzepatide 15 mg/0.5 mL subcutaneous pen injector 15 mg (0.5 mL) subcut Q7D carvedilol 12.5 mg tablet 12.5 mg PO BID vibegron 75 mg tablet (Gemtesa) 75 mg PO DAILY docusate sodium 50 mg capsule (Stool Softener) 50 mg PO DAILY PRN STOP 7 days before surgery tirzepatide 15 mg/0.5 mL subcutaneous pen injector 15 mg (0.5 mL) subcut Q7D STOP 3 days before surgery empagliflozin 10 mg tablet (Jardiance) 10 mg PO QAM ASK your prescriber and surgeon aspirin 81 mg tablet,delayed release (Mirta Low Dose Aspirin) 81 mg PO Q2D STOP taking 24 hours before surgery urea 20 % topical cream 1 applic topical DAILY PRN diclofenac sodium 1 % gel topical kit 2 g topical QID PRN DO NOT take the morning of surgery furosemide 40 mg tablet (Lasix) 40 mg PO DAILY PRN mecobalamin (vitamin B12) 1,000 mcg disintegrating tablet,sublingual 1,000 mcg sublingual QAM metformin 1,000 mg tablet 500 mg (1/2 x 1,000 mg) PO BID tolterodine 4 mg capsule,extended release 24 hr 4 mg PO QAM cetirizine 10 mg tablet 10 mg PO DAILY PRN cholecalciferol (vitamin D3) 50 mcg (2,000 unit) capsule 150 mcg PO DAILY sacubitril 97 mg-valsartan 103 mg tablet (Entresto) 0.5 tab PO BID vibegron 75 mg tablet (Gemtesa) 75 mg PO DAILY docusate sodium 50 mg capsule (Stool Softener) 50 mg PO DAILY PRN Take morning of surgery With a small sip of water, OTHERWISE NOTHING TO EAT OR DRINK AFTER MIDNIGHT: carvedilol 12.5 mg tablet 12.5 mg PO BID Take evening before surgery metformin 1,000 mg tablet 500 mg (1/2 x 1,000 mg) PO BID simvastatin 20 mg tablet 20 mg PO HS sacubitril 97 mg-valsartan 103 mg tablet (Entresto) 0.5 tab PO BID carvedilol 12.5 mg tablet 12.5 mg PO BID Other Notes If you have any questions please call us at [phone] or [phone] or [phone] or [phone]
--- NOTE | 2024-09-18 12:51 | Anesthesiology Consultation ---
Date of Service September 18, 2024 Assessment & Plan (1) Encounter for pre-operative examination: - Check BSG DOS - Infectious disease screening: Per assessment on 09/11/24- No known recent infectious disease contacts or current infectious disease symptoms. - Outpatient joint assessment: Pt currently scheduled for inpatient pathway. If surgeon requests review for outpatient joint pathway, patient is not recommended candidate for outpatient joint program from anesthesia standpoint based on available information. - GLP-1 medication instructions: Patient informed by PAT to stop 7 days prior to surgery- voiced understanding. DOS 10/16. Advised last dose to be 10/04. - Patient acceptable risk for surgery pending surgeon-ordered cardiology ([facility] [place]05) and PCP ([facility], appt 10/09) preop evaluations. Chart Review Chart Review: Patient seen in Pre Admission Testing Teaching & Discussion Pre-Anesthesia Teaching/Discussion Notes: Instructed NPO after midnight before surgery,except medications with 15 cc of water. Medication instructions provided according to the PAT guidelines. History Surgery Operation Date: 10/16/24 07:00 Proposed Procedures p Right Total Knee Arthroplasty - Wang Matthew Zhang MD Height/Weight Height: 5 ft 3.5 in Weight: 126.5 kg Allergies Allergy/AdvReac Type Severity Reaction Status Date / Time MICHELLE Inhibitors Allergy Intermediate Eye Verified 09/12/24 10:51 swelling atorvastatin AdvReac Intermediate Muscle Verified 09/12/24 10:51 aches Medications Home Medications Medication Instructions Recorded Confirmed Last Taken blood-glucose meter 11/12/21 08/21/24 Unknown pen needle, diabetic 32 gauge x #100 ea 01/24/23 08/21/24 Unknown 5/32" (BD Ultra-Fine Nuris Pen Needle) furosemide 40 mg tablet (Lasix) 40 mg PO DAILY PRN weight gain #90 05/09/23 09/11/24 06/21/23 tabs aspirin 81 mg tablet,delayed 81 mg PO Q2D 06/02/23 09/11/24 07/03/23 release (Mirta Low Dose Aspirin) urea 20 % topical cream 1 applic topical DAILY PRN feet 06/03/23 09/11/24 Unknown mecobalamin (vitamin B12) 1,000 1,000 mcg sublingual QAM 06/29/23 09/11/24 07/04/23 mcg disintegrating tablet,sublingual metformin 1,000 mg tablet 500 mg (1/2 x 1,000 mg) PO BID #90 10/28/23 09/11/24 Unknown tabs simvastatin 20 mg tablet 20 mg PO HS #90 tabs 11/22/23 09/11/24 Unknown tolterodine 4 mg capsule,extended 4 mg PO QAM #90 caps 02/28/24 09/11/24 Unknown release 24 hr cetirizine 10 mg tablet 10 mg PO DAILY PRN Allergic symtoms 07/16/24 09/11/24 Unknown cholecalciferol (vitamin D3) 50 150 mcg PO DAILY 07/16/24 09/11/24 Unknown mcg (2,000 unit) capsule diclofenac sodium 1 % gel topical 2 g topical QID PRN Pain 07/16/24 09/11/24 Unknown kit sacubitril 97 mg-valsartan 103 mg 0.5 tab PO BID #180 tabs 07/20/24 09/11/24 Unknown tablet (Entresto) empagliflozin 10 mg tablet 10 mg PO QAM #90 tabs 08/03/24 09/11/24 Unknown (Jardiance) tirzepatide 15 mg/0.5 mL 15 mg (0.5 mL) subcut Q7D 30 days 08/21/24 09/11/24 Unknown subcutaneous pen injector #2 mL carvedilol 12.5 mg tablet 12.5 mg PO BID #180 tabs 08/28/24 09/11/24 Unknown vibegron 75 mg tablet (Gemtesa) 75 mg PO DAILY #90 tabs 08/31/24 09/11/24 Unknown docusate sodium 50 mg capsule 50 mg PO DAILY PRN Constipation 09/11/24 09/11/24 Unknown (Stool Softener) Past Medical History Medical History AICD (automatic cardioverter/defibrillator) present Follows with [facility] Cardiomyopathy Nonischemic CKD (chronic kidney disease) Diabetes mellitus NIDDM GERD (gastroesophageal reflux disease) Occasional Heart failure with mildly reduced ejection fraction (HFmrEF) Follows with [facility] History of colon polyps History of COVID-19 (2021) Resolved HLD (hyperlipidemia) HTN (hypertension) Mitral regurgitation Mitral valve insufficiency, acquired 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 Per records, patient unaware Overactive bladder Pulmonary hypertension Umbilical hernia Exercise / Class Metabolic Activity III < 4 Walking/Shop/Light housework Past Family History Family History Daughter Asthma Sister Breast cancer Father Heart disease Mother Hypertension Hypercholesteremia Brother Hypertension Other No pertinent family history Denies family history of Ovarian cancer Prostate cancer Myocardial infarction Colorectal cancer Past Surgical History Surgical History History of arthroscopy Right knee History of cardiac cath 2021- no stents History of section x3 History of colonoscopy History of tonsillectomy Presence of automatic cardioverter/defibrillator (AICD) S/P nasal surgery Past Anesthesia History No Hx of Anesthesia Complications and No Family Hx of Anesthesia Complications History of PONV No Hx of Motion Sickness and History of PONV Social History Smoking Status: Never smoker Do You Dip or Chew Tobacco: No Hx Alcohol Use: No (hx none for many years) Hx Substance Use: No substance use type: does not use Review of Systems Patient denies chest pain, shortness of breath, fever, chills, cough, wheezing. Physical Exam Vital Signs BP 100/69 P 81 TEMP 98.1 SP02 95%RA RESP 16 Physical Full cervical extension range of motion. Full TMJ range of motion. TMD > 3.5 finger breaths Mallampati Score III Dentition: missing molar, + caps Lungs: clear throughout to auscultation Cardiac: regular rate and rhythm, no murmurs noted Spine: normal Carotid arteries: negative bruit Extremities: no LE edema Lab Results Anesthesia Preop Results Results Anesthesia Widget: WBC 6.85 K/ul (4.8-10.8) 09/18/24 Hgb 11.9 g/dl (12.0-16.0) L 09/18/24 Hct 36.2 % (37.0-47.0) L 09/18/24 Plt 203 K/uL (130-400) 09/18/24 Na 141 mmol/L (136-145) 09/18/24 K 4.9 mmol/L (3.5-5.1) 09/18/24 Cl 106 mmol/L (98-107) 09/18/24 CO2 28 mmol/L (21-32) 09/18/24 BUN 28 mg/dl (6-23) H 09/18/24 Creat 1.45 mg/dl (0.6-1.2) H 09/18/24 Glucose Level 109 mg/dl (70-99(Fasting)) H 09/18/24 PT 10.1 Seconds (9.0-12.0) 09/18/24 PTT 26 Seconds (21-31) 09/18/24 INR 0.9 (0.9-1.1) 09/18/24 HA1c 5.9 % (4.5-5.6) H 09/18/24 Urine Color Yellow 09/18/24 Urine Appearance Clear (Clear) 09/18/24 Urine pH 5.5 (4.5-7.5) 09/18/24 Urine Specific Victor 1.036 (1.000-1.030) H 09/18/24 Urine Protein Trace (Negative) H 09/18/24 Urine Glucose (UA) 3+ (Negative) H 09/18/24 Urine Ketones Trace (Negative) H 09/18/24 Urine Blood Negative (Negative) 09/18/24 Urine Nitrite Negative (Negative) 09/18/24 Urine Bilirubin Negative (Negative) 09/18/24 Urine Urobilinogen Negative (Negative) 09/18/24 Urine Leukocyte Esterase Trace (Negative) H 09/18/24 Urine WBC (Auto) 6-10 /hpf (0-5) H 09/18/24 Urine RBC (Auto) 0-2 /hpf (0-2) 09/18/24 Urine Hyaline Casts (Auto) 0-2 /lpf (0-2) 09/18/24 Urine Epithelial Cells (Auto) 6-10 /hpf (0-2) H 09/18/24 Urine Bacteria (Auto) 1+ (None Seen) H 09/18/24 Blood Type O Positive 09/18/24 Antibody Screen NEGATIVE 09/18/24 Testing Laboratory Results Surgeon's office made aware of abnormal UA* Electrocardiogram Date: 09/18/24 NSR at 80bpm. NS TWA. Chest X-Ray Date: 09/18/24 FINDINGS: Cardiac silhouette is upper limits of normal in size. Left subclavian pacer/AICD again noted. No pneumothorax, pleural effusion or airspace consolidation. Bones appear grossly intact. Spondylitic spurring of the spine. IMPRESSION: No acute process of the chest. Echocardiogram Date: 09/19/24 EF 45-50%. Grade I DD. Mild global HK. No thrombus. Moderate LAD. Cardiac Catheterization Date: 02/01/22 Summary: Right heart cath consistent with persistent mild volume overload Essentially normal coronary arteries Continue optimized medical therapy to achieve euvolemia. Guideline directed medical therapy for nonischemic cardiomyopathy. Other Testing AICD Check Date: 08/10/24 Battery longevity 9.1 years. ACID SPLICER <0.1%. "Normal device function. No events or therapies. No significant ventricular pacing. Elevated OptiVol"
[2024-10-16] MEDS: CeleBREX 200 MG CAP PO SCH ×2 (06:16→20:09)
[2024-10-16] MEDS: LR 500ML BOLUS, THEN 15ML/HR IV SCH (06:16)
[2024-10-16] MEDS: ACETAMINOPHEN 500 MG TAB PO SCH ×2 (06:16→14:32)
[2024-10-16] MEDS: LR 60ML/HR IV SCH (06:17)
[2024-10-16] MEDS ORDERED: PROPOFOL IV EMULSION 10 MG/ML 20 ML VIAL IV ONE (06:19)
[2024-10-16] MEDS ORDERED: MIDAZOLAM HCL 1 MG/ML 2ML VIAL ONE (06:19)
[2024-10-16] MEDS ORDERED: GLYCOPYRROLATE 0.2 MG/ML VIAL ONE (06:19)
[2024-10-16] MEDS ORDERED: LIDOCAINE 2% 2 ML VIAL/AMP(20MG/ML) INFIL ONE (06:19)
[2024-10-16] MEDS ORDERED: KETAMINE HCL 10MG/ML SYR ONE (06:23)
[2024-10-16] MEDS ORDERED: DexMEDEtomidine HCL IV 100 MCG/ML VIAL IV ONE (06:27)
[2024-10-16] MEDS ORDERED: PROPOFOL IV EMULSION 10 MG/ML 100 ML VIAL IV ONE (06:32)
[2024-10-16] MEDS ORDERED: BUPIVACAINE 0.5 % 5 MG/1 ML PF 10ML VIAL ONE (06:34)
[2024-10-16] MEDS ORDERED: ROPIVACAINE 0.5% 5 MG/ML 30 ML VIAL ONE (06:34)
--- NOTE | 2024-10-16 06:34 | History & Physical Bridge Note ---
Date of Service October 16, 2024 History & Physical Bridge Note I have examined the patient, reviewed the History & Physical and in the interval since the performance of the History & Physical I have noted the following changes of clinical significance: no changes noted
[2024-10-16] MEDS ORDERED: LIDOCAINE 5% OINT 30 GM TUBE ONE (06:40)
[2024-10-16] MEDS: TRANEXAMIC ACID 1,000 MG **IV Pre-op IV SCH (06:46)
[2024-10-16] MEDS: ceFAZolin 3000MG 3,000 MG/72.5 ML BAG IV SCH (07:20)
[2024-10-16] MEDS ORDERED: ePHEDrine sulfate 50 MG/5 ML SYR ONE (07:46)
[2024-10-16] MEDS: ORTHO JOINT ANESTHETIC ONE (08:05)
[2024-10-16] MEDS ORDERED: DEXAMETHASONE SOD INJ 4 MG/ML VIAL ONE (08:11)
[2024-10-16] MEDS ORDERED: ONDANSETRON INJ 2 MG/ML 2 ML VIAL ONE (08:11)
[2024-10-16] MEDS: ROPIV 0.5% 246mg, Ketorolac 30mg, EPINEPHrine 0.5mg in NSS INFIL SCH (08:53)
[2024-10-16] MEDS ORDERED: ATROPINE SULFATE 0.1 MG/ML 10ML SYR IV PRN (09:19)
[2024-10-16] MEDS ORDERED: ONDANSETRON INJ 2 MG/ML 2 ML VIAL IV PRN ×2 (09:19→12:37)
[2024-10-16] MEDS ORDERED: PROMETHAZINE HCL 6.25 MG in SODIUM CHLORIDE 0.9% 50 ML IV PRN (09:19)
[2024-10-16] MEDS ORDERED: HYDROmorphone INJ 2 MG/ML SYR/VIAL IV PRN (09:19)
--- NOTE | 2024-10-16 09:36 | Post Operative Brief Note ---
Immediate Post Op Note Date of Surgery October 16, 2024 Pre & Post Diagnosis Operation Date: 10/16/24 07:00 Pre-Op Diagnosis: Right Knee Osteoarthritis Post-Op Diagnosis: Right Knee Osteoarthritis I identified the patient and participated in the time-out.: Yes Procedure Operation Date: 10/16/24 07:00 Actual Procedures p Right Total Knee Arthroplasty(Right) - Wang Zhang MD Surgeon Wang Zhang MD Layout Man Kera Saldivar PA-C (No fellow avail) Estimated Blood Loss 50 Findings Consistent with Post-Op Diagnosis Fluids 1200 cc Specimens Right knee contents Anesthesia Type MAC Spinal Regional Complications none
--- NOTE | 2024-10-16 09:52 | Operative Report ---
Post Operative Report Pre & Post Diagnosis Operation Date: 10/16/24 07:00 Pre-Op Diagnosis: Right Knee Osteoarthritis Post-Op Diagnosis: Right Knee Osteoarthritis I identified the patient and participated in the time-out.: Yes Procedure Operation Date: 10/16/24 07:00 Actual Procedures p Right Total Knee Arthroplasty(Right) - Wang Matthew Zhang MD Surgeon Kelly Saldivar PA-C Driver Kera Saldivar PA-C (No fellow avail) Estimated Blood Loss 50 Findings Consistent with Post-Op Diagnosis Specimens right knee joint Description of Procedure Pt was taken to operating room and properly positioned for procedure. Refer to anesthesia's note for anesthesia used. Pt was given pre-op antibiotics. Prepped and draped in sterile fashion. I was present during the entire case and assisted with positioning, instrumentation, closure and dressings. Please see surgeon's op report for further detail. Pt was awake and transferred to PACU in stable condition I attest to the content of the Intraoperative Record and any orders documented therein. Any exceptions are noted below.
--- NOTE | 2024-10-16 10:27 | XRay Report ---
XR knee RT 1 or 2V routine CLINICAL HISTORY: Surgical Post Op COMPARISON: 11/17/2023 FINDINGS: Right knee prosthesis shows no hardware complication. There is expected soft tissue gas. IMPRESSION: Unremarkable postoperative exam. ACT 112: Negative or not required by law. Electronically signed by: Moris Fox M.D. 10/16/2024 10:25 AM
--- NOTE | 2024-10-16 11:41 | Anesthesiology Progress Note ---
Date of Service October 16, 2024 Anesthesia Post Procedure Vital Signs Vital Signs: Temp Pulse Resp BP BP Pulse Ox O2 Del Method 10/16/24 11:30 66 12 135/87 98 Room Air 10/16/24 11:15 63 14 154/88 H 94 Room Air 10/16/24 11:00 64 12 153/83 H 93 Room Air 10/16/24 10:45 71 14 136/91 92 Room Air 10/16/24 10:30 36.4 C L 66 16 139/72 95 Room Air 10/16/24 10:20 61 13 136/76 97 Oxymask 10/16/24 10:10 66 17 125/78 96 Oxymask 10/16/24 10:00 63 21 136/78 95 Oxymask 10/16/24 09:50 36.3 C L 62 12 93/70 L 96 Room Air 10/16/24 05:51 36.6 C 74 20 126/78 96 Room Air O2 Flow Rate 10/16/24 11:30 10/16/24 11:15 10/16/24 11:00 10/16/24 10:45 10/16/24 10:30 10/16/24 10:20 2 10/16/24 10:10 4 10/16/24 10:00 4 10/16/24 09:50 10/16/24 05:51 Transfer of Care Handoff Completed per policy Notes Mental Status: alert / awake / arousable and participated in evaluation Nausea / Vomiting: adequately controlled Pain: adequately controlled Airway Patency, RR, SpO2: stable & adequate BP & HR: stable & adequate Hydration State: stable & adequate Neuraxial Anesthesia: was administered and sensory block is resolving Anesthetic Complications: no major complications apparent and Pt Satisfied with anesthetic care
[2024-10-16] MEDS ORDERED: PHARMACY GLYCEMIC MGMT CONSULT PRN (12:37)
[2024-10-16] MEDS ORDERED: diphenhydrAMINE Capsule 25 MG CAP PO PRN (12:37)
[2024-10-16] MEDS ORDERED: METOCLOPRAMIDE HCL INJ 5 MG/ML 2 ML VIAL IV PRN (12:37)
[2024-10-16] MEDS ORDERED: MAGNESIUM HYDROXIDE SUSP 30 ML UDC PO PRN (12:37)
[2024-10-16] MEDS ORDERED: NON-FORMULARY MEDICATION (Docusate Sodium [Stool Softener] 50 mg Capsule) PO PRN (12:37)
[2024-10-16] MEDS ORDERED: HYDROmorphone INJ 0.5 MG/0.5 ML SYR IV PRN (12:37)
[2024-10-16] MEDS ORDERED: NALOXONE HCL 0.4 MG/1 ML VIAL/CARP IV PRN (12:37)
[2024-10-16] MEDS ORDERED: CARBOHYDRATES FOR HYPOGLYCEMIA PO PRN (13:00)
[2024-10-16] MEDS ORDERED: GLUCOSE 40% GEL 15 GM TUBE PO PRN (13:00)
[2024-10-16] MEDS ORDERED: GLUCOSE 10 TAB/TUBE PO PRN (13:00)
[2024-10-16] MEDS ORDERED: GLUCAGON FOR INJ 1 MG VIAL SQ PRN (13:00)
[2024-10-16] MEDS ORDERED: DEXTROSE 50% 50 ML SYRINGE IV PRN (13:00)
--- NOTE | 2024-10-16 13:04 | Hospitalist Consultation ---
Date of Consultation October 16, 2024 Assessment & Plan (1) S/P right knee surgery: (2) Diabetes mellitus: (3) Heart failure with mildly reduced ejection fraction (HFmrEF): (4) Overactive bladder: Plan Brenda is a 69-year-old female with a past medical history of diabetes, HFmrEF, overactive bladder, HTN and knee pain who presents for elective knee surgery with Dr. Zhang. hospitalist consulted for medical management. # S/p knee surgery Pain control / abx / dvt ppx per primary team EBL 50 monitor AM labs # DMT2 Home meds: metformin BID, jardiance and Mounjaro (last dose 10/04) Pharmacy glycemic consult per primary team # CHF | HTN Continue Entresto Continue Coreg lasix prn - Reports she is only used as 5 times and she was given a prescription # OAB - continue tolterodine (or formulary equivalent) and Gemtesa Thank you for allowing us to participate in the care of this patient, please reach out with any questions or concerns. Hospital medicine will continue to follow for AM labs. Supervising Physician Co-Signing Physician Notes I personally examined the patient and verified all wyatt points of history and exam, discussed case, and agree with decision making with Kika Valentin PA-C No acute complaints. Feeling okay. Vitals noted, in general she is awake and alert pleasant no distress. HEENT normocephalic atraumatic mucous membranes moist. Breathing unlabored no accessory muscle use good effort. Skin without rashes pallor or icterus. Neuro without focal deficits. Diabetes/CHF/hypertensionappears clinically stable. Overall as above. History of Present Illness Reason for Consultation: medical management Requesting Physician: Dr. Zhang Attending Physician: Wang Zhang MD History of Present Illness Brenda is a 69-year-old female with a past medical history of diabetes, HFmrEF, overactive bladder, HTN and knee pain who presents for elective knee surgery with Dr. Zhang. seen postoperatively and doing well. Pain in her knee only when she moves it. Reports that her knee feels good. Has not had anything to eat or drink. Allergies Allergy/AdvReac Type Severity Reaction Status Date / Time HA Inhibitors Allergy Intermediate Eye Verified 10/16/24 05:44 swelling atorvastatin AdvReac Intermediate Muscle Verified 10/16/24 05:44 aches Home Medications Medication Instructions Recorded Confirmed Type blood-glucose meter 11/12/21 08/21/24 History pen needle, diabetic 32 gauge x #100 ea 01/24/23 08/21/24 Rx 5/32" (BD Ultra-Fine Nuris Pen Needle) furosemide 40 mg tablet (Lasix) 40 mg PO DAILY PRN weight gain #90 05/09/23 10/16/24 Rx tabs aspirin 81 mg tablet,delayed 81 mg PO Q2D 06/02/23 10/16/24 History release (Mirta Low Dose Aspirin) urea 20 % topical cream 1 applic topical DAILY PRN feet 06/03/23 10/16/24 History mecobalamin (vitamin B12) 1,000 1,000 mcg sublingual QAM 06/29/23 10/16/24 History mcg disintegrating tablet,sublingual metformin 1,000 mg tablet 500 mg (1/2 x 1,000 mg) PO BID #90 10/28/23 10/16/24 Rx tabs simvastatin 20 mg tablet 20 mg PO HS #90 tabs 11/22/23 10/16/24 Rx cetirizine 10 mg tablet 10 mg PO DAILY PRN Allergic symtoms 07/16/24 10/16/24 History cholecalciferol (vitamin D3) 50 150 mcg PO DAILY 07/16/24 10/16/24 History mcg (2,000 unit) capsule diclofenac sodium 1 % gel topical 2 g topical QID PRN Pain 07/16/24 10/16/24 History kit sacubitril 97 mg-valsartan 103 mg 0.5 tab PO BID #180 tabs 07/20/24 10/16/24 Rx tablet (Entresto) empagliflozin 10 mg tablet 10 mg PO QAM #90 tabs 08/03/24 10/16/24 Rx (Jardiance) carvedilol 12.5 mg tablet 12.5 mg PO BID #180 tabs 08/28/24 10/16/24 Rx vibegron 75 mg tablet (Gemtesa) 75 mg PO DAILY #90 tabs 08/31/24 10/16/24 Rx docusate sodium 50 mg capsule 50 mg PO DAILY PRN Constipation 09/11/24 10/16/24 History (Stool Softener) psyllium seed (sugar) oral powder 1 tbsp PO DAILY 10/05/24 10/16/24 History (Metamucil (sugar) oral powder) tirzepatide 15 mg/0.5 mL 15 mg subcut Q7D 10/16/24 10/16/24 History subcutaneous pen injector (Mounjaro) tolterodine 4 mg capsule,extended 4 mg PO QAM 10/16/24 10/16/24 History release 24 hr (Detrol LA) Patient History Medical History (Updated 10/16/24 @ 13:36 by Jeny Valentin PA-C) Encounter for pre-operative examination CKD (chronic kidney disease) Mitral valve insufficiency, acquired Diabetes mellitus NIDDM Umbilical hernia Mixed stress and urge urinary incontinence HTN (hypertension) HLD (hyperlipidemia) Cardiomyopathy Nonischemic Pulmonary hypertension History of COVID-19 (2021) Resolved History of colon polyps Mitral regurgitation Heart failure with mildly reduced ejection fraction (HFmrEF) Follows with [facility] Neoplasm of uncertain behavior of skin Per records, patient unaware Overactive bladder GERD (gastroesophageal reflux disease) Occasional Surgical History (Updated 10/16/24 @ 13:36 by Jeny Valentin PA-C) Presence of automatic cardioverter/defibrillator (AICD) History of cardiac cath 2021- no stents S/P nasal surgery History of section x3 History of arthroscopy Right knee History of colonoscopy History of tonsillectomy Family History Daughter Asthma Sister Breast cancer Father Heart disease Mother Hypertension Hypercholesteremia Brother Hypertension Other No pertinent family history Denies family history of Ovarian cancer Prostate cancer Myocardial infarction Colorectal cancer Social History Smoking Status: Never smoker Second Hand Exposure: Yes (hx growing up); Do You Dip or Chew Tobacco: No; Tobacco Cessation Education Requested by Patient: No Hx Alcohol Use: No (hx none for many years) Hx Substance Use: No Preferred Language: Wolof Communication Ability: Effective Visual Impairment: No Limitations Hearing Ability: Normal 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 Beliefs That Will Affect Care: None marital status: Current Living Situation: Spouse current occupational status: employed Other Information That Helps Us Care for You: No Feels Safe at Home: Yes Safety Concerns: Feels Safe At This Time Childhood Exposure to Second-Hand Smoke: Yes (parent smoked) caffeine: Yes Seatbelt Use: always Assistive Devices: Glasses Assistive Devices Comment: prn cane Review of Systems Review of Systems: All systems reviewed & are unremarkable except as noted in Subjective Physical Exam Physical Exam: General: NAD, VS as above Resp: normal respiratory effort, lungs clear to auscultation, On room air CV: RRR, no murmur, Abd: normal bowel sounds, non tender, no hepatosplenomegaly Extremities: Ice wrap and Ha bandage in place over right leg. Able to wiggle toes bilaterally. Sensation intact. Neuro: A&O x3, Results & Data Results & Data Vital Signs (Past 12 Hours) Vital Signs Temp Pulse Pulse Resp BP BP Pulse Ox 10/16/24 12:30 98.6 F 63 16 167/90 H 98 10/16/24 12:00 63 14 165/91 H 97 10/16/24 11:30 66 12 135/87 98 10/16/24 11:15 63 14 154/88 H 94 10/16/24 11:00 64 12 153/83 H 93 10/16/24 10:45 71 14 136/91 92 10/16/24 10:30 97.5 F L 66 16 139/72 95 10/16/24 10:20 61 13 136/76 97 10/16/24 10:10 66 17 125/78 96 10/16/24 10:00 63 21 136/78 95 10/16/24 09:50 97.3 F L 62 12 93/70 L 96 10/16/24 05:51 97.9 F 74 20 126/78 96 O2 Del Method O2 Flow Rate 10/16/24 12:30 Room Air 10/16/24 12:00 Room Air 10/16/24 11:30 Room Air 10/16/24 11:15 Room Air 10/16/24 11:00 Room Air 10/16/24 10:45 Room Air 10/16/24 10:30 Room Air 10/16/24 10:20 Oxymask 2 10/16/24 10:10 Oxymask 4 10/16/24 10:00 Oxymask 4 10/16/24 09:50 Room Air 10/16/24 05:51 Room Air Laboratory Results [id number] glucose reviewed PG Care Time/CCT Total # of Minutes Spent Total Time Spent with Patient: Total time spent is greater than 50% in coordination of care (as documented) at patient's floor/unit and/or counseling patient: Coding Level of Care Code 68241 IN/OBS CONSULT LVL 3,45M Diagnoses S/P right knee surgery Z98.890 Diabetes mellitus E11.9 Heart failure with mildly reduced ejection fraction (HFmrEF) I50.22 Overactive bladder N32.81
--- NOTE | 2024-10-16 13:47 | Pharmacy Report ---
Pharmacy Glycemic Short Note 2 - Date of Service October 16, 2024 - Glycemic Short BSG Results (Last 24 hours): 10/16/24 10/16/24 05:34 10:00 POC Glucose 103 H 114 H 10/16/24 13:50 POC Glucose 133 H OUTPATIENT ANTIDIABETIC REGIMEN: * Metformin 500 PO BID * Mounjaro 15mg Q7D (last dose 10/04/24) * Jardiance 10mg PO Daily * A1c 5.9% 09/18/24 ASSESSMENT: * 69 yo F, PHM T2DM, HFmrEF, overactive bladder, HTN, POD0 Right TKA. * Patient received IV dexamethasone preop - post op BSG at goal, 133mg/dl, will wait to give basal insulin until tonight, PRN. * Further basal dosing in AM, scheduled for Dexamethasone 10mg IV x1 tomorrow AM. * Begin with NovoLog only at this time. PLAN FOR INPATIENT GLYCEMIC CONTROL: * Hold outpatient diabetes medications * Basal insulin * Lantus 0-15 units SQ HS, 0 units for BSG < 180, 15 units for BSG 180 or greater * Bolus insulin * NovoLog per scale ACHS or Q6hrs while NPO * Goal Range: Low 110 mg/dL - High 140 mg/dL * Correction Factor: 25 mg/dL/unit * Nutritional / Prandial insulin per carb ratio of 1 unit per 8 grams CHO consumed
[2024-10-16] MEDS: SODIUM CHLORIDE 0.9% 1,000 ML IV SCH (13:57)
[2024-10-16] MEDS: INSULIN ASPART PER UNIT CHARGE SC SCH (13:59)
[2024-10-16] MEDS: Scopolamine CHECK PATCH PLACEMENT SCH (15:14)
[2024-10-16] MEDS: ASCORBIC ACID 500 MG TAB PO SCH (16:57)
[2024-10-16] MEDS: FERROUS GLUCONATE 324 MG TAB PO SCH (16:58)
[2024-10-16 19:56] VITALS: RESP 16
[2024-10-16] MEDS: SENNA 8.6 MG TAB PO SCH (20:09)
[2024-10-16] MEDS: SIMVASTATIN 20 MG TAB PO SCH (20:10)
[2024-10-16] MEDS: DOCUSATE SODIUM 100 MG CAP PO SCH (20:10)
[2024-10-16] MEDS: LANTUS PER UNIT CHARGE SC SCH (20:58)
[2024-10-17 07:07] LABS: Hematocrit (blood only) 32.5 % (37.0-47.0); Hemoglobin 10.8 g/dl (12.0-16.0); Mean Corpuscular Hemoglobin 31.6 pg (25.0-34.0); Mean Corpuscular Volume 95.0 fL (80.0-100.0); Platelet Count 163 K/uL (130-400); RDW Standard Deviation 44.8 fL (36.4-46.3); Red Blood Count 3.42 M/uL (4.20-5.40); White Blood Count 10.15 K/ul (4.8-10.8)
[2024-10-17] MEDS: CHOLECALCIFEROL 25 MCG (1000 UNITS) TAB PO SCH (07:41)
[2024-10-17] MEDS: ASPIRIN 81 MG ECTAB PO SCH (07:42)
[2024-10-17] MEDS: OXYBUTYNIN CHLORIDE XL 5 MG TABCR PO SCH (07:42)
[2024-10-17] MEDS: VIBEGRON 75 MG TAB PO SCH (07:42)
[2024-10-17] MEDS: CYANOCOBALAMIN (B-12) 500 MCG TABLET PO SCH (07:42)
[2024-10-17] MEDS: MULTIVITAMIN TAB PO SCH (07:43)
[2024-10-17 07:52] LABS: Anion Gap 5.0 (3-11); Blood Urea Nitrogen 39.0 mg/dl (6-23); Calcium 8.5 mg/dl (8.6-10.3); Carbon Dioxide 26.0 mmol/L (21-32); Chloride 105.0 mmol/L (98-107); Creatinine Clr Calc Pharmacy 38.4 ml/min; Glucose 119.0 mg/dl (70-99(Fasting)); Potassium 4.4 mmol/L (3.5-5.1); Sodium 136.0 mmol/L (136-145)
[2024-10-17] MEDS: VALSARTAN/SACUBITRIL 103/97MG TAB PO SCH (08:45)
--- NOTE | 2024-10-17 09:29 | Orthopedic Progress Note ---
Date of Service October 17, 2024 Assessment & Plan (1) S/P right knee surgery: Plan: POD1 s/p total knee arthroplasty - patient doing well this morning WBAT with walker PT/OT Diet - regular Frequently ice and elevate with blankets stacked under ankle DVT prophylaxis: ASA 81mg BID x 6 weeks, TEDS x 3 weeks, foot pumps while in hospital Pain control: Tylenol 1000mg q 8hrs, Celebrex 200mg BID, oxycodone 5-10mg q4-6 hrs for moderate pain Vitamin C and Iron supplementation BID x 2 weeks Dressing: Changed dressing to Mepilex dressing that patient can leave in-tact until f/u Discharge to [facility] when bed available, likely today, CM following Follow up as scheduled with [facility] in 2 weeks Admission and Anticipated Discharge Date Admission Date: October 16, 2024 Subjective Pt was seen and examined bedside. POD #1 s/p RTKA. Pt was admitted last night for observation. No major events over night. Vitals are stable. Labs unr emarkable. X-rays show normal post operative changed. Pt reports they are doing well and pain is controlled. They are tolerating PO intake and voiding adequate amounts. Has not yet worked with PT/OT. Pt denies F/C, N/V/D, SOB, CP. Pending PT eval, patient deemed stable and ready for [facility] Physical Exam Physical Exam: General: Pt laying in hospital bed AA&O, in NAD, calm and cooperative during exam Lower Extremity: Dressing in tact and not saturated. Incisions clean, dry and with hardly any drainage and no surrounding erythema, warmth or purulent drainage. Pt has full ROM of ankle and all 5 digits. Can flex knee to about 45 degrees this morning. Mepilex dressing was applied. Pt has 5/5 strength with resisted DF/PF. Not able to do SLR yet but can contract quad. Calf supple and non tender. NVI with sensation to light touch distally and good distal pulses present. Results & Data Vital Signs (Past 12 Hours) Vital Signs Temp Pulse Pulse Resp BP BP Pulse Ox 10/17/24 07:10 36.5 C 67 16 129/80 95 10/17/24 04:11 37.1 C 77 16 103/64 94 10/16/24 23:49 36.8 C 75 114/67 91 O2 Del Method 10/17/24 07:10 Room Air 10/17/24 04:11 Room Air 10/16/24 23:49 Room Air Laboratory Results 10/17/24 10/17/24 10/16/24 Range/Units 07:31 06:34 20:55 WBC 10.15 (4.8-10.8) K/ul RBC 3.42 L (4.20-5.40) M/uL Hgb 10.8 L (12.0-16.0) g/dl Hct 32.5 L (37.0-47.0) % MCV 95.0 (80.0-100.0) fL MCH 31.6 (25.0-34.0) pg MCHC 33.2 (32.0-36.0) g/dL RDW Std Deviation 44.8 (36.4-46.3) fL RDW Coeff of Adams 12.9 (11.5-14.5) % Plt Count 163 (130-400) K/uL MPV 10.6 (9.4-12.4) fL Sodium 136 (136-145) mmol/L Potassium 4.4 (3.5-5.1) mmol/L Chloride 105 (98-107) mmol/L Carbon Dioxide 26 (21-32) mmol/L Anion Gap 5 (3-11) BUN 39 H (6-23) mg/dl Creatinine 1.86 H (0.6-1.2) mg/dl Est Cr Clr Drug Dosing 38.4 ml/min eGFR 29.32 BUN/Creatinine Ratio 21.0 H (10-20) Glucose 119 H (70-99(Fasting)) mg/dl POC Glucose 111 H 127 H (70-99) mg/dl Calcium 8.5 L (8.6-10.3) mg/dl 10/16/24 10/16/24 10/16/24 Range/Units 16:13 13:50 10:00 WBC (4.8-10.8) K/ul RBC (4.20-5.40) M/uL Hgb (12.0-16.0) g/dl Hct (37.0-47.0) % MCV (80.0-100.0) fL MCH (25.0-34.0) pg MCHC (32.0-36.0) g/dL RDW Std Deviation (36.4-46.3) fL RDW Coeff of Adams (11.5-14.5) % Plt Count (130-400) K/uL MPV (9.4-12.4) fL Sodium (136-145) mmol/L Potassium (3.5-5.1) mmol/L Chloride (98-107) mmol/L Carbon Dioxide (21-32) mmol/L Anion Gap (3-11) BUN (6-23) mg/dl Creatinine (0.6-1.2) mg/dl Est Cr Clr Drug Dosing ml/min eGFR BUN/Creatinine Ratio (10-20) Glucose (70-99(Fasting)) mg/dl POC Glucose 153 H 133 H 114 H (70-99) mg/dl Calcium (8.6-10.3) mg/dl
[2024-10-17] MEDS ORDERED: FUROSEMIDE 40 MG TAB PO PRN (09:53)
--- NOTE | 2024-10-17 10:08 | Hospitalist Progress Note ---
"Date of Service October 17, 2024 Assessment & Plan (1) S/P right knee surgery: (2) ANTELMO (acute kidney injury): (3) CKD (chronic kidney disease): (4) Heart failure with mildly reduced ejection fraction (HFmrEF): (5) Diabetes mellitus: (6) Overactive bladder: Plan Brenda is a 69-year-old female with a past medical history of diabetes, HFrEF, overactive bladder, HTN and knee pain who presented for elective knee surgery with Dr. Zhang. Hospitalist consulted for medical management. #S/p knee surgery | ANTELMO on CKD - Pain control, DVT prophylaxis, activity level, discharge planning per primary team - Acute blood loss anemia secondary to surgery. Stable at 10.8 - monitor hgb with AM CBC - Postoperative ANTELMO with Cr 1.86, baseline ~1.4 - likely due to acute blood loss / volume depletion with recent surgery. Anticipate this will self-correct, defer on IV fluids at this time given HFrEF. Monitor renal function with AM BMP - Plan per primary team is to discharge patient to [facility] today. Discussed recommendations of holding off on Celebrex / NSAIDs for now given ANTELMO with [employer] [facility]. Added instructions/recommendations to DC summary for [facility] #DMT2 - Home meds: metformin BID, jardiance and Mounjaro (last dose 10/04) - Pharmacy glycemic consult per primary team #HFrEF | HTN - Continue Entresto, Coreg, Lasix prn - reports she is only used as 5 times and she was given a prescription #OAB - continue tolterodine (or formulary equivalent) and Gemtesa Thank you for allowing us to participate in the care of this patient, please reach out with any questions or concerns. Since patient is being discharged today, will sign off at this time. Admission and Anticipated Discharge Date Admission Date: October 16, 2024 Supervising Physician Co-Signing Physician Notes chart reviewed, case d/w S Daniela FELIPE. as above Subjective Patient seen and evaluated in bedside chair. She reports some right knee pain at this time but states she was just given pain medicine after working with PT. She states she was able to do a short walk with therapy. She slept well last night, is well tolerating her diet, and is passing gas. No BM yet. We discussed the results of her lab work from this morning. Encouraged her to drink plenty of fluids today. No additional questions or concerns at this time. Physical Exam Physical Exam: General: No acute distress, nondiaphoretic, well-developed, well-nourished. Skin: Warm, dry. Extremities: Right knee with Ha wrap in place. Teds on lower extremities bilaterally. Normal sensation and motor function bilaterally. Cardiac: Regular rate and rhythm without murmurs gallops or rubs. Pulm: Clear to auscultation bilaterally without wheezes, rales or rhonchi. Normal respiratory effort. 95% on room air. Abdominal: Soft, nontender, nondistended. Bowel sounds present. Neuro: A&O x3. No focal neurological deficits. Results & Data Results & Data Vital Signs (Past 12 Hours) Vital Signs Temp Pulse Pulse Resp BP BP Pulse Ox 10/17/24 09:40 129/80 10/17/24 07:10 97.7 F 67 16 129/80 95 10/17/24 04:11 98.8 F 77 16 103/64 94 10/16/24 23:49 98.2 F 75 114/67 91 O2 Del Method 10/17/24 09:40 10/17/24 07:10 Room Air 10/17/24 04:11 Room Air 10/16/24 23:49 Room Air Laboratory Results Reviewed CBC Reviewed BMP PG Care Time/CCT Total # of Minutes Spent Total Time Spent with Patient: Total time spent is greater than 50% in coordination of care (as documented) at patient's floor/unit and/or counseling patient: Coding Level of Care Code 00319 SUB INP/OBS CARE 2/35MIN Diagnoses S/P right knee surgery Z98.890 ANTELMO (acute kidney injury) N17.9 CKD (chronic kidney disease) N18.9 Heart failure with mildly reduced ejection fraction (HFmrEF) I50.22 Diabetes mellitus E11.9 Overactive bladder N32.81"
--- NOTE | 2024-10-17 10:13 | Operative Report ---
Post Operative Report Pre & Post Diagnosis Operation Date: 10/16/24 07:00 Pre-Op Diagnosis: Right Knee Osteoarthritis Post-Op Diagnosis: Right Knee Osteoarthritis I identified the patient and participated in the time-out.: Yes Procedure Operation Date: 10/16/24 07:00 Actual Procedures p Right Total knee replacement, imageless computer assisted navigation (Right) - Wang Zhang MD Surgeon Wang Zhang MD Pyrometer Operator Kera Saldivar PA-C (No fellow avail) Estimated Blood Loss 50 Findings See Below Examined Under Anesthesia: ROM -- There was 5 degrees to 115 degrees of flexion Ligamentous examination -- revealed stable Oracio, posterior drawer, varus and valgus stress at 5 and 30 degrees. [place]bridge Grade IV changes of Patellofemoral & Medial compartments, grade II- III changes in Lateral compartments. Fluids 1200 cc Specimens Right knee contents Anesthesia Type MAC Spinal Regional Complications none Indications This is a 69-year-old female who has clinical and radiographic findings consistent with osteoarthritis of the a right knee. I recommended that a right total knee replacement be performed. The patient understands the risks of surgery, which include but not limited to: bleeding, infection, re-operation, damage to nerves and arteries, continued knee pain, knee stiffness, DVT, and . The patient understands all these instructions and explanations, all his questions have been satisfactorily addressed, and the patient has elected to proceed. Informed consent was signed. Description of Procedure IMPLANTS: 1. Femur: Triathlon #4 Right PS. 2. Tibia: Triathlon #3 [place]. 3. Insert: Triathlon #3 x 11 mm PS X3 poly. 4. Patella: Triathlon A32 x 10 mm X3 poly. 5. Palacos + G cement. Kera Saldivar PA-C is assisting with positioning, retracting, and closure due to fellow not available. Procedure: The patient was taken to the Operating Room and placed in the supine position after spinal and adductor canal nerve block was administered. My initials and a multidisciplinary time-out were used to identify the right leg as the correct operative limb. A tourniquet was placed high on the thigh. Prior to the incision, 3 grams of intravenous Ancef were given. One g of TXA was given pre- operatively and another after the tourniquet was released. The right leg was then prepped and draped in a standard sterile fashion. An Esmarch was used to exsanguinate the leg, and the tourniquet was inflated to 250 mmHg. The planned mid-line 20 cm incision was created exposing the extensor mechanism. The medial parapatellar arthrotomy was made and the patella was everted. The patella was addressed first. It was prepared by reaming from 23 mm down to 13 mm. An A32 button was found to fit best. The peg holes were made in the standard fashion. The femur was addressed next and using computer assisted OrthoAlign with 3 degrees of flexion and 0 degrees of valgus, removing 10 mm in the standard fashion for the distal cut. The cut was made and after making the Tibial cut and checking the balancing using OrthoAlign Lantern, Flexion/Extension gap 7 mm laterally & 9 mm medially. The Lantern was set to 8 which matched exactly the posterior referencing guide, which was AP shifted 1.5mm anteriorly. The 4-in-1 cutting block for a size 4 femur was placed. These cuts and the cuts to place the box were made in the standard fashion. The tibia cut with using imageless computer assisted OrthoAlign, taking 2 mm from the medial low side.A #3 Tibial baseplate fit well. A trial with a 11 mm spacer showed excellent stability in both flexion and extension, with good ligament balance, and thumbs free patellar tracking. Range of motion of 0-120 degrees. The tibial baseplate was prepped for the keel and stem. All components were removed. 90 ml of total knee cocktail were injected into the soft tissues and periosteum. All surfaces were copiously irrigated prior to placement of the components. The Tibial baseplate followed by femoral component were cemented in place and a 11 mm trial placed. Next, the patellar button was placed using the same cement. Once the cement had cured, the range of motion and stability were unchanged. The 11 mm X3 poly was placed. Again, the range of motion and stability were unchanged. The tourniquet was deflated. Hemostasis was obtained. Another 1g TXA was given. The extensor mechanism was closed with 1-0 Vicryl and 0 Stratafix with the knee bent approximately 60 degrees in a standard fashion. The peritenon and deep fascia was closed with 2-0 Vicryl. The subcutaneous layer was closed with 3-0 Vicryl. The skin was closed with Zipline and shield. The limb was cleaned and dried. 4x4 dressing was placed over top followed by ABDs, sterile Webril, and a foot to thigh Ha bandage. The patient was then transferred to the Recovery Room in stable condition. The sponge and needle counts were correct. POST-OP INSTRUCTIONS: The patient will be WBAT. The patient will be admitted to the hospital. Complete 24-hour course antibiotics. Labs will be obtained during the stay. DVT prophylaxis will include aspirin for 6 weeks, TEDs, and mechanical foot pumps. The dressing will be changed, postop day #2-3, and covered with a Silverlon dressing. I attest to the content of the Intraoperative Record and any orders documented therein. Any exceptions are noted below.
--- NOTE | 2024-10-17 11:03 | Pharmacy Report ---
Pharmacy Glycemic Short Note 2 - Date of Service October 17, 2024 - Glycemic Short BSG Results (Last 24 hours): 10/16/24 10/16/24 10/16/24 13:50 16:13 20:55 Glucose POC Glucose 133 H 153 H 127 H 10/17/24 10/17/24 06:34 07:31 Glucose 119 H POC Glucose 111 H OUTPATIENT ANTIDIABETIC REGIMEN: * Metformin 500 PO BID * Mounjaro 15mg Q7D (last dose 10/04/24) * Jardiance 10mg PO Daily * A1c 5.9% 09/18/24 ASSESSMENT: 10/17 * Brenda received 10 units of bolus insulin yesterday POD#1 * Fasting BSG this AM acceptable, no indication for basal insulin at this time. She received 8mg IV dexamethasone perioperatively, 10mg IV dexamethasone this AM. NovoLog at a weight based stress of 1.5, no changes at this time as BSGs well controlled yesterday. 10/16 * 69 yo F, PHM T2DM, HFmrEF, overactive bladder, HTN, POD0 Right TKA. * Patient received IV dexamethasone preop - post op BSG at goal, 133mg/dl, will wait to give basal insulin until tonight, PRN. * Further basal dosing in AM, scheduled for Dexamethasone 10mg IV x1 tomorrow AM. * Begin with NovoLog only at this time. PLAN FOR INPATIENT GLYCEMIC CONTROL: * Hold outpatient diabetes medications * Basal insulin * Lantus 0-15 units SQ HS, 0 units for BSG < 180, 15 units for BSG 180 or greater * Bolus insulin * NovoLog per scale ACHS or Q6hrs while NPO * Goal Range: Low 110 mg/dL - High 140 mg/dL * Correction Factor: 25 mg/dL/unit * Nutritional / Prandial insulin per carb ratio of 1 unit per 8 grams CHO consumed
[2024-10-17 11:23] VITALS: BP 111/71; PULSE 63; TEMP 97.2; O2SAT 93
[2024-10-17] MEDS: dexAMETHasone 10 MG in SYRINGE 0 ML IV SCH (12:35)
[2024-10-19] MEDS ORDERED: Scopolamine REMOVE TRANSDERM PATCH ONE (08:00)
== END 2024-10-17 12:36 ==
LOC: ASU 05:31 → 3E 05:31